=== PATIENT | female | born 1940 | race Two or more races ===

== ENCOUNTER 2020-02-25 21:09 | Inpatient (IN) | payer MEDICARE, OTHER ==
[~2020-02-25] VITALS: Ht 162.6 cm; Wt 87.3 kg
[2020-02-25] MEDS ORDERED: ACETAMINOPHEN 650 MG/SUPP.RECT RC ONE ×2 (21:25→21:30)
--- NOTE | 2020-02-25 21:31 | NUR ---
Rickie toledo in [facility] - 02/25/20 at 2137 by CHRISTAOR CALLED RT FOR COVID TEST
--- NOTE | 2020-02-25 21:34 | NUR ---
updated temp; rectal 100.7
--- NOTE | 2020-02-25 21:37 | NUR ---
CALLED LAB FOR COVID, CALLED RT FOR ABG.
--- NOTE | 2020-02-25 21:43 | NUR ---
RT AT BEDSIDE.
--- NOTE | 2020-02-25 21:44 | NUR ---
BIBRA FROM [facility] TO ER BED 5. AWAKE, ALERT AND ABLE TO FOLLOW COMMAND. IN MODERATE RESP DISTRESS, BREATHING RAPID AND SHALLOW W/ O2 SAT @ 95% ON 4LPM VIA NC. BROUGHT IN FOR SOB AND FEVER. RECTAL TEMP NOTED @ 100.7. NOTED WHEEZING. MD AT BEDSIDE FOR EVAL. IV LINE OBTAINED ON L HAND 20G. BLOOD DRAWN AND GIVEN TO SKI GUIDE AT BEDSIDE.. PT ON MONITOR WILL CONTINUE TO MONITOR PT.
[2020-02-25 21:45] LABS: BASOPHILS % (AUTO) 0.1 % (0.0-2.0); EOSINOPHILS % (AUTO) 0.1 % (0.0-6.0); HEMATOCRIT 41 % (33-45); HEMOGLOBIN 13.7 g/dL (11.5-14.8); LYMPHOCYTES # (AUTO) 0.8 /CMM (0.8-4.8); LYMPHOCYTES % (AUTO) 6.6 % (20.0-44.0); MEAN CORPUSCULAR HGB CONC 33 g/dl (31.0-36.0); MEAN CORPUSCULAR VOLUME 88 fL (82-100); MONOCYTES # (AUTO) 0.6 /CMM (0.1-1.30); MONOCYTES % (AUTO) 4.9 % (2.0-12.0); NEUTROPHILS # (AUTO) 10.5 /CMM (1.8-8.9); NEUTROPHILS % (AUTO) 88.3 % (43.0-81.0); PLATELET COUNT (AUTO) 285 /CMM (150-450); RED BLOOD CELL COUNT(AUTO) 4.68 MIL/uL (4.0-5.2); WHITE BLOOD COUNT (AUTO) 11.9 K/uL (4.3-11.0)
[2020-02-25 21:51] LABS: CARBON DIOXIDE 27 mmol/L (21-32); CHLORIDE 98 mmol/L (98-107); GLUCOSE 216 mg/dL (74-106); POTASSIUM 3.9 mmol/L (3.5-5.1); SODIUM SERUM 135 mmol/L (136-145); UREA NITROGEN, BLOOD 17 mg/dL (7-18)
[2020-02-25 21:54] LABS: ABG BASE EXCESS 0.2 mmol/L; ABG OXYGEN SATURATION 95.9 % (92.0-98.5); ABG PCO2 37.9 mmHg (35.0-45.0); ABG PH 7.426 (7.350-7.450); ABG PO2 81.1 mmHg (75.0-100.0); AaDO2 189.4 mmHg; COHb 0.7 % (0.5-1.5); MetHb 0.4 % (0.0-1.5); O2Hb 94.8 % (94.0-97.0); SITE, ABG Left Radial; VENT MODE, BG Nasal Cannula
--- NOTE | 2020-02-25 22:04 | NUR ---
CVID, FLU AND MRSA SWAB DONE. URINE COLLECTED BY IN & OUT CATH W/ STRICT STERILE TECHNIQUE OBSERVED
[2020-02-25 22:07] LABS: CREATINE KINASE, TOTAL 114 U/L (26-192); FERRITIN 117 ng/mL (8-388)
[2020-02-25 22:08] LABS: C-REACTIVE PROTEIN 16.1 mg/dL (0.0-0.9)
[2020-02-25 22:09] LABS: ALANINE AMINOTRANSFERASE 72 U/L (12-78); ALKALINE PHOSPHATASE 78 U/L (46-116); ASPARTATE AMINOTRANSFERASE 39 U/L (15-37); BILIRUBIN,TOTAL 0.8 mg/dL (0.2-1.0); CALCIUM, SERUM 8.8 mg/dL (8.5-10.1)
[2020-02-25 22:10] LABS: ALBUMIN 3.5 g/dL (3.4-5.0); TOTAL PROTEIN, SERUM 7.5 g/dL (6.4-8.2)
[2020-02-25 22:11] LABS: B-TYPE NATRIURETIC PEPTIDE 104 PG/ML (0-125)
[2020-02-25 22:15] LABS: APPEARANCE,URINE Clear (CLEAR); BILIRUBIN,URINE SMALL (NEGATIVE); BLOOD, URINE Negative Ery/uL (NEGATIVE); COLOR,URINE Dark (YELLOW); KETONES,URINE 40 (NEGATIVE); LEUKOCYTE ESTERASE ,URINE Negative (NEGATIVE); NITRITE, URINE Negative (NEGATIVE); PH,URINE 5.5 (5.0-8.0); PROTEIN,URINE 30 mg/dl (NEGATIVE); UGLUCOSE Negative (NEGATIVE); UROBILINOGEN,URINE 0.2 EU/dL (0.2)
[2020-02-25 22:49] LABS: BACTERIA,URINE Few /HPF (None Seen); MUCUS,URINE Few /LPF (None Seen); RBC,URINE 0-2 /HPF (0-2); SQUAMOUS EPITHELIAL CELL,UR Few /HPF (None Seen); WBC,URINE 0-2 /HPF (0-3)
[2020-02-25 23:13] LABS: D-DIMER 4.78 mg/L(FEU (0.17-0.50)
--- NOTE | 2020-02-25 23:35 | NUR ---
ER DOC ON PHONE WITH HOSPITALIST
[2020-02-26] VITALS (33 sets, daily range): BP systolic 64–148; BP diastolic 40–89
[2020-02-26] MEDS ORDERED: VANCOMYCIN 1 GM in IV D5W 250 ML IV ONE ×2
[2020-02-26] MEDS ORDERED: PIPERACILLIN /TAZOBACTAM 3.375 G in IV D5W 50 ML IV ONE ×2
--- NOTE | 2020-02-26 00:10 | NUR ---
ER DOC ON PHONE WITH JAME RADIOLOGIST
[2020-02-26] MEDS ORDERED: CHOL400T11 GT (00:13)
[2020-02-26] MEDS ORDERED: SITA100T PO (00:13)
[2020-02-26] MEDS ORDERED: PANT20TA2 PO (00:13)
[2020-02-26] MEDS ORDERED: MEMA10TA PO (00:13)
[2020-02-26] MEDS ORDERED: DONE10TA11 PO (00:13)
--- NOTE | 2020-02-26 00:18 | NUR ---
PAGED CLOTH NEUTRALIZER GEN SURGERY
[2020-02-26] MEDS ORDERED: PIPERACILLIN /TAZOBACTAM 3.375 G VIAL IV ONE ×2 (00:20→06:22)
[2020-02-26] MEDS ORDERED: VANCOMYCIN 1 GM VIAL ONE (00:20)
[2020-02-26 00:33] LABS: BILIRUBIN,DIRECT 0.3 mg/dL (0.0-0.2)
--- NOTE | 2020-02-26 00:45 | NUR ---
PAGED AIRCRAFT PAINTER GEN SURGERY. NO RESPONSE
--- NOTE | 2020-02-26 01:15 | NUR ---
PAGED RECREATION OFFICER GEN SURGERY. NO RESPONSE
--- NOTE | 2020-02-26 01:45 | NUR ---
PAGED OTR OWNER OPERATOR GEN SURGERY. NO RESPONSE
--- NOTE | 2020-02-26 02:00 | NUR ---
NGT INSERTED PER ORDERED. PLACEMENT VIRIFIED BY AUSCULTATION WITH POSTIVE GURGLING SOUND OVER EPIGASTRIC ABDOMEN. NOTED CLEAR LIQUID GASTRIC RESIDUAL.
--- NOTE | 2020-02-26 02:15 | NUR ---
PAGED DIRECTOR SCRIPT GEN SURGERY. NO RESPONSE
--- NOTE | 2020-02-26 02:45 | NUR ---
PAGED PAYMENT SPECIALIST GEN SURGERY. NO RESPONSE
--- NOTE | 2020-02-26 03:00 | NUR ---
PAGED MEDICATION MANAGER GEN SURGERY. NO RESPONSE
--- NOTE | 2020-02-26 03:13 | NUR ---
PT IN BED AWAKE AND RESPONSIVE. ON ONGOING INTERMITTENT SUCTIONING, VSS. WILL CONT TO MONITOR ,
--- NOTE | 2020-02-26 03:30 | NUR ---
PAGED STENCIL PRINTER GEN SURGERY. NO RESPONSE
--- NOTE | 2020-02-26 03:50 | NUR ---
PAGED ARMHOLE PRESSER GEN SURGERY. NO RESPONSE
--- NOTE | 2020-02-26 04:10 | NUR ---
PAGED EXPANSION ENVELOPE MAKER HAND GEN SURGERY. NO RESPONSE
[2020-02-26] MEDS ORDERED: ONDANSETRON HCL/PF 4 MG/2 ML VIAL ONE (04:35)
[2020-02-26] MEDS ORDERED: MORPHINE SULFATE INJ 4 MG/ML DISP.SYRIN ONE (04:35)
--- NOTE | 2020-02-26 04:35 | NUR ---
PAGED ARCHITECT INTERNSHIP GEN SURGERY. NO RESPONSE
--- NOTE | 2020-02-26 04:50 | NUR ---
PAGED ALLERGY AND IMMUNOLOGY SPECIALIST GEN SURGERY. NO RESPONSE
--- NOTE | 2020-02-26 04:51 | NUR ---
SECOND IV LINE STARTED ON R HAND W/ GOOD BLOOD DRAW
[2020-02-26] MEDS ORDERED: MORPHINE SULFATE INJ 4 MG/ML DISP.SYRIN IV ONE (05:00)
[2020-02-26] MEDS ORDERED: ONDANSETRON HCL/PF 4 MG/2 ML VIAL IV ONE (05:00)
--- NOTE | 2020-02-26 05:05 | NUR ---
PAGED CRAB STEAMER GEN SURGERY. NO RESPONSE
[2020-02-26] MEDS ORDERED: PIPERACILLIN /TAZOBACTAM 3.375 G in IV D5W 50 ML IV SCH ×2 (06:00→12:00)
--- NOTE | 2020-02-26 06:07 | NUR ---
PT WAS TRANSFERRED TO ICU UNDER ACLS
--- NOTE | 2020-02-26 06:15 | NUR ---
MARKETING SALES SUPERVISORBANKING CENTER MANAGER NOTES RECEIVED PATIENT FROM ER VIA RLIKELY, PATIENT ABLE TO AMBULATE 2 STEPS WITH STANDBY ASSISTANCE TO HOSPITAL BED. PATIENT IS AWAKE, ALERT AND ORIENTED X3, ABLE TO VERBALIZE NEEDS. PATIENT NOTED TO BE SHORT OF BREATH UPON MINIMAL EXERTION, WITH AUDIBLE WHEEZING. PATIENT ON O2 VIA NC @ 3LPM, SPO2 > 92% AT THIS TIME. SKIN INTACT, NOTED WITH SCATTERED SCARS. LEFT AND RIGHT HAND #20 GAUGE, PATENT AND INTACT, FLUSHED WITH NS, FREE FROM ANY S/S OF INFILTRATION OR PHLEBITIS. WILL START IV FLUIDS ORDERED
[2020-02-26] MEDS ORDERED: METRONIDAZOLE 500MG/ NS 100ML 100 ML IV ONE ×2 (06:23→11:55)
[2020-02-26] MEDS ORDERED: ACETAMINOPHEN 325 MG TABLET PO PRN (06:30)
[2020-02-26] MEDS ORDERED: ZOLPIDEM TARTRATE 5 MG TABLET PO PRN (06:30)
[2020-02-26] MEDS ORDERED: MAGNESIUM HYDROXIDE 30 ML UDC PO PRN (06:30)
[2020-02-26] MEDS ORDERED: HYDROCODONE/APAP 5/325MG 1 EACH TABLET PO PRN (06:30)
[2020-02-26] MEDS ORDERED: DEXTROSE 50%-WATER 50 ML DISP.SYRIN IV PRN (06:30)
[2020-02-26] MEDS ORDERED: IV NS 0.9% 1,000 ML IV PRN (06:30)
[2020-02-26] MEDS ORDERED: ONDANSETRON HCL/PF 4 MG/2 ML VIAL IVP PRN (06:30)
[2020-02-26] MEDS ORDERED: Z GUARD REMEDY 2 OZ OINT TP PRN (06:30)
[2020-02-26] MEDS: METRONIDAZOLE 500MG/ NS 100ML 500 MG in PREMIX 1 EA IV SCH ×3 (06:32→19:06)
--- NOTE | 2020-02-26 07:30 | NUR ---
HOME HEALTH MANAGER AM NOTES PATIENT IN BED, RESTING, AWAKE, ALERT AND ORIENTED X3, ABLE TO VERBALIZE NEEDS. PATIENT NOTED TO BE SHORT OF BREATH UPON MINIMAL EXERTION, WITH AUDIBLE WHEEZING. PATIENT ON O2 VIA NC @ 3LPM, SPO2 > 92% AT THIS TIME. SKIN INTACT, NOTED WITH SCATTERED SCARS. LEFT AND RIGHT HAND #20 GAUGE, PATENT AND INTACT, FLUSHED WITH NS, NS AT 75 ML/HR ONGOING, SITE CLEAR, REMAIN ON NPO FOR NOW, DR. MATT RITTER TO SEE PATIENT. INDEPENDENT OF BED MOBILITY, SAFETY MEASURES IN PLACE, SR UP X 2, CALL LIGHT WITHIN REACH, BED LOW LOCKED, WILL MONITOR CLOSELY.
[2020-02-26 07:47] LABS: BASOPHILS % (AUTO) 0.1 % (0.0-2.0); HEMATOCRIT 37 % (33-45); HEMOGLOBIN 12.4 g/dL (11.5-14.8); LYMPHOCYTES % (AUTO) 5.7 % (20.0-44.0); MEAN CORPUSCULAR HGB CONC 33 g/dl (31.0-36.0); MEAN CORPUSCULAR VOLUME 88 fL (82-100); MONOCYTES # (AUTO) 1.1 /CMM (0.1-1.30); MONOCYTES % (AUTO) 6.4 % (2.0-12.0); NEUTROPHILS # (AUTO) 15.4 /CMM (1.8-8.9); NEUTROPHILS % (AUTO) 87.8 % (43.0-81.0); PLATELET COUNT (AUTO) 249 /CMM (150-450); RED BLOOD CELL COUNT(AUTO) 4.24 MIL/uL (4.0-5.2); WHITE BLOOD COUNT (AUTO) 17.6 K/uL (4.3-11.0)
[2020-02-26 08:01] LABS: CALCIUM, SERUM 8.3 mg/dL (8.5-10.1); MAGNESIUM 1.7 mg/dL (1.8-2.4); PHOSPHORUS 4.1 mg/dL (2.5-4.9); POTASSIUM 4.1 mmol/L (3.5-5.1)
[2020-02-26] MEDS ORDERED: FEE PK DOSING 1 MIN EA MC ONE (08:01)
--- NOTE | 2020-02-26 09:15 | NUR ---
RN NOTES PATIENT NPO SEEN BY DR. EMERSON RITTER EARLIER. FOR EX-LAP VS OPEN. CONSENT OBTAINED FROM DAUGHTER BEN PALMER,
[2020-02-26] MEDS: Magnesium 1GM/D5W 100ML PREMIX 100 ML IV SCH ×2 (10:03→11:03)
--- NOTE | 2020-02-26 10:25 | NUR ---
RN NOTES PATIENT PICKED UP FOR SCHEDULED SURGERY
[2020-02-26] MEDS ORDERED: FENTANYL PF 100MCG/2ML AMPUL ONE ×2 (10:39→10:40)
[2020-02-26] MEDS ORDERED: LIDOCAINE HCL/MPF 1% 30 ML VIAL IJ ONE (10:47)
[2020-02-26] MEDS ORDERED: BUPIVACAINE MPF 0.5% W/EPI INJ 30 ML VIAL ONE (10:47)
[2020-02-26] MEDS ORDERED: PIPERACILLIN /TAZOBACTAM 3.375 G in IV D5W 100 ML IV SCH (12:00)
[2020-02-26] MEDS: BLOOD SUGAR DIAGNOSTIC 1 EACH STRIP IN SCH ×2 (12:00→18:18)
[2020-02-26] MEDS ORDERED: MIDAZOLAM HCL 2 MG/2ML VIAL ONE ×2 (12:23)
[2020-02-26] MEDS ORDERED: METHYLENE BLUE 10 ML VIAL ONE (13:22)
[2020-02-26] MEDS ORDERED: NOREPINEPHRINE 8 MG in IV D5W 500 ML IV PRN (13:30)
[2020-02-26] MEDS ORDERED: NOREPINEPHRINE 8 MG in IV NS 0.9% 242 ML IV PRN ×2 (13:30→23:30)
[2020-02-26] MEDS ORDERED: ALBUMIN 5% 250 ML IV ONE ×2 (13:36→13:56)
[2020-02-26] MEDS ORDERED: ALBUMIN 25% 0 ML IV ONE (13:36)
[2020-02-26 14:22] LABS: HEMOGLOBIN 10.6 g/dL (11.5-14.8)
[2020-02-26] MEDS ORDERED: EPINEPHRINE (1:1000) 5 MG in IV NS 0.9% 250 ML IV PRN (14:30)
[2020-02-26] MEDS ORDERED: MORPHINE SULFATE INJ 2 MG/ML DISP.SYRIN IV PRN (15:30)
--- NOTE | 2020-02-26 15:45 | NUR ---
RN NOTES PATIENT BACK FROM SURGERY, S/P LAPAROSCOPIC COLON RESECTION ; PERFORATED VISCUS, BY DR. EMERSON RITTER. PATIENT NONVERBAL, ASLEEP, LETHARGIC, ETT 7.5/ 22 CM LIP. SETTING ASSISTED TV 500, FIO2 100%, AC 18 PEEP 5.NOT IN ANY DISTRESS. WITH SURGICAL INCISION MID ABDOMEN, CDI DRESSING IN PLACE. BESS DRAIN IN PLACE; RIGHT SIDE ABDOMEN WITH 115 ML SANGUINOUS OUTPUT AND LEFT SIDE ABDOMEN WITH 45 ML SANGUINOUS OUTPUT. PHILLIP CATHETER IN PLACE WITH GREENISH URINE OUTPUT ADEQUATE AMOUNT. PATIENT ACCOMPANIED BY DR. GARCIA ANESTHESIOLOGIST, SPOKE WITH DR. GOMEZ. PER HIM PATIENT WAS GIVEN 3700 ML LR AND 500 ML ALBUMIN WITH BLOOD LOSS OF 500 ML. 2 UNITS PRBC ON STAND BY. PER DR. RITTER, ORDERED FOR STAT CXR, CBC, BMP, CMP, LIPID PANEL AND ABG.
[2020-02-26] MEDS ORDERED: FLUCONAZOLE IN NS,PREMIX 400 MG in PREMIX 1 EA IV ONE ×2 (16:00)
[2020-02-26 16:28] LABS: ABG BASE EXCESS -8.9 mmol/L; ABG OXYGEN SATURATION 97.8 % (92.0-98.5); ABG PCO2 43.3 mmHg (35.0-45.0); ABG PH 7.239 (7.350-7.450); ABG PO2 134.9 mmHg (75.0-100.0); AaDO2 534.8 mmHg; COHb 0.3 % (0.5-1.5); MetHb 0.3 % (0.0-1.5); O2Hb 97.2 % (94.0-97.0); PEEP,BG 5 cm H2O; SITE, ABG A-Line; VT, ABG 500 mL
--- NOTE | 2020-02-26 16:35 | NUR ---
RN NOTES RECEIVED A CALL FROM ONE OF THE DAUGHTER ASKING FOR UPDATE, PER DAUGHTER, PATIENT'S REAL NAME IS GALINDO TERRAZAS BORN ON 44 BUT WHAT PATIENT IS ADMITTED BLAISE TERRAZAS [birth year]. PER ADMITTING, ITS BECAUSE IT IS WHAT IS SHOWING IN HER INSURANCE. WILL TALK TO THE DENTAL EQUIPMENT REPAIRER ABOUT THE SITUATION. CHARGE NURSE YOGESH LEWIS.
[2020-02-26 16:50] LABS: BASOPHILS % (AUTO) 0.2 % (0.0-2.0); EOSINOPHILS % (AUTO) 0.2 % (0.0-6.0); HEMATOCRIT 32 % (33-45); HEMOGLOBIN 10.4 g/dL (11.5-14.8); LYMPHOCYTES # (AUTO) 1.1 /CMM (0.8-4.8); LYMPHOCYTES % (AUTO) 32.7 % (20.0-44.0); MEAN CORPUSCULAR HGB CONC 32 g/dl (31.0-36.0); MEAN CORPUSCULAR VOLUME 91 fL (82-100); MONOCYTES # (AUTO) 0.1 /CMM (0.1-1.30); MONOCYTES % (AUTO) 3.8 % (2.0-12.0); NEUTROPHILS # (AUTO) 2.1 /CMM (1.8-8.9); NEUTROPHILS % (AUTO) 63.1 % (43.0-81.0); PLATELET COUNT (AUTO) 210 /CMM (150-450); RED BLOOD CELL COUNT(AUTO) 3.58 MIL/uL (4.0-5.2); WHITE BLOOD COUNT (AUTO) 3.3 K/uL (4.3-11.0)
[2020-02-26 16:58] LABS: POTASSIUM 3.3 mmol/L (3.5-5.1)
[2020-02-26 17:03] LABS: BILIRUBIN,TOTAL 1.1 mg/dL (0.2-1.0); TOTAL PROTEIN, SERUM 3.8 g/dL (6.4-8.2)
[2020-02-26] MEDS: NOREPINEPHRINE 8 MG in IV NS 0.9% 242 ML IV PRN ×2 (17:34→22:15)
[2020-02-26 17:44] LABS: CHOLESTEROL 33 mg/dL (<200); HDL CHOLESTEROL 18 mg/dL (40-60); LDL 13 mg/dL (0-99); TRIGLYCERIDES 30 mg/dL (30-150)
[2020-02-26] MEDS: HYDROCORTISONE SOD SUCCINATE 100 MG/2 ML VIAL IV SCH (17:50)
[2020-02-26] MEDS: VANCOMYCIN 1 GM in IV D5W 250 ML IV SCH (17:54)
[2020-02-26] MEDS: PROPOFOL 100 ML IV PRN (18:28)
[2020-02-26] MEDS: INSULIN REGULAR, HUMAN 100 UNIT/ML 3 ML VIAL SQ PRN (18:29)
--- NOTE | 2020-02-26 20:00 | NUR ---
RN NOTES RECEIVED PATIENT ORALLY INTUBATED WITH ETT AND VENT SETTING TOLERATED WELL. FIO2 CHANGE BY RT TO 80% FROM 100% PATIENT SEDATED WITH DIPRIVAN. OPENS EYES BUT REMAINED CALM AND COOPERATIVE. RESPONSIVE TO TACTILE STIMULI. NGT INTACT AND PATENT CONNECTED TO LIS W/ LIGHT GREENISH OUT PUT. IV SITE ON RIGHT AND LEFT HAND REMAINED INTACT AND PATENT. PATIENT WITH A-LINE CALIBRATED AND LEVELED. IV SITE ON RIJ RUNNING WITH NS @ 75 ML/HR. , LEVOPHED AND PROPOFOL WILL TITRATED ORDERED. 2 BESS ON LEFT AND RIGHT SIDE DRAINED WITH SEROSANGUINEOUS OUTPUT AND COLOSTOMY BAG WITH LIGHT GREENISH AND BROWNISH LIQ. STOOL. MID ABDOMEN WITH INTACT DRESSING. KEPT PT CLEAN AND DRY. REPOSITIONED Q2H AND PRN. WILL CLOSELY MONITOR.
--- NOTE | 2020-02-26 20:03 | NUR ---
RN NOTES ALL NEEDS MET AT THIS TIME. COVID TESTING CANCELLED BY KM AGUIRRE PROFESSOR OF EDUCATION FOR DR. EMERSON RITTER EARLIER. CHARGE NURSE YOGESH LEWIS. ENDORSED TO NEXT SHIFT FOR VENUS.
[2020-02-26] MEDS: MEROPENEM 1 G in IV NS 0.9% 100 ML IV SCH (21:13)
[2020-02-27] VITALS (89 sets, daily range): BP systolic 52–177; BP diastolic 30–101
[2020-02-27] MEDS: METRONIDAZOLE 500MG/ NS 100ML 500 MG in PREMIX 1 EA IV SCH ×4 (00:03→18:01)
[2020-02-27] MEDS: NOREPINEPHRINE 8 MG in IV NS 0.9% 242 ML IV PRN ×6 (00:05→08:50)
[2020-02-27] MEDS ORDERED: ACETAMINOPHEN 650 MG/20.3 ML UDC NG PRN (00:30)
[2020-02-27] MEDS ORDERED: ACETAMINOPHEN 650 MG/20 ML UDC- SA PATIENTS-PAIN ONLY GT PRN (00:30)
[2020-02-27] MEDS: BLOOD SUGAR DIAGNOSTIC 1 EACH STRIP IN SCH ×5 (00:57→23:41)
[2020-02-27] MEDS: INSULIN REGULAR, HUMAN 100 UNIT/ML 3 ML VIAL SQ PRN ×5 (01:02→23:43)
[2020-02-27] MEDS: PROPOFOL 100 ML IV PRN ×2 (01:03→04:42)
[2020-02-27] MEDS ORDERED: NOREPINEPHRINE 4 MG/4 ML AMPUL IV ONE ×3 (01:50→06:43)
[2020-02-27 05:00] LABS: BASOPHILS % (AUTO) 0.1 % (0.0-2.0); EOSINOPHILS % (AUTO) 0.1 % (0.0-6.0); HEMATOCRIT 37 % (33-45); HEMOGLOBIN 12.1 g/dL (11.5-14.8); LYMPHOCYTES % (AUTO) 8.8 % (20.0-44.0); MEAN CORPUSCULAR HGB CONC 33 g/dl (31.0-36.0); MEAN CORPUSCULAR VOLUME 90 fL (82-100); MONOCYTES # (AUTO) 0.6 /CMM (0.1-1.30); MONOCYTES % (AUTO) 5.1 % (2.0-12.0); NEUTROPHILS # (AUTO) 9.4 /CMM (1.8-8.9); NEUTROPHILS % (AUTO) 85.9 % (43.0-81.0); PLATELET COUNT (AUTO) 277 /CMM (150-450); RED BLOOD CELL COUNT(AUTO) 4.06 MIL/uL (4.0-5.2); WHITE BLOOD COUNT (AUTO) 10.9 K/uL (4.3-11.0)
[2020-02-27 05:27] LABS: ALANINE AMINOTRANSFERASE 163 U/L (12-78); ALBUMIN 1.8 g/dL (3.4-5.0); ALKALINE PHOSPHATASE 32 U/L (46-116); ASPARTATE AMINOTRANSFERASE 141 U/L (15-37); BILIRUBIN,TOTAL 0.6 mg/dL (0.2-1.0); CARBON DIOXIDE 20 mmol/L (21-32); CHLORIDE 105 mmol/L (98-107); CREATININE 1.8 mg/dL (0.6-1.3); GLUCOSE 270 mg/dL (74-106); MAGNESIUM 1.4 mg/dL (1.8-2.4); PHOSPHORUS 2.6 mg/dL (2.5-4.9); POTASSIUM 3.8 mmol/L (3.5-5.1); SODIUM SERUM 137 mmol/L (136-145); TOTAL PROTEIN, SERUM 4.4 g/dL (6.4-8.2); UREA NITROGEN, BLOOD 23 mg/dL (7-18)
[2020-02-27] MEDS ORDERED: PHENYLEPHRINE 50 MG in IV NS 0.9% 245 ML IV PRN (07:00)
--- NOTE | 2020-02-27 07:00 | NUR ---
RN NOTES PATIENT LEVOPHED ON MAC DOSE 1 MCG/KG/MIN AND BP STILL LOW. INFORMED KEH, SURGICAL SERVICES ASST WITH NEW ORDER TO ADD DAFNE STANDARD AND TITRATED PROTOCOL ORDER, NOTED AND CARRIED OUT ORDER. NO SIGNIFICANT VENUS NOTED PATIENT REMAINED RESPONSIVE. LOW GRADE FEVER NOTED. PRN MEDICINE REMAINED EFFECTIVE. KEPT PT CLEAN AND DRY. ENDORSED CONTINUITY OF CARE TO AM NURSE.
[2020-02-27] MEDS ORDERED: IV LR 1000 ML 1,000 ML IV ONE (07:30)
--- NOTE | 2020-02-27 08:00 | NUR ---
ICU/RN: INITIAL NOTES,AM RECEIVED REPORT FROM NIGHT NURSE. PT ALERT, FOLLOWS COMMANDS. ON LOW DOSE LEVO, WILL TITRATE UP FOR COMFORT. PT SINUS TACH ON TELE. COLOSTOMY PRESENT, LIQUID OUTPUT NOTED. RIGHT AND LEFT BESS DRAIN NOTED WIT SEROSANGUINEOUS DRAINAGE. PT INTUBATED ETT 7.5/22 CM AT THE LIP, ON VENT SETTINGS ORDERED, NO DISTRESS NOTED. NG TO LIS, NPO AT THIS TIME. CENTRAL LINE AND PIVS PATENT AND INTACT, LEVO INFUSING FOR BP SUPPORT. ALL NEEDS WILL BE ATTENDED TO, SAFETY MEASURES TAKEN, BED IN LOW POSITION, SIDE RAILS UP, CALL LIGHT WITHIN REACH. BILATERAL SOFT RESTRAINTS IN PLACE, ASSESSED PER PROTOCOL. ABDOMINAL INCISION DRESSING CLEAN AND DRY.
[2020-02-27] MEDS: Magnesium 1GM/D5W 100ML PREMIX 100 ML IV SCH ×2 (08:59→10:39)
[2020-02-27] MEDS: HYDROCORTISONE SOD SUCCINATE 100 MG/2 ML VIAL IV SCH ×3 (09:01→16:20)
[2020-02-27 09:17] LABS: ABG BASE EXCESS -7.5 mmol/L; ABG OXYGEN SATURATION 96.9 % (92.0-98.5); ABG PCO2 25.2 mmHg (35.0-45.0); ABG PH 7.409 (7.350-7.450); ABG PO2 75.5 mmHg (75.0-100.0); AaDO2 468.4 mmHg; COHb 0.2 % (0.5-1.5); MetHb 0.3 % (0.0-1.5); O2Hb 96.4 % (94.0-97.0); PEEP,BG 5 cm H2O; SITE, ABG Right Radial; VT, ABG 550 mL
[2020-02-27] MEDS: MEROPENEM 1 G in IV NS 0.9% 100 ML IV SCH ×2 (09:50→20:37)
[2020-02-27] MEDS: NOREPINEPHRINE 32 MG in IV NS 0.9% 218 ML IV PRN ×2 (10:40→18:10)
[2020-02-27] MEDS: VANCOMYCIN 1 GM in IV D5W 250 ML IV SCH (14:12)
[2020-02-27] MEDS: IV LR 1000 ML 1,000 ML IV PRN (15:09)
[2020-02-27] MEDS: FLUCONAZOLE IN NS,PREMIX 200 MG in PREMIX 1 EA IV SCH ×2 (15:13)
[2020-02-27] MEDS: ACETAMINOPHEN 650 MG/SUPP.RECT RC PRN (16:20)
[2020-02-27] MEDS: PROPOFOL 10MG/ML 50ML 50 ML IV PRN ×2 (16:21→23:24)
--- NOTE | 2020-02-27 18:00 | NUR ---
ICU/RN: BESS DRAIN RIGHT-35ML SEROSANGUINEOUS DRAINAGE LEFT-25ML SEROSANGUINEOUS DRAINAGE COLOSTOMY-20ML LIQUID OUTPUT
--- NOTE | 2020-02-27 18:30 | NUR ---
ICU/RN: RIGHT IJ TLC PULLED OUT. NOTIFIED. NEW ORDERS FOR PICC LINE RECEIVED. WILL FOLLOW THROUGH.
--- NOTE | 2020-02-27 19:33 | NUR ---
ICU/RN: ENDING NOTES,AM REPORT ENDORSED TO NIGHT NURSE FOR VENUS. ALL NEEDS ATTENDED TO. PT INTUBATED ON VENT SETTINGS ORDERED BY MD, NO ACUTE DISTRESS NOTED. SINUS TACH ON TELE. TEMP OF 102.1 NOTED, RECTAL ACETAMINOPHEN ADMINISTERED. PICC RN AT BEDSIDE FOR PICC LINE INSERTION, CONSENT IN CHART. LEVO AND DIP INFUSING FOR BP SUPPORT. PT NPO. NG TO LIS. BED IN LOW POSITION, SIDE RAILS UP, CALL LIGHT WITHIN REACH, ON BILATERAL SOFT RESTRAINTS, ASSESSED PER PROTOCOL.
[2020-02-28] VITALS (91 sets, daily range): BP systolic 85–167; BP diastolic 31–96
[2020-02-28] MEDS: ACETAMINOPHEN 650 MG/SUPP.RECT RC PRN (00:23)
[2020-02-28] MEDS: IV LR 1000 ML 1,000 ML IV PRN ×3 (01:00→18:11)
[2020-02-28] MEDS: NOREPINEPHRINE 32 MG in IV NS 0.9% 218 ML IV PRN ×2 (02:01→16:41)
[2020-02-28] MEDS: PROPOFOL 10MG/ML 50ML 50 ML IV PRN ×3 (04:18→22:20)
[2020-02-28 06:00] LABS: ALANINE AMINOTRANSFERASE 505 U/L (12-78); ALKALINE PHOSPHATASE 55 U/L (46-116); ASPARTATE AMINOTRANSFERASE 495 U/L (15-37); BILIRUBIN,TOTAL 0.6 mg/dL (0.2-1.0); CALCIUM, SERUM 6.6 mg/dL (8.5-10.1); CARBON DIOXIDE 19 mmol/L (21-32); CHLORIDE 106 mmol/L (98-107); CREATININE 1.9 mg/dL (0.6-1.3); GLUCOSE 286 mg/dL (74-106); MAGNESIUM 1.9 mg/dL (1.8-2.4); PHOSPHORUS 3.1 mg/dL (2.5-4.9); POTASSIUM 3.8 mmol/L (3.5-5.1); SODIUM SERUM 137 mmol/L (136-145); TOTAL PROTEIN, SERUM 4.3 g/dL (6.4-8.2); UREA NITROGEN, BLOOD 28 mg/dL (7-18)
--- NOTE | 2020-02-28 06:00 | NUR ---
ELEVATOR INSTALLER APPRENTICE NOTES DRAIN OUTPUTS RIGHT BESS: 30 ML SEROUS LEFT BESS: 80 ML SEROSANGUINEOUS RIGHT ILEOSTOMY: 25ML PINK
[2020-02-28 06:16] LABS: ALBUMIN 1.3 g/dL (3.4-5.0)
[2020-02-28 06:43] LABS: BASOPHILS % (AUTO) 0.1 % (0.0-2.0); EOSINOPHILS % (AUTO) 0.1 % (0.0-6.0); HEMATOCRIT 31 % (33-45); HEMOGLOBIN 10.2 g/dL (11.5-14.8); LYMPHOCYTES # (AUTO) 1.3 /CMM (0.8-4.8); LYMPHOCYTES % (AUTO) 5.5 % (20.0-44.0); MEAN CORPUSCULAR HGB CONC 33 g/dl (31.0-36.0); MEAN CORPUSCULAR VOLUME 88 fL (82-100); MONOCYTES # (AUTO) 1.7 /CMM (0.1-1.30); MONOCYTES % (AUTO) 6.9 % (2.0-12.0); NEUTROPHILS # (AUTO) 21.1 /CMM (1.8-8.9); NEUTROPHILS % (AUTO) 87.4 % (43.0-81.0); PLATELET COUNT (AUTO) 215 /CMM (150-450); RED BLOOD CELL COUNT(AUTO) 3.53 MIL/uL (4.0-5.2); WHITE BLOOD COUNT (AUTO) 24.1 K/uL (4.3-11.0)
[2020-02-28] MEDS: BLOOD SUGAR DIAGNOSTIC 1 EACH STRIP IN SCH ×3 (06:55→18:09)
[2020-02-28] MEDS: INSULIN REGULAR, HUMAN 100 UNIT/ML 3 ML VIAL SQ PRN ×3 (06:55→18:12)
[2020-02-28] MEDS: VANCOMYCIN 1 GM in IV D5W 250 ML IV SCH (07:00)
--- NOTE | 2020-02-28 08:00 | NUR ---
ICU/RN: INITIAL NOTES,AM RECEIVED REPORT FROM NIGHT NURSE. PT ALERT, FOLLOWS COMMANDS. ON LOW DOSE LEVO, WILL TITRATE UP FOR COMFORT. PT SINUS TACH ON TELE. COLOSTOMY PRESENT, LIQUID OUTPUT NOTED. RIGHT AND LEFT BESS DRAIN NOTED WIT SEROSANGUINEOUS DRAINAGE. PT INTUBATED ETT 7.5/22 CM AT THE LIP, ON VENT SETTINGS ORDERED, NO DISTRESS NOTED. NG TO LIS, NPO AT THIS TIME. PICC AND PIVS PATENT AND INTACT, LEVO INFUSING FOR BP SUPPORT. ALL NEEDS WILL BE ATTENDED TO, SAFETY MEASURES TAKEN, BED IN LOW POSITION, SIDE RAILS UP, CALL LIGHT WITHIN REACH. BILATERAL SOFT RESTRAINTS IN PLACE, ASSESSED PER PROTOCOL. ABDOMINAL INCISION DRESSING CLEAN AND DRY.
[2020-02-28] MEDS: MEROPENEM 1 G in IV NS 0.9% 100 ML IV SCH ×2 (08:40→21:45)
[2020-02-28] MEDS: HYDROCORTISONE SOD SUCCINATE 100 MG/2 ML VIAL IV SCH ×3 (08:40→18:09)
[2020-02-28 08:46] LABS: ABG BASE EXCESS -4.8 mmol/L; ABG OXYGEN SATURATION 98.4 % (92.0-98.5); ABG PCO2 27.1 mmHg (35.0-45.0); ABG PH 7.447 (7.350-7.450); ABG PO2 128.4 mmHg (75.0-100.0); AaDO2 413.6 mmHg; COHb 0.3 % (0.5-1.5); MetHb 0.3 % (0.0-1.5); O2Hb 97.8 % (94.0-97.0); PEEP,BG 5 cm H2O; SITE, ABG Right Radial; VT, ABG 550 mL
--- NOTE | 2020-02-28 09:00 | NUR ---
ICU/RN: PT ON DIPRIVAN, STILL ABLE TO FOLLOW COMMANDS AND OPENS EYES. WILL TITRATE FOR COMFORT PER PROTOCOL
--- NOTE | 2020-02-28 10:00 | NUR ---
RT PER DR CARBALLO, DECREASED FIO2 TO 60%
--- NOTE | 2020-02-28 18:00 | NUR ---
ICU/RN: BESS DRAIN OUTPUT [id number]
[2020-02-28] MEDS: FLUCONAZOLE IN NS,PREMIX 200 MG in PREMIX 1 EA IV SCH ×2 (18:10)
--- NOTE | 2020-02-28 18:53 | NUR ---
ICU/RN: ENDING NOTES,AM REPORT WILL BE ENDORSED TO NIGHT NURSE FOR VENUS. ALL NEEDS ATTENDED TO. PT INTUBATED ON VENT SETTINGS ORDERED BY MD, NO ACUTE DISTRESS NOTED. SINUS TACH ON TELE. PICC AND PIV PATENT AND INTACT, LEVO AND DIP INFUSING FOR BP SUPPORT. PT NPO. NG TO LIS. BED IN LOW POSITION, SIDE RAILS UP, CALL LIGHT WITHIN REACH, ON BILATERAL SOFT RESTRAINTS, ASSESSED PER PROTOCOL. BESS DRAINS INTACT, OUTPUT NOTED.
--- NOTE | 2020-02-28 19:30 | NUR ---
SPEECH LANGUAGE PATHOLOGIST ASSISTANT RCD PT S/P SUBTOTAL COLECTOMY. PT IS SEDATED ON DIPRIVAN AT 15 MCG/KG/MIN; ATTEMPTING TO WEAN PT OFF SEDATION. PT W/BLSW RESTRAINTS IN PLACE. HOWEVER PT IS ABLE TO FOLLOW COMMANDS. NSR ON MONITOR. PT HAS THICK WHITE SECRETIONS. PROVIDED ORAL CARE. R NARE NG TUBE LIS. BL BESS DRAIN W/SEROSANGUINEOUS OUTPUT. MIDLINE INCISION W/BETADINE OVER IT. C/D/I. PHILLIP CATH DRAINING DARK YELLOW/GREEN URINE. SAPPHIRE PICC PATENT W/GOOD BLOOD RETURN.
--- NOTE | 2020-02-28 19:55 | NUR ---
PT RECEIVED INTUBATED ON [facility] VENT ON CHARTED SETTINGS. NO SIGNS OF RESP DISTRESS AT THIS MOMENT. AIRWAY PATENT AND SECURED. TIN ASSORTER DONE. PT SUCTIONED. ALARMS SET AND AUDIBLE. AMBUBAG AT BEDSIDE. VENT PLUGGED INTO TO RED OUTLET. WILL CONT TO MONITOR. Addendum: 02/28/20 at 2214 by NACHO KEY RT Amended: Links added.
[2020-02-29] VITALS (64 sets, daily range): BP systolic 81–144; BP diastolic 44–89
[2020-02-29] MEDS: BLOOD SUGAR DIAGNOSTIC 1 EACH STRIP IN SCH ×4 (00:02→18:31)
[2020-02-29] MEDS: IV NS 0.9% 250 ML IV PRN (00:02)
[2020-02-29] MEDS: VANCOMYCIN 1.25 GM in IV D5W 250 ML IV SCH ×2 (00:02→17:28)
[2020-02-29] MEDS: INSULIN REGULAR, HUMAN 100 UNIT/ML 3 ML VIAL SQ PRN ×4 (01:37→18:24)
[2020-02-29] MEDS: IV LR 1000 ML 1,000 ML IV PRN ×2 (01:55→12:36)
--- NOTE | 2020-02-29 04:00 | NUR ---
INSURANCE CLAIMS PROCESSOR PT REQUIRES FREQUENT SUCTIONING. PT ABLE TO FOLLOW COMMANDS DURING SUCTIONING.
[2020-02-29 05:19] LABS: ALANINE AMINOTRANSFERASE 470 U/L (12-78); ALKALINE PHOSPHATASE 100 U/L (46-116); ASPARTATE AMINOTRANSFERASE 424 U/L (15-37); BILIRUBIN,TOTAL 0.7 mg/dL (0.2-1.0); CALCIUM, SERUM 6.6 mg/dL (8.5-10.1); CARBON DIOXIDE 25 mmol/L (21-32); CHLORIDE 106 mmol/L (98-107); CREATININE 1.5 mg/dL (0.6-1.3); GLUCOSE 228 mg/dL (74-106); MAGNESIUM 2.1 mg/dL (1.8-2.4); PHOSPHORUS 2.9 mg/dL (2.5-4.9); POTASSIUM 3.7 mmol/L (3.5-5.1); SODIUM SERUM 137 mmol/L (136-145); TOTAL PROTEIN, SERUM 4.2 g/dL (6.4-8.2); UREA NITROGEN, BLOOD 30 mg/dL (7-18)
[2020-02-29] MEDS: PROPOFOL 10MG/ML 50ML 50 ML IV PRN ×2 (05:30→09:00)
[2020-02-29 05:50] LABS: ALBUMIN 1.2 g/dL (3.4-5.0)
--- NOTE | 2020-02-29 06:00 | NUR ---
ENCHILADA MAKER BESS OUTPUT LEFT BESS DRAIN 100 RIGHT BESS DRAIN 200 NG TUBE 550 ML OUTPUT
[2020-02-29] MEDS: NOREPINEPHRINE 32 MG in IV NS 0.9% 218 ML IV PRN (06:45)
[2020-02-29 07:49] LABS: ABG BASE EXCESS -0.1 mmol/L; ABG OXYGEN SATURATION 97.8 % (92.0-98.5); ABG PCO2 30.5 mmHg (35.0-45.0); ABG PH 7.491 (7.350-7.450); ABG PO2 106.6 mmHg (75.0-100.0); AaDO2 287.7 mmHg; COHb 0.3 % (0.5-1.5); MetHb 0.3 % (0.0-1.5); O2Hb 97.2 % (94.0-97.0); PEEP,BG 5 cm H2O; SITE, ABG Right Radial; VT, ABG 550 mL
[2020-02-29 08:35] LABS: BASOPHILS % (AUTO) 0.2 % (0.0-2.0); EOSINOPHILS % (AUTO) 0.1 % (0.0-6.0); HEMATOCRIT 24 % (33-45); HEMOGLOBIN 8.1 g/dL (11.5-14.8); LYMPHOCYTES % (AUTO) 5.6 % (20.0-44.0); MEAN CORPUSCULAR HGB CONC 34 g/dl (31.0-36.0); MEAN CORPUSCULAR VOLUME 88 fL (82-100); MONOCYTES # (AUTO) 0.9 /CMM (0.1-1.30); MONOCYTES % (AUTO) 4.9 % (2.0-12.0); NEUTROPHILS # (AUTO) 16.3 /CMM (1.8-8.9); NEUTROPHILS % (AUTO) 89.2 % (43.0-81.0); PLATELET COUNT (AUTO) 154 /CMM (150-450); RED BLOOD CELL COUNT(AUTO) 2.73 MIL/uL (4.0-5.2); WHITE BLOOD COUNT (AUTO) 18.3 K/uL (4.3-11.0)
[2020-02-29] MEDS: MEROPENEM 1 G in IV NS 0.9% 100 ML IV SCH ×2 (09:22→21:17)
[2020-02-29] MEDS: HYDROCORTISONE SOD SUCCINATE 100 MG/2 ML VIAL IV SCH ×2 (09:23→17:28)
[2020-02-29] MEDS ORDERED: DC PROPOFOL WHEN EXTUBATED XX PRN (12:00)
--- NOTE | 2020-02-29 12:45 | NUR ---
RT PLACED PT ON SIMV 4 PS 15 40% +5 PER MD ORDER. PT OFF SEDATION, AWAKE AND ALERT, WILL MONITOR.
[2020-02-29 14:08] LABS: ABG OXYGEN SATURATION 91.1 % (92.0-98.5); ABG PH 7.488 (7.350-7.450); ABG PO2 61.2 mmHg (75.0-100.0); AaDO2 188.4 mmHg; COHb 0.3 % (0.5-1.5); O2Hb 90.8 % (94.0-97.0); PEEP,BG 5 cm H2O; SITE, ABG Right Radial; VENT MODE, BG SIMV PS=15; VT, ABG 550 mL
--- NOTE | 2020-02-29 15:00 | NUR ---
RT POST ABG ON WEANING MODE, PER MD ORDER EXTUBATE PT. PT SUCCESSFULLY EXTUBATED, PLACED ON 6L NC. STRONG COUGH NO STRIDOR AUSCULTATED. SP02 94-95%. WILL CONTINUE TO MONITOR.
[2020-02-29] MEDS: PANTOPRAZOLE 80 MG in IV NS 0.9% 500 ML IV PRN (16:16)
[2020-02-29] MEDS: FLUCONAZOLE IN NS,PREMIX 200 MG in PREMIX 1 EA IV SCH ×2 (16:17)
--- NOTE | 2020-02-29 19:15 | NUR ---
RN OPENING NOTES RECEIVED PATIENT FROM MEGAN AMOR. PATIENT ICU OVERFLOW. PATIENT IN BED AWAKE, A/OX2, ABLE TO MAKE NEEDS KNOWN VERBALLY. ON OXYGEN 6L VIA NASAL CANNULA, SATURATING 92-93% AT THE MOMENT. ON TELE MONITOR SR WITH HR 80'S. IV SITE SAPPHIRE PICC FLUSHING AND INTACT, PROTONIX DRIP RUNNING AT 50ML/HR AND LR RUNNING AT 70ML/HR, TOLERATING WELL. PHILLIP CATH DRAINING BRIE URINE NOTED. RIGHT AND LEFT BESS DRAINS INTACT, BOTH WITH SEROSANGUINEOUS DRAIN NOTED. ABDOMINAL SURGICAL DRESSING INTACT. SAFETY MEASURES IN PLACE, SIDE RAILS UP X2, HOB ELEVATED, CALL LIGHT WITHIN REACH, BED LOCKED AND IN LOW POSITION, BED ALARM ON. CONTACT ISOLATION PRECAUTION MAINTAINED. WILL CONT TO MONITOR PATIENT CLOSELY.
--- NOTE | 2020-02-29 19:21 | NUR ---
END OF SHIFT NOTE: PT TRANSFERRED TO ICU OVERFLOW TO ROOM 102. PT GOT EXTUBATED AT 1509 WITHOUT DIFFICULTY. NASAL CANNULA 6L NOTED. PT ALERT OX3 AT THIS TIME. 1 UNIT OF PRBCS INFUSED PER MD ORDERS. PROTONIX GTT STARTED PER MD ORDERS. LEVOPHED GTT STOPPED AT 1240 PER PARAMETER ORDERS, NOT RESTARTED THIS SHIFT. ART LINE REMOVED PER MD ORDERS. RESTRAINTS OFF POST EXTUBATION, PT COOPERATIVE. PT CHECKED ON HOURLY AND PRN BY NURSING STAFF. OSTOMY OUTPUT = 750ML NG OUTPUT = 300ML PHILLIP TOTAL OUTPUT = 530 R BESS TOTAL OUTPUT = 170 L BESS TOTAL OUTPUT = 210
[2020-03-01] VITALS (13 sets, daily range): BP systolic 103–144; BP diastolic 50–74
--- NOTE | 2020-03-01 | NUR ---
RN NOTES FREQUENT ROUNDING DONE. PATIENT RESTING IN BED COMFORTABLY. NO ACUTE DISTRESS NOTED. WILL CONT TO MONITOR CLOSELY.
[2020-03-01] MEDS: BLOOD SUGAR DIAGNOSTIC 1 EACH STRIP IN SCH ×4 (00:02→18:26)
[2020-03-01] MEDS: INSULIN REGULAR, HUMAN 100 UNIT/ML 3 ML VIAL SQ PRN ×3 (00:05→12:26)
[2020-03-01] MEDS: HYDROCORTISONE SOD SUCCINATE 100 MG/2 ML VIAL IV SCH ×3 (00:49→21:13)
[2020-03-01] MEDS: PANTOPRAZOLE 80 MG in IV NS 0.9% 500 ML IV PRN (04:07)
[2020-03-01] MEDS: IV LR 1000 ML 1,000 ML IV PRN ×2 (04:11→22:39)
--- NOTE | 2020-03-01 06:45 | NUR ---
RN CLOSING NOTES PATIENT ICU OVERFLOW. PT STABLE THROUGHOUT SHIFT. PT IN BED AWAKE, A/OX2, ABLE TO MAKE NEEDS KNOWN VERBALLY. ON OXYGEN 6L VIA NASAL CANNULA, SATURATING 94% AT THE MOMENT. ON TELE MONITOR SR WITH HR 70'S. IV SITE SAPPHIRE PICC FLUSHING AND INTACT, PROTONIX DRIP RUNNING AT 50ML/HR AND LR RUNNING AT 70ML/HR, TOLERATING WELL. PHILLIP CATH DRAINING BRIE URINE NOTED. RIGHT AND LEFT BESS DRAINS INTACT, BOTH WITH SEROSANGUINEOUS DRAIN. ABDOMINAL SURGICAL DRESSING CHANGED AND INTACT. KEPT PT CLEAN, DRY, AND COMFORTABLE. SAFETY MEASURES AND CONTACT ISOLATION PRECAUTION MAINTAINED. WILL CONT TO MONITOR PATIENT CLOSELY. WILL ENDORSE TO AM RN FOR VENUS.
[2020-03-01 07:03] LABS: HEMATOCRIT 27 % (33-45); HEMOGLOBIN 8.8 g/dL (11.5-14.8); LYMPHOCYTES # (AUTO) 0.9 /CMM (0.8-4.8); MEAN CORPUSCULAR HGB CONC 33 g/dl (31.0-36.0); MEAN CORPUSCULAR VOLUME 89 fL (82-100); MONOCYTES # (AUTO) 0.8 /CMM (0.1-1.30); MONOCYTES % (AUTO) 5.8 % (2.0-12.0); NEUTROPHILS # (AUTO) 11.6 /CMM (1.8-8.9); NEUTROPHILS % (AUTO) 87.2 % (43.0-81.0); PLATELET COUNT (AUTO) 133 /CMM (150-450); RED BLOOD CELL COUNT(AUTO) 3.02 MIL/uL (4.0-5.2); WHITE BLOOD COUNT (AUTO) 13.3 K/uL (4.3-11.0)
[2020-03-01 07:18] LABS: CALCIUM, SERUM 7.3 mg/dL (8.5-10.1); CREATININE 1.2 mg/dL (0.6-1.3); MAGNESIUM 2.5 mg/dL (1.8-2.4); PHOSPHORUS 2.8 mg/dL (2.5-4.9); TOTAL PROTEIN, SERUM 4.8 g/dL (6.4-8.2)
[2020-03-01 07:19] LABS: ALBUMIN 1.3 g/dL (3.4-5.0)
--- NOTE | 2020-03-01 07:41 | NUR ---
RN opening notes: received pt resting in bed comfortably, no s/s of distress at this time. pt is A O x3, verbal and on bed rest, pt is on 6 L O2 via NC, Tele monitor showing SR 67 HR,iliostomy intact, bilateral BESS drains intact, surgical dressing on ABD intact,NG tube on Right Nare intact, SAPPHIRE PICC patent and intact infusing protonix drips at 50 ml/h. Safety measures have been implemented, call light Within rich, bed at the lowest position, side ralesx2 up, will continue to monitor for any changes.
[2020-03-01] MEDS ORDERED: HYDROCORTISONE SOD SUCCINATE 100 MG/2 ML VIAL IV SCH (08:00)
[2020-03-01] MEDS: MEROPENEM 1 G in IV NS 0.9% 100 ML IV SCH ×2 (08:58→21:10)
[2020-03-01] MEDS: VANCOMYCIN 1.25 GM in IV D5W 250 ML IV SCH (12:27)
--- NOTE | 2020-03-01 14:17 | NUR ---
RECEIVED ORDER FROM DR. RODRIGUEZ TO KEEP PATIENT NPO AND OBTAINED CONSENT FOR PEG TONIGHT.SHANNAN CHARGE NURSE NOTIFIED.
--- NOTE | 2020-03-01 14:24 | NUR ---
RN NOTES PATIENT TRANSFERRED TO ROOM 311-2, TRANSFER REPORT GIVEN TO CK GUZMAN FOR VENUS
--- NOTE | 2020-03-01 14:30 | NUR ---
model and pattern supervisor notes received patient from nelida. no s/s of distress at this time. patient oriented to room. pt is A O x2, pt is on 5 L O2 via NC, Tele monitor showing SR 67 HR, with ileostomy intact, bilateral BESS drains intact, surgical dressing on ABD intact,NG tube on Right Nare intact, SAPPHIRE PICC patent and intact infusing protonix drips at 50 ml/h. Safety measures have been implemented, call light Within rich, bed at the lowest position, side ralesx2 up, will continue to monitor for any changes.
--- NOTE | 2020-03-01 15:00 | NUR ---
telecom assistant notes orders noted to obtain consent for EGD also call received from previous charge nurse stephanie krause who spoke to Dr. Baumann who ordered to obtain consent for egd which will be done today at 6:00. called hot strip mill supervisor to confirm procedure which is EGD at 6:00 today. Obtained consent from patients daughter Julia. Will continue to monitor.
[2020-03-01] MEDS: FLUCONAZOLE IN NS,PREMIX 200 MG in PREMIX 1 EA IV SCH ×2 (17:19)
[2020-03-01] MEDS ORDERED: ANESTHESIA TRAY IN PYXIS 1 EA TRAY MC ONE (17:23)
--- NOTE | 2020-03-01 17:53 | NUR ---
television news producer notes Patient transferred to OR for EGD.
--- NOTE | 2020-03-01 18:45 | NUR ---
CRM SYSTEM ADMINISTRATOR NOTES PATIENT RETURNED FROM OR. PATIENTS NG TUBE WAS REMOVED BY MD. ORDERS TO KEEP NPO EXCEPT MEDICATIONS. PATIENT IN STABLE CONDITION. WILL CONTINUE TO MONITOR.
--- NOTE | 2020-03-01 18:59 | NUR ---
INDIVIDUAL SMALL GROUP INSTRUCTOR NOTES PATIENT IN BED RESTING NO SOB OR ACUTE DISTRESS NOTED. ALL DUE MEDICATIONS ADMINISTERED. ALL NEEDS MET. WILL ENDORSE CARE TO PM SHIFT.
--- NOTE | 2020-03-01 19:45 | NUR ---
COFOUNDER NOTES RECEIVED ON BED A/O X 3,BREATHING REGULAR,NOT IN ANY FORM OF DISTRESS,ABLE TO VERBALIZED NEEDS,NPO EXCEPT MEDS,S/P COLECTOMY ON 02/17,WITH BESS DRAINS RIGHT LEFT ABDOMEN DRAINING SANGUINOUS OUTPUT,RIGHT ILEOSTOMY DRAINS DARK GREEN OUTPUT.DVT PUMP IN USED FOR DVT PROPHYLAXIS.WITH RIGHT UPPER ARM PICC LINE FOR IV AND IV MEDS.CALL LIGHT IN REACH,NEEDS ANTICIPATED.
--- NOTE | 2020-03-02 | NUR ---
WINCH TRUCK OPERATOR NOTES ACCU-CHECK BLOOD SUGAR CHECK 195,COVERED WITH HUMULIN R 3 UNITS PER SLIDING SCALE.
[2020-03-02] MEDS: INSULIN REGULAR, HUMAN 100 UNIT/ML 3 ML VIAL SQ PRN ×4 (00:01→17:32)
[2020-03-02 00:25] VITALS: BP 130/70
[2020-03-02] MEDS: PANTOPRAZOLE 80 MG in IV NS 0.9% 500 ML IV PRN (01:36)
[2020-03-02 01:54] VITALS: BP 130/70
--- NOTE | 2020-03-02 03:00 | NUR ---
DYE HOUSE SUPERVISOR NOTES SLEEPING,KEPT WARM AND COMFORTABLE.
[2020-03-02 04:00] VITALS: BP_SYST 120; BP_SYST 135; BP_DIAS 71; BP_DIAS 73
--- NOTE | 2020-03-02 05:30 | NUR ---
MS RN NOTES ACCU-CHECK BLOOD SUGAR CHECK 204,COVERED WITH HUMULIN R 4 UNITS PER SLIDING SCALE.WITH IVF FLUIDS,NPO EXCEPT MEDS.
[2020-03-02] MEDS: BLOOD SUGAR DIAGNOSTIC 1 EACH STRIP IN SCH ×4 (06:15→17:31)
--- NOTE | 2020-03-02 06:26 | NUR ---
LEAD BURNER NOTES ON BED, A/O X2-3,SLEPT WITH INTERVAL.KEPT NPO EXCEPT MEDS.IVF INFUSING.PROTONIX DRIP IN PROGRESS AT 50ML/HR RATE VIA IV PUMP.BESS X 2 DRAING WELL WITH SANGUINOUS OUTPUT.IN NO ACUTE DISTRESS.WILL ENDORSE TO BINA GUZMAN FOR VENUS.
[2020-03-02 06:54] LABS: CALCIUM, SERUM 7.3 mg/dL (8.5-10.1); CREATININE 0.9 mg/dL (0.6-1.3); POTASSIUM 3.8 mmol/L (3.5-5.1)
--- NOTE | 2020-03-02 07:35 | NUR ---
PUNCHER OPENING NOTES RECEIVED PT IN BED, AWAKE, A/O X2-3. PT ON SUPPLEMENTARY OXYGEN AT 5LPM VIA NC, WITH NO ACUTE RESPIRATORY DISTRESS NOTED. ON TELEMONITORING SR HR 77. PT DENIES ANY PAIN OR DISCOMFORT AT THIS TIME. IVF 1/2 NS AT 70ML/HR TO SAPPHIRE PICC LINE, INTACT AND OPERATIONAL. ON GOING PROTONIX DRIP WELL TO SAPPHIRE PICC LINE. ILEOSTOMY PRESENT WITH DARK-COLORED OUTPUT NOTED. BILATERAL BESS DRAIN WITH SEROSANGUINEOUS OUTPUT PRESENT. PT KEPT COMFORTABLE AT THIS TIME. CALL LIGHT KEPT WITHIN REACH. PT'S BED IN LOWEST, LOCKED POSITION WITH SRX3. WILL CONTINUE PLAN OF CARE.
[2020-03-02 08:00] VITALS: BP 130/67
[2020-03-02] MEDS: MEROPENEM 1 G in IV NS 0.9% 100 ML IV SCH ×2 (08:35→20:02)
[2020-03-02] MEDS: HYDROCORTISONE SOD SUCCINATE 100 MG/2 ML VIAL IV SCH ×2 (08:35→22:46)
--- NOTE | 2020-03-02 09:30 | NUR ---
CUP SETTER LOCKSTITCH NOTES SEEN AND EVALUATED BY HOSPITALIST/ED, RN DID BEDSIDE SWALLOW EAVL. PT ABLE TO TOLERATE REGULAR WATER. MD ORDERED PT TO BE PLACED ON CLEAR LIQUIDS. PLACED AND CARRIED OUT. WILL CONTINUE TO MONITOR.
[2020-03-02] MEDS: ENOXAPARIN SODIUM 40 MG/0.4 ML DISP.SYRIN SQ SCH (09:51)
--- NOTE | 2020-03-02 09:58 | NUR ---
MS RN NOTES EMPTIED ILEOSTOMY WITH 210ML OUTPUT, WILL CONTINUE TO MONITOR.
[2020-03-02 10:13] LABS: BASOPHILS % (AUTO) 0.3 % (0.0-2.0); EOSINOPHILS % (AUTO) 0.1 % (0.0-6.0); HEMATOCRIT 28 % (33-45); LYMPHOCYTES # (AUTO) 0.8 /CMM (0.8-4.8); LYMPHOCYTES % (AUTO) 7.2 % (20.0-44.0); MEAN CORPUSCULAR HGB CONC 32 g/dl (31.0-36.0); MEAN CORPUSCULAR VOLUME 89 fL (82-100); MONOCYTES # (AUTO) 0.9 /CMM (0.1-1.30); NEUTROPHILS # (AUTO) 9.8 /CMM (1.8-8.9); NEUTROPHILS % (AUTO) 84.4 % (43.0-81.0); PLATELET COUNT (AUTO) 180 /CMM (150-450); RED BLOOD CELL COUNT(AUTO) 3.11 MIL/uL (4.0-5.2); WHITE BLOOD COUNT (AUTO) 11.6 K/uL (4.3-11.0)
[2020-03-02] MEDS: FLUCONAZOLE IN NS,PREMIX 200 MG in PREMIX 1 EA IV SCH ×2 (15:08)
[2020-03-02 16:00] VITALS: BP 137/72
--- NOTE | 2020-03-02 18:20 | NUR ---
MS RN NOTES EMPTIED ILEOSTOMY, OUTPUT OF 600ML- TOTAL OF 810ML. RIGHT BESS DRAIN, 100ML AND LEFT BESS DRAIN 120ML. BOTH BESS NEWSOME S SEROSANGUINEOUS OUTPUT. WILL ENDORSE TO INCOMING VEHICLE RETURN ASSOCIATE NURSE FOR VENUS.
--- NOTE | 2020-03-02 18:32 | NUR ---
MS RN NOTES LEFT BESS DRAIN, EPTIED ANOTHER 100ML, NOT TOTAL OF 220ML. WILL ENDORSED.
--- NOTE | 2020-03-02 18:36 | NUR ---
MS RN CLOSING NOTES PT REMAINS IN BED, AWAKE, A/O X2-3. PT ON SUPPLEMENTARY OXYGEN AT 4LPM VIA NC, WITH NO ACUTE RESPIRATORY DISTRESS NOTED. ON TELEMONITORING SR HR 7. PT DENIES ANY PAIN OR DISCOMFORT AT THIS TIME. SAPPHIRE TRIPLE LUMEN PICC, FLUSHED WITH NS, INTACT AND OPERATIONAL. ILEOSTOMY PRESENT WITH DARK-COLORED OUTPUT, TOTAL OF 810ML NOTED. BILATERAL BESS DRAIN WITH SEROSANGUINEOUS OUTPUT, 100ML ON THE RIGHT AND 220ML TOTAL ON TO THE LEFT. FC IN PLACE WITH YELLOW/BRIE COLORED URINE WITH 950ML OUTPUT. PT KEPT COMFORTABLE. ALL NEEDS AND CARE ATTENDED AND PROVIDED. CALL LIGHT KEPT WITHIN REACH. PT'S BED IN LOWEST, LOCKED POSITION WITH SRX3. WILL ENDORSE TO INCOMING NIGHT NURSE FOR VENUS.
--- NOTE | 2020-03-02 19:39 | NUR ---
MS RN OPENING NOTES PATIENT AWAKE AND WATCHING TV IN BED. A/OX3. ON 4L NC. PATIENT DENIES SOB OR PAIN AT THIS TIME. PICC LINE PRESENT ON RIGHT UPPER ARM, INTACT & PATENT, HEP LOCKED. BESS DRAINS PRESENT, BOTH INTACT & PATENT WITH SEROSANGUINEOUS FLUID PRESENT. ILEOSTOMY PRESENT WITH 600 ML OF DARK LIQUID STOOL PRESENT. PHILLIP CATH PRESENT AND DRAINING WILL WITH 170 ML OF CLEAR YELLOW URINE PRESENT. SAFETY MEASURES IN PLACE AND PATIENT'S NEEDS MET. BED LOCKED, ALARM ON, SIDE RAILS X2, CALL LIGHT WITHIN REACH. WILL CONTINUE TO MONITOR.
[2020-03-02 20:00] VITALS: BP 154/76
[2020-03-03] MEDS: BLOOD SUGAR DIAGNOSTIC 1 EACH STRIP IN SCH ×5 (00:28→23:34)
[2020-03-03] MEDS: INSULIN REGULAR, HUMAN 100 UNIT/ML 3 ML VIAL SQ PRN ×5 (00:33→23:34)
[2020-03-03 07:03] LABS: BASOPHILS % (AUTO) 0.1 % (0.0-2.0); HEMATOCRIT 29 % (33-45); HEMOGLOBIN 9.6 g/dL (11.5-14.8); LYMPHOCYTES # (AUTO) 0.8 /CMM (0.8-4.8); LYMPHOCYTES % (AUTO) 5.9 % (20.0-44.0); MEAN CORPUSCULAR HGB CONC 33 g/dl (31.0-36.0); MEAN CORPUSCULAR VOLUME 89 fL (82-100); MONOCYTES # (AUTO) 0.8 /CMM (0.1-1.30); NEUTROPHILS # (AUTO) 11.6 /CMM (1.8-8.9); PLATELET COUNT (AUTO) 279 /CMM (150-450); RED BLOOD CELL COUNT(AUTO) 3.31 MIL/uL (4.0-5.2); WHITE BLOOD COUNT (AUTO) 13.2 K/uL (4.3-11.0)
[2020-03-03 07:11] LABS: BILIRUBIN,TOTAL 0.6 mg/dL (0.2-1.0); CALCIUM, SERUM 7.6 mg/dL (8.5-10.1); MAGNESIUM 2.1 mg/dL (1.8-2.4); PHOSPHORUS 2.2 mg/dL (2.5-4.9); POTASSIUM 3.8 mmol/L (3.5-5.1); TOTAL PROTEIN, SERUM 5.2 g/dL (6.4-8.2)
[2020-03-03 07:15] LABS: ALBUMIN 1.4 g/dL (3.4-5.0)
[2020-03-03] MEDS ORDERED: PANTOPRAZOLE 40 MG TABLET.DR PO SCH (07:30)
--- NOTE | 2020-03-03 07:30 | NUR ---
MS/RN Opening note Patient received from production supervisor off shift. A/O X2-3, vital sins stable, no fevers noted, denies pain. Dressing to abdomen clean and dry, no drainage noted. Ileostomy to right side of lower abdomen with minimal output, two BESS drains noted left side with 10ml output, right with 80ml output. Triple lumen catheter to right upper arm, all ports flushed. Safety measurs in place, bed in lowsetting, side rails X3 in upright position. Call light within reach, will continue to monitor and ensure safety.
--- NOTE | 2020-03-03 07:51 | NUR ---
PRINTED CIRCUIT BOARD ASSEMBLY REPAIRER CLOSING NOTES PATIENT AWAKE IN BED. A/OX3. ON 4L NC. PATIENT DENIES SOB OR PAIN AT THIS TIME. PICC LINE PRESENT ON RIGHT UPPER ARM, INTACT & PATENT, HEP LOCKED. BESS DRAINS PRESENT, BOTH INTACT & PATENT WITH SEROSANGUINEOUS FLUID PRESENT; LEFT BSES DRAIN: 120 CC AND RIGHT BESS DRAIN: 80 CC. PHILLIP CATH PRESENT AND DRAINING WILL WITH 800 CC OF CLEAR YELLOW URINE DRAINED. SAFETY MEASURES IN PLACE AND PATIENT'S NEEDS MET. BED LOCKED, ALARM ON, SIDE RAILS X2, CALL LIGHT WITHIN REACH. WILL ENDORSE TO DAY SHIFT NURSE PLAN OF CARE.
[2020-03-03 08:00] VITALS: BP 157/78
[2020-03-03 08:27] LABS: BAND % (MANUAL) 1 % (0.0-5.0); LYMPHOCYTES % (MANUAL) 5 % (16-48); METAMYELOCYTES % 2 % (0-0); NEUTROPHILS % (MANUAL) 86 (42-76); REACTIVE LYMPHOCYTES 6 % (0-0)
[2020-03-03] MEDS: MEROPENEM 1 G in IV NS 0.9% 100 ML IV SCH ×2 (08:39→20:46)
[2020-03-03] MEDS: HYDROCORTISONE SOD SUCCINATE 100 MG/2 ML VIAL IV SCH ×2 (08:40→20:46)
--- NOTE | 2020-03-03 08:45 | NUR ---
MS/RN Drainage 80ml drainage from right drain.
[2020-03-03] MEDS: ENOXAPARIN SODIUM 40 MG/0.4 ML DISP.SYRIN SQ SCH (08:52)
--- NOTE | 2020-03-03 08:59 | NUR ---
MS/RN Medications Morning medications administered as ordered.
--- NOTE | 2020-03-03 10:35 | NUR ---
MS/RN S/B Dr Wasserman Seen by MD - consider transfer to acute rehab once medically stable. Continue with IVAB.
[2020-03-03] MEDS ORDERED: NEUTRA PHOS 1 POWD.PACKET PO ONE (11:30)
[2020-03-03] MEDS: PANTOPRAZOLE 40 MG TABLET.DR PO SCH ×2 (12:30→17:26)
[2020-03-03] MEDS: CLARITHROMYCIN 500 MG TABLET PO SCH ×2 (12:37→20:46)
[2020-03-03] MEDS: AMOXICILLIN TRIHYDRATE 250 MG CAPSULE PO SCH ×2 (12:38→17:26)
--- NOTE | 2020-03-03 12:38 | NUR ---
MS/RN Protonix Protonix medication changed from granules to pill form. Lunchtime dose held as morning dose already administered.
--- NOTE | 2020-03-03 14:50 | NUR ---
MS/[employer] global product leadership reconciliation Dr Wasserman notified regarding medication reconciliation needed to be completed.
[2020-03-03 16:00] VITALS: BP 152/75
--- NOTE | 2020-03-03 16:45 | NUR ---
MS/RN S/B Dr Morfin Seen by MD - dressing changed.
--- NOTE | 2020-03-03 18:00 | NUR ---
MS/RN Drainage Ileostomy - 630ml Left BESS - 320ml Right BESS - 160ml
--- NOTE | 2020-03-03 18:35 | NUR ---
MS/RN End note Paatient remains in stable condition. Dressings clean adn dry, drain output documented in nursing notes. Ileostomy working well, stool remains liquid. Denies any pain or discomfort. No needs at this time, will endorse to weight shifter.
--- NOTE | 2020-03-03 19:55 | NUR ---
MS RN OPENING NOTES RECEIVED PATIENT FROM MORNING SHIFT, ALERT AND ORIENTED X 3. VERBALLY RESPONSIVE AND ABLE TO FOLLOW DIRECTIONS. BREATHING REGULAR AND UNLABORED ON OXYGEN AT 2L/MIN VIA NASAL CANNULA. RIGHT UPPER ARM PICC LINE INTACT AND PATENT, FLUSHING WELL WITH NO BLEEDING OR S/S OF INFILTRATION NOTED. ILEOSTOMY INTACT WITH MODERATE GREEN TO BLACKISH WATERY OUTPUT. BILATERAL LIZZ GONCALVES PATENT DRAINING MODERATE SEROSANGUINEOUS OUTPUT. PHILLIP CATH DRAINING WELL WITH CLEAR YELLOW URINE. DENIES SUICIDAL/HOMICIDAL IDEATION. NO COMPLAINTS OF PAIN/DISCOMFORT REPORTED AT THIS TIME. BED LOW AND LOCKED ON SEMI FOWLERS POSITION. CALL LIGHT IN REACH. WILL CONTINUE TO MONITOR.
[2020-03-03 20:00] VITALS: BP 145/78
[2020-03-03 20:19] VITALS: BP 145/78
--- NOTE | 2020-03-04 | NUR ---
MS RN NOTES BS 232mg/dl, 4UNITS REGULAR INSULIN GIVEN SQ. CLEAR LIQUIDS PROVIDED ON BEDSIDE. WILL CONTINUE TO MONITOR.
[2020-03-04] MEDS: BLOOD SUGAR DIAGNOSTIC 1 EACH STRIP IN SCH ×4 (05:50→23:44)
[2020-03-04] MEDS: INSULIN REGULAR, HUMAN 100 UNIT/ML 3 ML VIAL SQ PRN ×2 (05:51→23:45)
--- NOTE | 2020-03-04 06:40 | NUR ---
MS RN CLOSING NOTES PATIENT IN BED ALERT AND ORIENTED X 3. AFEBRILE WITH NO S/S OF DISTRESS OBSERVED. RIGHT UPPER ARM PICC LINE PATENT AND FLUSHING WELL. ILEOSTOMY BAG CHANGED. BILATERAL LIZZ GONCALVES PATENT DRAINING SEROSANGUINEOUS 125cc OUTPUT. PHILLIP CATH DRAINING WELL WITH CLEAR YELLOW URINE 750cc OUTPUT. NO COMPLAINTS OF PAIN/DISCOMFORT REPORTED THE WHOLE SHIFT. BED LOW AND LOCKED ON SEMI FOWLERS POSITION. CALL LIGHT IN REACH. WILL ENDORSE TO MORNING SHIFT FOR VENUS.
[2020-03-04 08:00] VITALS: BP 150/74
[2020-03-04 08:07] LABS: EOSINOPHILS % (AUTO) 0.9 % (0.0-6.0); HEMATOCRIT 31 % (33-45); HEMOGLOBIN 10.1 g/dL (11.5-14.8); LYMPHOCYTES # (AUTO) 0.9 /CMM (0.8-4.8); LYMPHOCYTES % (AUTO) 7.4 % (20.0-44.0); MEAN CORPUSCULAR HGB CONC 33 g/dl (31.0-36.0); MEAN CORPUSCULAR VOLUME 89 fL (82-100); MONOCYTES # (AUTO) 0.7 /CMM (0.1-1.30); MONOCYTES % (AUTO) 5.6 % (2.0-12.0); NEUTROPHILS % (AUTO) 86.1 % (43.0-81.0); PLATELET COUNT (AUTO) 308 /CMM (150-450); RED BLOOD CELL COUNT(AUTO) 3.44 MIL/uL (4.0-5.2); WHITE BLOOD COUNT (AUTO) 12.8 K/uL (4.3-11.0)
[2020-03-04 08:28] LABS: CALCIUM, SERUM 7.4 mg/dL (8.5-10.1); CREATININE 0.9 mg/dL (0.6-1.3)
[2020-03-04] MEDS: CLARITHROMYCIN 500 MG TABLET PO SCH ×2 (09:00→20:40)
[2020-03-04] MEDS: PANTOPRAZOLE 40 MG TABLET.DR PO SCH ×2 (09:00→17:00)
[2020-03-04] MEDS: ENOXAPARIN SODIUM 40 MG/0.4 ML DISP.SYRIN SQ SCH (09:00)
[2020-03-04] MEDS: HYDROCORTISONE SOD SUCCINATE 100 MG/2 ML VIAL IV SCH ×2 (09:00→20:40)
[2020-03-04] MEDS: AMOXICILLIN TRIHYDRATE 250 MG CAPSULE PO SCH ×2 (09:00→17:00)
[2020-03-04] MEDS: MEROPENEM 1 G in IV NS 0.9% 100 ML IV SCH ×2 (09:00→20:40)
--- NOTE | 2020-03-04 10:51 | NUR ---
PATIENT IN BED RESTING. AM MEDICATION AND AM CARE GIVE. RIGHT DRAIN 100ML. LEFT DRAIN 50ML. PT CAME BY AND PATIENT WAS MAX ASSIST FOR GETTING OUT OF BED AND AMBULATION. HE NEL RETURN TOMORROW. BED IN LOWEST POSITION. CALL LIGHT IN REACH. ALL NEEDS MET. WILL CONTINUE TO MONITOR PATIENT THROUGHOUT SHIFT.
[2020-03-04] MEDS ORDERED: NEUTRA PHOS 1 POWD.PACKET NG ONE (11:30)
--- NOTE | 2020-03-04 11:51 | NUR ---
PHILLIP OUT. URINE SPECIMEN OBTAIN. LAB NOTIFIED FOR CAFETERIA ATTENDANT.
[2020-03-04 16:00] VITALS: BP 143/71
--- NOTE | 2020-03-04 18:18 | NUR ---
NO INSULIN. PHARMACY IS SUPPOSE TO BRING MORE.
--- NOTE | 2020-03-04 18:52 | NUR ---
PATIENT IN BED RESTING. NO SIGNS AND SYMPTOMS OF PAIN OR DISTRESS. BED IN LOW POSITION. CALL LIGHT IN REACH. ALL NEEDS MET. WILL GIVE REPORT TO NIGHT NURSE.
--- NOTE | 2020-03-04 19:30 | NUR ---
MS RN OPENING NOTES RECEIVED PATIENT FROM MORNING SHIFT, ALERT AND ORIENTED X 3. VERBALLY RESPONSIVE AND ABLE TO FOLLOW DIRECTIONS. BREATHING REGULAR AND UNLABORED ON OXYGEN AT 2L/MIN VIA NASAL CANNULA. RIGHT UPPER ARM PICC LINE INTACT AND PATENT, FLUSHING WELL WITH NO BLEEDING OR S/S OF INFILTRATION NOTED. ILEOSTOMY INTACT WITH MODERATE GREEN TO BLACKISH WATERY OUTPUT. BILATERAL LIZZ GONCALVES PATENT DRAINING MODERATE SEROSANGUINEOUS OUTPUT. DENIES SUICIDAL/HOMICIDAL IDEATION. NO COMPLAINTS OF PAIN/DISCOMFORT REPORTED AT THIS TIME. BED LOW AND LOCKED ON SEMI FOWLERS POSITION. CALL LIGHT IN REACH. WILL CONTINUE TO MONITOR.
[2020-03-04 20:00] VITALS: BP 150/70
--- NOTE | 2020-03-05 | NUR ---
MS RN NOTES BS 298mg/dl, 6UNITS REGULAR INSULIN GIVEN SQ. CLEAR LIQUIDS PROVIDED ON BEDSIDE. WILL CONTINUE TO MONITOR.
--- NOTE | 2020-03-05 05:30 | NUR ---
MS RN NOTES INCISION CARE PROVIDED, DRAINS EMPTIED. NO COMPLAINTS OF PAIN/DISCOMFORT REPORTED. WILL CONTINUE TO MONITOR.
[2020-03-05] MEDS: BLOOD SUGAR DIAGNOSTIC 1 EACH STRIP IN SCH (05:47)
[2020-03-05] MEDS: INSULIN REGULAR, HUMAN 100 UNIT/ML 3 ML VIAL SQ PRN ×3 (05:48→18:45)
--- NOTE | 2020-03-05 06:20 | NUR ---
MS RN CLOSING NOTES PATIENT IN BED ALERT AND ORIENTED X 3. AFEBRILE WITH NO S/S OF DISTRESS OBSERVED. RIGHT UPPER ARM PICC LINE PATENT AND FLUSHING WELL. ILEOSTOMY BAG CHANGED. BILATERAL LIZZ GONCALVES PATENT DRAINING SEROSANGUINEOUS 250cc OUTPUT. NO COMPLAINTS OF PAIN/DISCOMFORT REPORTED THE WHOLE SHIFT. BED LOW AND LOCKED ON SEMI FOWLERS POSITION. CALL LIGHT IN REACH. WILL ENDORSE TO MORNING SHIFT FOR VENUS.
[2020-03-05 07:14] LABS: BASOPHILS % (AUTO) 0.2 % (0.0-2.0); EOSINOPHILS % (AUTO) 0.1 % (0.0-6.0); HEMATOCRIT 31 % (33-45); HEMOGLOBIN 10.1 g/dL (11.5-14.8); LYMPHOCYTES # (AUTO) 0.8 /CMM (0.8-4.8); LYMPHOCYTES % (AUTO) 7.2 % (20.0-44.0); MEAN CORPUSCULAR HGB CONC 33 g/dl (31.0-36.0); MEAN CORPUSCULAR VOLUME 89 fL (82-100); MONOCYTES # (AUTO) 0.6 /CMM (0.1-1.30); MONOCYTES % (AUTO) 5.1 % (2.0-12.0); NEUTROPHILS # (AUTO) 10.2 /CMM (1.8-8.9); NEUTROPHILS % (AUTO) 87.4 % (43.0-81.0); PLATELET COUNT (AUTO) 379 /CMM (150-450); RED BLOOD CELL COUNT(AUTO) 3.47 MIL/uL (4.0-5.2); WHITE BLOOD COUNT (AUTO) 11.7 K/uL (4.3-11.0)
[2020-03-05 07:25] LABS: CALCIUM, SERUM 7.6 mg/dL (8.5-10.1); CREATININE 0.9 mg/dL (0.6-1.3); MAGNESIUM 1.9 mg/dL (1.8-2.4); PHOSPHORUS 2.2 mg/dL (2.5-4.9); POTASSIUM 3.7 mmol/L (3.5-5.1)
--- NOTE | 2020-03-05 07:30 | NUR ---
ms rn received on bed, awake,alert,oriented x3,not in any form of distress, respirations even and unlabored,no sob noted, s/p abd surgery, bilateral ugo drain noted, right drain, bloody and left yellowish drainage.
[2020-03-05 08:00] VITALS: BP 164/93
--- NOTE | 2020-03-05 09:00 | NUR ---
ms isaac breakfast served,due meds given,tolerated well.
[2020-03-05] MEDS ORDERED: DEXTROSE 50%-WATER 50 ML DISP.SYRIN IV PRN (09:30)
[2020-03-05] MEDS: AMOXICILLIN TRIHYDRATE 250 MG CAPSULE PO SCH ×2 (10:04→18:31)
[2020-03-05] MEDS: HYDROCORTISONE SOD SUCCINATE 100 MG/2 ML VIAL IV SCH ×2 (10:04→20:10)
[2020-03-05] MEDS: PANTOPRAZOLE 40 MG TABLET.DR PO SCH ×2 (10:04→18:31)
[2020-03-05] MEDS: CLARITHROMYCIN 500 MG TABLET PO SCH ×2 (10:05→20:10)
[2020-03-05] MEDS: VALSARTAN 80 MG TABLET PO SCH (10:05)
[2020-03-05] MEDS: ENOXAPARIN SODIUM 40 MG/0.4 ML DISP.SYRIN SQ SCH (10:08)
[2020-03-05] MEDS: MEROPENEM 1 G in IV NS 0.9% 100 ML IV SCH ×2 (10:42→20:09)
--- NOTE | 2020-03-05 11:00 | NUR ---
ms rn colostomy changed w/ waterry stool.
[2020-03-05] MEDS ORDERED: K PHOS NEUTRAL 250 MG TABLET PO ONE (12:00)
[2020-03-05] MEDS: BLOOD SUGAR DIAGNOSTIC 1 EACH STRIP VI SCH ×3 (12:08→21:14)
--- NOTE | 2020-03-05 12:30 | NUR ---
ms rn was seen by lucina williamson w/ orders made and carried out.
[2020-03-05 16:00] VITALS: BP 132/73
--- NOTE | 2020-03-05 18:00 | NUR ---
ms rn on bed, dressing to abdomen changed w/ manpreet on.denies pain,all needs attended.
--- NOTE | 2020-03-05 19:46 | NUR ---
RN OPEN NOTES RECEIVED REPORT ON PATIENT. PATIENT IS LAYING IN BED WATCHING TV. CALL LIGHT IS WITHIN REACH. NO COMPLAINTS OF PAIN AT THIS TIME. BED IS IN LOWEST LOCKED POSITION WITH SIDE RAILS UP, SEMI FOWLERS. NO SOB/ ACUTE RESPIRATORY DISTRESS NOTED. WILL CONTINUE TO MONITOR.
[2020-03-05 20:00] VITALS: BP 149/77
[2020-03-05] MEDS: *INSULIN REGULAR(HUMULIN R)HUM 100 UNIT/ML VIAL SQ PRN (21:23)
[2020-03-06] MEDS: IV NS 0.9% 250 ML IV PRN (03:58)
[2020-03-06] MEDS: BLOOD SUGAR DIAGNOSTIC 1 EACH STRIP VI SCH (06:19)
[2020-03-06] MEDS: *INSULIN REGULAR(HUMULIN R)HUM 100 UNIT/ML VIAL SQ PRN ×2 (06:21→22:10)
--- NOTE | 2020-03-06 06:57 | NUR ---
RN CLOSE NOTES PATIENT IS LAYING IN BED. BED IS IN LOWEST LOCKED POSITION WITH SIDE RAILS UP X2, SEMI FOWLERS. ILEOSTOMY BAG/ RIGHT AND LEFT BESS DRAINS EMPTIED. SAPPHIRE PICC LINE IS FLUSHABLE. CALL LIGHT IS WITHIN REACH. ON 2L NASAL CANULA, NO SOB/ ACUTE RESPIRATORY DISTRESS NOTED. WILL ENDORSE TO AM NURSE.
[2020-03-06 08:00] VITALS: BP 150/75
--- NOTE | 2020-03-06 08:00 | NUR ---
MS RN OPENING NOTES RECEIVED PATIENT IN BED AWAKE ALERT AND ORIENTED X 2. ENGLISH/ALBANIAN SPEAKING BUT MOSTLY ENGLISH. NO CARDIAC OR RESP DISTRESS NOTED. ON O2 AT 2L/MIN VIA NASAL CANULA SATURATING AT 96%. NO COMPLAINTS OF PAIN OR DISCOMFORT. PT IS AFEBRILE. IV ACCESS NOTED ON R UPPER ARM. INTACT AND PATENT AND FLUSHING WELL. NO S/S OF INFECTION OR INFILTRATION NOTED. PT ALSO NOTED WITH AN ILEOSTOMY BAG, DRAINING WITH STOOL. LIZZ GONCALVES DRAIN NOTED ON R AND L FLANK. L BESS DRAIN NOTED WITH YELLOW SEROSANGUINEOUS FLUID. R BESS DRAIN DRAINING WITH RED TINGED FLUID. SAFETY PRECAUTIONS IN PLACE, BED LOW AND LOCKED ON SEMI FOWLERS POSITION. CALL LIGHT IN REACH. SIDE RAILS UP. BED ALARM ON.
[2020-03-06 08:09] LABS: BASOPHILS % (AUTO) 0.1 % (0.0-2.0); EOSINOPHILS % (AUTO) 0.1 % (0.0-6.0); HEMATOCRIT 30 % (33-45); HEMOGLOBIN 9.8 g/dL (11.5-14.8); LYMPHOCYTES % (AUTO) 6.7 % (20.0-44.0); MEAN CORPUSCULAR HGB CONC 33 g/dl (31.0-36.0); MEAN CORPUSCULAR VOLUME 89 fL (82-100); MONOCYTES # (AUTO) 0.7 /CMM (0.1-1.30); MONOCYTES % (AUTO) 4.4 % (2.0-12.0); NEUTROPHILS # (AUTO) 13.5 /CMM (1.8-8.9); NEUTROPHILS % (AUTO) 88.7 % (43.0-81.0); PLATELET COUNT (AUTO) 373 /CMM (150-450); RED BLOOD CELL COUNT(AUTO) 3.39 MIL/uL (4.0-5.2); WHITE BLOOD COUNT (AUTO) 15.2 K/uL (4.3-11.0)
[2020-03-06 08:31] LABS: CALCIUM, SERUM 7.4 mg/dL (8.5-10.1); CREATININE 0.9 mg/dL (0.6-1.3); MAGNESIUM 1.7 mg/dL (1.8-2.4); PHOSPHORUS 2.3 mg/dL (2.5-4.9); POTASSIUM 3.7 mmol/L (3.5-5.1)
[2020-03-06] MEDS: CLARITHROMYCIN 500 MG TABLET PO SCH ×2 (08:39→21:24)
[2020-03-06] MEDS: VALSARTAN 80 MG TABLET PO SCH (08:39)
[2020-03-06] MEDS: HYDROCORTISONE SOD SUCCINATE 100 MG/2 ML VIAL IV SCH (08:39)
[2020-03-06] MEDS: PANTOPRAZOLE 40 MG TABLET.DR PO SCH ×2 (08:40→16:13)
[2020-03-06] MEDS: ENOXAPARIN SODIUM 40 MG/0.4 ML DISP.SYRIN SQ SCH (08:40)
[2020-03-06] MEDS: MEROPENEM 1 G in IV NS 0.9% 100 ML IV SCH ×2 (08:42→21:24)
[2020-03-06] MEDS: AMOXICILLIN TRIHYDRATE 250 MG CAPSULE PO SCH ×2 (08:43→16:13)
[2020-03-06] MEDS ORDERED: DEXTROSE 50%-WATER 50 ML DISP.SYRIN IV PRN (09:30)
[2020-03-06] MEDS ORDERED: POTASSIUM PHOSPHATE MM 15 MMOL in IV NS 0.9% 250 ML IV SCH (10:30)
[2020-03-06] MEDS ORDERED: MAGN400O6 PO (10:50)
[2020-03-06] MEDS ORDERED: INSU100V28 SQ (10:50)
[2020-03-06] MEDS ORDERED: Hydrocortisone Sod Succinate IV (10:50)
[2020-03-06] MEDS ORDERED: PANT40TA2 PO (10:50)
[2020-03-06] MEDS ORDERED: ALLA266C2 TP (10:50)
[2020-03-06] MEDS ORDERED: AMLO10TA7 PO (10:50)
[2020-03-06] MEDS ORDERED: ENOX40DI SQ (10:50)
[2020-03-06] MEDS ORDERED: VALS80TA2 PO (10:50)
[2020-03-06] MEDS ORDERED: *INS REG3 SQ (10:50)
[2020-03-06] MEDS ORDERED: ACET650S11 RC (10:50)
[2020-03-06] MEDS: Magnesium 1GM/D5W 100ML PREMIX 100 ML IV SCH ×2 (10:56→11:39)
[2020-03-06] MEDS: AMLODIPINE BESYLATE 10 MG TABLET PO SCH (10:57)
[2020-03-06] MEDS ORDERED: AMOX250C PO (11:11)
[2020-03-06] MEDS ORDERED: CLAR-45 PO (11:11)
[2020-03-06] MEDS: BLOOD SUGAR DIAGNOSTIC 1 EACH STRIP IN SCH ×3 (11:30→21:25)
[2020-03-06] MEDS: INSULIN REGULAR, HUMAN 100 UNIT/ML 3 ML VIAL SQ PRN (11:32)
[2020-03-06] MEDS ORDERED: DIATR MEGLU/DIATRIZOATE SODIUM 30 ML BOTTLE (GASTROGRAPHIN) ONE (13:44)
[2020-03-06] MEDS ORDERED: IOHEXOL-300 100 ML VIAL IV ONE (15:48)
[2020-03-06] MEDS ORDERED: IV NS 0.9% 250 ML IV ONE (15:48)
[2020-03-06] MEDS ORDERED: CT SWABBABLE VALVE TRANS SET 1 EA INFUS.SET MC ONE (15:48)
[2020-03-06 16:00] VITALS: BP 141/66
--- NOTE | 2020-03-06 19:33 | NUR ---
MS RN CLOSING NOTES PATIENT IN BED AWAKE ALERT AND ORIENTED X 2. SAMI/MAORI SPEAKING BUT MOSTLY SAMI. NO CARDIAC OR RESP DISTRESS NOTED. ON O2 AT 2L/MIN VIA NASAL CANULA SATURATING AT 96%. NO COMPLAINTS OF PAIN OR DISCOMFORT. PT IS AFEBRILE. IV ACCESS NOTED ON R UPPER ARM. INTACT AND PATENT AND FLUSHING WELL. NO S/S OF INFECTION OR INFILTRATION NOTED. PT POTASSIUM AND K-PHOS REPLACED TODAY. PT ALSO NOTED WITH AN ILEOSTOMY BAG, DRAINING WITH STOOL. LIZZ GONCALVES DRAIN NOTED ON R AND L FLANK. L BESS DRAIN NOTED WITH YELLOW SEROSANGUINEOUS FLUID. R BESS DRAIN DRAINING WITH RED TINGED FLUID. DRESSING CHANGED ON ABD INCISION AND R AND L FLANK BESS DRAIN. SAFETY PRECAUTIONS IN PLACE, BED LOW AND LOCKED ON SEMI FOWLERS POSITION. CALL LIGHT IN REACH. SIDE RAILS UP. BED ALARM ON.
[2020-03-06 20:00] VITALS: BP 131/62
[2020-03-06 20:15] LABS: APPEARANCE,URINE CLEAR (CLEAR); BILIRUBIN,URINE NEGATIVE (NEGATIVE); BLOOD, URINE TRACE-INTA Ery/uL (NEGATIVE); COLOR,URINE YELLOW (YELLOW); KETONES,URINE NEGATIVE (NEGATIVE); LEUKOCYTE ESTERASE ,URINE NEGATIVE (NEGATIVE); NITRITE, URINE NEGATIVE (NEGATIVE); PH,URINE 6.5 (5.0-8.0); PROTEIN,URINE TRACE mg/dl (NEGATIVE); UGLUCOSE >=1000 mg/dL (NEGATIVE); UROBILINOGEN,URINE 0.2 EU/dL (0.2)
[2020-03-06 20:30] LABS: BACTERIA,URINE Rare /HPF (None Seen)
[2020-03-06 20:31] LABS: SQUAMOUS EPITHELIAL CELL,UR Few /HPF (None Seen)
--- NOTE | 2020-03-06 20:40 | NUR ---
MS RN NOTE TRANSFER CARE TO MARGI GUZMAN.
[2020-03-06] MEDS ORDERED: HYDROCORTISONE SOD SUCCINATE 100 MG/2 ML VIAL IV SCH (21:00)
--- NOTE | 2020-03-06 21:30 | NUR ---
MS RN OPENING NOTE RECEIVED PATIENT IN BED. A/OX 2-3. ON OXYGEN 2L/MIN VIA NASAL CANNULA. RESPIRATIONS ARE EVEN AND UNLABORED. NO S/S SOB NOTED. NO C/O PAIN AT THIS TIME. IN NO APPARENT DISTRESS. IV ACCESS IN PICC LINE TRIPLE LUMEN PATENT AND RUNNING TKO. PATIENT HAS AN ILEOSTOMY, WELL BILATERAL FLANK BESS DRAINS. PHILLIP CATHETER IS PRESENT, DRAINING TO GRAVITY. BED IS LOW AND LOCKED, HOB ELEVATED IN HIGH FOWLERS, SIDE RIALS UP X2, CALL LIGHT WITHIN REACH. WILL CONTINUE TO MONITOR.
[2020-03-07] MEDS: BLOOD SUGAR DIAGNOSTIC 1 EACH STRIP IN SCH ×4 (05:58→22:00)
[2020-03-07] MEDS: INSULIN REGULAR, HUMAN 100 UNIT/ML 3 ML VIAL SQ PRN ×3 (05:59→18:06)
--- NOTE | 2020-03-07 06:00 | NUR ---
MS GUZMAN NOTES R BESS = 10 ML L BESS = 60 ML
[2020-03-07 06:53] LABS: BASOPHILS % (AUTO) 0.1 % (0.0-2.0); EOSINOPHILS % (AUTO) 0.2 % (0.0-6.0); HEMATOCRIT 30 % (33-45); HEMOGLOBIN 9.6 g/dL (11.5-14.8); LYMPHOCYTES # (AUTO) 1.1 /CMM (0.8-4.8); LYMPHOCYTES % (AUTO) 5.7 % (20.0-44.0); MEAN CORPUSCULAR HGB CONC 33 g/dl (31.0-36.0); MEAN CORPUSCULAR VOLUME 89 fL (82-100); MONOCYTES # (AUTO) 0.8 /CMM (0.1-1.30); MONOCYTES % (AUTO) 3.9 % (2.0-12.0); NEUTROPHILS # (AUTO) 17.6 /CMM (1.8-8.9); NEUTROPHILS % (AUTO) 90.1 % (43.0-81.0); PLATELET COUNT (AUTO) 382 /CMM (150-450); RED BLOOD CELL COUNT(AUTO) 3.35 MIL/uL (4.0-5.2); WHITE BLOOD COUNT (AUTO) 19.6 K/uL (4.3-11.0)
--- NOTE | 2020-03-07 06:56 | NUR ---
MS RN NOTES AWAKE & RESPONSIVE. NOT IN ANY DISTRESS. NO SOB NOTED. DENIES ANY PAIN OR DISCOMFORT AT THIS TIME. WITH TLC PICC LINE PATENT & INTACT. AM CARE DONE. MONITORED ACCORDINGLY. CALL LIGHT WITHIN REACH. BED IN LOWEST POSITION. SR UP X 3 WITH BED ALARM ON FOR SAFETY. WILL ENDORSE TO NEXT SHIFT.
[2020-03-07 07:19] LABS: BILIRUBIN,DIRECT 0.2 mg/dL (0.0-0.2); BILIRUBIN,TOTAL 0.5 mg/dL (0.2-1.0)
--- NOTE | 2020-03-07 07:20 | NUR ---
MS RN NOTES PATIENT IN BED ALERT ORIENTED X 2-3. NO ACUTE DISTRESS NOTED. BREATHING UNLABORED. IV ACCESS PATENT AND INTACT, NO REDNESS OR SWELLING NOTED.BILATERAL BESS DRAIN INTACT WITH SEROSANGUINEOUS OUTPUT. ABDOMINAL DRESSING CLEAN DRY AND INTACT. SAFETY MEASURES IN PLACE. CALL LIGHT WITHIN REACH. WILL CONTINUE TO MONITOR ACCORDINGLY.
[2020-03-07 07:28] LABS: ALBUMIN 1.4 g/dL (3.4-5.0)
[2020-03-07 07:40] LABS: CALCIUM, SERUM 7.5 mg/dL (8.5-10.1); CREATININE 0.8 mg/dL (0.6-1.3); MAGNESIUM 1.9 mg/dL (1.8-2.4); POTASSIUM 3.9 mmol/L (3.5-5.1)
[2020-03-07 08:00] VITALS: BP 157/77
[2020-03-07] MEDS: AMLODIPINE BESYLATE 10 MG TABLET PO SCH (08:53)
[2020-03-07] MEDS: CLARITHROMYCIN 500 MG TABLET PO SCH ×2 (08:53→21:00)
[2020-03-07] MEDS: AMOXICILLIN TRIHYDRATE 250 MG CAPSULE PO SCH ×2 (08:53→17:00)
[2020-03-07] MEDS: HYDROCORTISONE SOD SUCCINATE 100 MG/2 ML VIAL IV SCH (08:53)
[2020-03-07] MEDS: PANTOPRAZOLE 40 MG TABLET.DR PO SCH ×2 (08:53→17:00)
[2020-03-07] MEDS: VALSARTAN 80 MG TABLET PO SCH (08:54)
[2020-03-07] MEDS: ENOXAPARIN SODIUM 40 MG/0.4 ML DISP.SYRIN SQ SCH (08:55)
[2020-03-07] MEDS: MEROPENEM 1 G in IV NS 0.9% 100 ML IV SCH (08:55)
--- NOTE | 2020-03-07 09:45 | NUR ---
MS RN NOTES CLARIFIED WITH PREMIUM CANCELLATION CLERK EVER PRICE REGARDING BILIRUBIN BLOOD DRAW ORDER , TOMMIE PRICE SAID TO CHANGE IT FOR TOMORROW WITH AM LABS, ORDERS CLARIFIED AND READ BACK WITH PREMIUM CANCELLATION CLERK,NOTED AND CARRIED OUT.
--- NOTE | 2020-03-07 11:24 | NUR ---
MS RN NOTES RECEIVED NEW ORDERS FROM TOMMIE PRICE TO CHANGE DIET TO NPO, ORDER CLARIFIED AND READ BACK, NOTED AND CARRIED OUT
[2020-03-07 13:35] LABS: BILIRUBIN,DIRECT 0.2 mg/dL (0.0-0.2); BILIRUBIN,TOTAL 0.4 mg/dL (0.2-1.0)
--- NOTE | 2020-03-07 14:30 | NUR ---
MS RN NOTES MRCP NOT DONE DUE TO PATIENT PER TECH WILL NOT FIT IN THE MACHINE, CLINICAL NURSE MANAGER EVER PRICE MADE AWARE AND DR AVALOS NOTIFIED.
--- NOTE | 2020-03-07 15:08 | NUR ---
MS RN NOTES RECEIVED NEW ORDERS FROM DR AVALOS DISCONTINUE NPO AND RESUME PREVIOUS DIET. NOTED AND CARRIED OUT.
--- NOTE | 2020-03-07 15:18 | NUR ---
MS RN NOTES RECEIVED NEW ORDERS FROM [employer]PER[employer] CONSULTANT EVER PRICE FOR STAT HIDA, STAT ABDOMINAL ULTRASOUND AND NPO, ORDERS CLARIFIED AND READ BACK TO [employer]PER[employer] CONSULTANT. NOTED AND CARRIED OUT.
[2020-03-07 16:38] VITALS: BP 137/60
--- NOTE | 2020-03-07 17:55 | NUR ---
MS RN NOTES PATIENT TRANSPORTED FOR HIDA BY MICHELA PATIENT ALERT ORIENTED X 2-3. NO ACUTE DISTRESS NOTED. BREATHING UNLABORED. IV ACCESS PATENT AND INTACT, NO REDNESS OR SWELLING NOTED.RIGHT BESS DRAIN INTACT WITH 25ML SEROSANGUINEOUS OUTPUT AND LEFT BESS DRAIN INTACT WITH 75 ML SEROSANGUINEOUS OUTPUT. ABDOMINAL DRESSING CLEAN DRY AND INTACT.NEEDS ATTENDED AND ANTICIPATED. KEPT CLEAN DRY AND COMFORTABLE. SAFETY MEASURES IN PLACE.
--- NOTE | 2020-03-07 19:00 | NUR ---
MS RN NOTES PATIENT STILL OUT OF THE FLOOR AT THIS. WILL ENDORSE TO NIGHT NURSE FOR CONTINUITY OF CARE.
--- NOTE | 2020-03-07 19:30 | NUR ---
PATIENT CAME FROM [facility] SCAN, AWAKE, A/O X4. CALL LIGHT WITHIN REACH. BED IN LOWEST AND LOCKED POSITION.
[2020-03-07 20:00] VITALS: BP 136/59
--- NOTE | 2020-03-07 20:03 | NUR ---
MS RN OPENING NOTES: PATIENT IN BED AWAKE JUST HAD A HIDA SCAN, A/O X3. CALL LIGHT WITHIN REACH. BED ALARM ON. BED IN LOWEST AND LOCKED POSITION. PER MICHELA FROM HIDA SCAN PATIENT WILL GO DOWN AGAIN FOR THE SECOND HIDA SCAN AT 2114 PATIENT MADE AWARE. NO SOB NOTED. NO COMPLAIN OF PAIN. WITH RIGHT LOWER QUADRANT ABD. ILEOSTOMY WITH MODERATE AMOUNT OF STOOL, WATERY, BROWNISH COLOR, NO LEAKING NOTED, BAG IS INTACT. WITH 2 BESS's ON THE RIGHT AND LEFT SIDES OF THE ABDOMEN WITH SEROSANGUINOUS SMALL AMOUNT OUTPUT, BOTH ARE INTACT,AND DRESSINGS ARE CLEAN AND DRY. ABDOMINAL SURGICAL DRESSING IS CLEAN,DRY AND INTACT.
--- NOTE | 2020-03-07 21:26 | NUR ---
PATIENT WENT DOWN FOR HIDA SCAN AGAIN.
--- NOTE | 2020-03-07 22:00 | NUR ---
[facility]
[2020-03-07] MEDS: METRONIDAZOLE 500MG/ NS 100ML 500 MG in PREMIX 1 EA IV SCH (22:28)
--- NOTE | 2020-03-08 05:15 | NUR ---
RN CLOSING NOTES: PATIENT IN BED AWAKE A/O X4, ON NPO, PATIENT AWARE. NO SOB NOTED. NO COMPLAIN OF PAIN. CALL LIGHT WITHIN REACH. RESTED THROUGHOUT THE NIGHT. BED ALARM ON. BED IN LOWEST AND LOCKED POSITION. POST OP INCISION AND JAI PAINTED WITH BETADINE,DRESSING CHANGED, WITH SCANTY AMOUNT OF DRAINAGE, NO ODOR, NO REDNESS, WITH POST OP 14 JAI INTACT WITH ONE STAPLE ON THE LEFT SIDE OF THE INCISION INTACT, 5 OF THE SURGICAL INCISION DEHISCED( 3 ON THE MIDDLE OF THE INCISION AND 2 ON THE LOWER PART OF THE INCISION, JAI ARE INTACT. COVERED WITH DRESSING. 2 BESS's MILKED AND DRAIN AND RECORDED. BOTH BESS's ARE INTACT WITH MEPILEX DRESSINGS ON BOTH SIDES. RIGHT BESS HAS 2ML SEROSANGUINOUS OUTPUT AND THE LEFT BESS HAS 80ML SEROSANGUINOUS OUTPUT. ILEOSTOMY BAG IS INTACT, NO LEAKING NOTED. DRAINED 250ML BROWNISH,WATERY STOOL. STOOL SAMPLE COLLECTED FOR C-DIFF AND SENT TO THE LAB.
[2020-03-08] MEDS: METRONIDAZOLE 500MG/ NS 100ML 500 MG in PREMIX 1 EA IV SCH ×3 (05:48→20:21)
[2020-03-08] MEDS: BLOOD SUGAR DIAGNOSTIC 1 EACH STRIP IN SCH ×4 (06:39→22:09)
[2020-03-08 06:41] LABS: BASOPHILS % (AUTO) 0.1 % (0.0-2.0); EOSINOPHILS % (AUTO) 0.9 % (0.0-6.0); HEMATOCRIT 29 % (33-45); HEMOGLOBIN 9.3 g/dL (11.5-14.8); LYMPHOCYTES # (AUTO) 0.8 /CMM (0.8-4.8); LYMPHOCYTES % (AUTO) 5.7 % (20.0-44.0); MEAN CORPUSCULAR HGB CONC 32 g/dl (31.0-36.0); MEAN CORPUSCULAR VOLUME 88 fL (82-100); MONOCYTES # (AUTO) 0.7 /CMM (0.1-1.30); NEUTROPHILS # (AUTO) 12.6 /CMM (1.8-8.9); NEUTROPHILS % (AUTO) 88.3 % (43.0-81.0); PLATELET COUNT (AUTO) 378 /CMM (150-450); RED BLOOD CELL COUNT(AUTO) 3.28 MIL/uL (4.0-5.2); WHITE BLOOD COUNT (AUTO) 14.3 K/uL (4.3-11.0)
[2020-03-08 07:09] LABS: BILIRUBIN,TOTAL 0.5 mg/dL (0.2-1.0); CALCIUM, SERUM 7.4 mg/dL (8.5-10.1); CREATININE 0.7 mg/dL (0.6-1.3); MAGNESIUM 1.7 mg/dL (1.8-2.4); PHOSPHORUS 2.5 mg/dL (2.5-4.9); POTASSIUM 3.6 mmol/L (3.5-5.1); TOTAL PROTEIN, SERUM 4.9 g/dL (6.4-8.2)
[2020-03-08 07:16] LABS: ALBUMIN 1.3 g/dL (3.4-5.0)
[2020-03-08 08:00] VITALS: BP 141/61
--- NOTE | 2020-03-08 08:00 | NUR ---
MS RN OPENING NOTES RECEIVED PATIENT IN BED AWAKE ALERT AND ORIENTED X 2. LIBERIAN/SWEDISH SPEAKING BUT MOSTLY LIBERIAN. NO CARDIAC OR RESP DISTRESS NOTED. SATURATING WELL ON ROOM AIR AT 96%. NO COMPLAINTS OF PAIN OR DISCOMFORT. PT IS AFEBRILE. IV ACCESS NOTED ON R UPPER ARM. INTACT AND PATENT AND FLUSHING WELL. NO S/S OF INFECTION OR INFILTRATION NOTED. PT ALSO NOTED WITH AN ILEOSTOMY BAG, DRAINING WITH STOOL. LIZZ GONCALVES DRAIN NOTED ON R AND L FLANK. BOTH BESS DRAINS DRAINING WITH BRIE COLORED FLUID. SAFETY PRECAUTIONS IN PLACE, BED LOW AND LOCKED ON SEMI FOWLERS POSITION. CALL LIGHT IN REACH. SIDE RAILS UP. BED ALARM ON. WILL CONTINUE TO MONITOR.
--- NOTE | 2020-03-08 08:05 | NUR ---
RESUME DIET ASKED EVER IF OKAY TO RESUME DIET THIS AM SINCE PT IS STILL NPO. NOTIFIED EVER OF HIDA SCAN RESULTS AND ABD ULTRASOUND. PER EVER OKAY TO RESUME DIET. PT MAY EAT. ORDER NOTED AND CARRIED OUT. PT PROVIDED WITH BREAKFAST.
--- NOTE | 2020-03-08 08:15 | NUR ---
ABD ULTRASOUND/ HIDA SCAN EVER BROADCAST OPERATIONS MANAGER NOTIFIED OF ABD ULTRASOUND RESULTS AND HIDA SCAN RESULTS. PER EVER. SHE IS ON HER WAY AND SHE WILL COME AND SEE PT IN A BIT.
[2020-03-08] MEDS: VALSARTAN 80 MG TABLET PO SCH (08:33)
[2020-03-08] MEDS: HYDROCORTISONE SOD SUCCINATE 100 MG/2 ML VIAL IV SCH (08:33)
[2020-03-08] MEDS: AMLODIPINE BESYLATE 10 MG TABLET PO SCH (08:34)
[2020-03-08] MEDS: AMOXICILLIN TRIHYDRATE 250 MG CAPSULE PO SCH ×2 (08:34→16:52)
[2020-03-08] MEDS: PANTOPRAZOLE 40 MG TABLET.DR PO SCH ×2 (08:34→16:52)
[2020-03-08] MEDS: CLARITHROMYCIN 500 MG TABLET PO SCH ×2 (08:34→21:05)
[2020-03-08] MEDS: ENOXAPARIN SODIUM 40 MG/0.4 ML DISP.SYRIN SQ SCH (08:35)
[2020-03-08] MEDS: INSULIN REGULAR, HUMAN 100 UNIT/ML 3 ML VIAL SQ PRN ×3 (08:41→17:07)
--- NOTE | 2020-03-08 09:30 | NUR ---
L FLANK BESS DRAIN L FLANK BESS DRAIN EMPTIED IT WAS GETTING FULL. TOOK OUT 90ML OF BRIE COLORED FLUID.
--- NOTE | 2020-03-08 09:45 | NUR ---
SEEN BY EVER REILLY PT SEEN BY EVER REILLY THIS AM. PROVIDED WITH UPDATE AND REPORT.
[2020-03-08] MEDS: Magnesium 1GM/D5W 100ML PREMIX 100 ML IV SCH ×2 (09:56→10:57)
[2020-03-08 16:00] VITALS: BP 114/60
--- NOTE | 2020-03-08 19:10 | NUR ---
MS RN NOTES RECEIVED PT IN BED AND AWAKE. PT A/O X 2-3. NO ACUTE DISTRESS NOTED. RESPIRATIONS EVEN AND UNLABORED WITH NO S/S OF ACUTE DISTRESS OR SOB NOTED. NO COMPLAINTS OF PAIN. SAFETY MEASURES IN PLACE WITH BED IN LOWEST LOCKED POSITION WITH SIDE RAILS UP X2. CALL LIGHT WITHIN REACH. WILL CONTINUE TO MONITOR.
--- NOTE | 2020-03-08 19:38 | NUR ---
MS RN CLOSING NOTES PATIENT IN BED AWAKE ALERT AND ORIENTED X 2. MALTESE/ALBANIAN SPEAKING . NO CARDIAC OR RESP DISTRESS NOTED. SATURATING WELL ON ROOM AIR AT 96%. NO COMPLAINTS OF PAIN OR DISCOMFORT. PT IS AFEBRILE. IV ACCESS NOTED ON R UPPER ARM. INTACT AND PATENT AND FLUSHING WELL. NO S/S OF INFECTION OR INFILTRATION NOTED. PT ALSO NOTED WITH AN ILEOSTOMY BAG, DRAINING WITH STOOL. ILEOSTOMY BAG CHANGED D/T LEAKAGE. LIZZ GONCALVES DRAIN NOTED ON R AND L FLANK. BOTH BESS DRAINS DRAINING WITH BRIE COLORED FLUID, L BESS DRAINED WITH 80ML, R BESS RAIN DRAINED WITH 80 ML WELL. MAGNESIUM REPLACED TODAY. SAFETY PRECAUTIONS IN PLACE, BED LOW AND LOCKED ON SEMI FOWLERS POSITION. CALL LIGHT IN REACH. SIDE RAILS UP. BED ALARM ON. WILL ENDORSE TO NEXT SHIFT
[2020-03-08 20:00] VITALS: BP 138/65
[2020-03-08] MEDS: *INSULIN REGULAR(HUMULIN R)HUM 100 UNIT/ML VIAL SQ PRN (22:09)
--- NOTE | 2020-03-08 22:09 | NUR ---
MS RN NOTES PT REFUSED SLIDING SCALE INSULIN COVERAGE. WILL CONTINUE TO MONITOR.
[2020-03-09] MEDS: METRONIDAZOLE 500MG/ NS 100ML 500 MG in PREMIX 1 EA IV SCH ×3 (04:43→20:14)
[2020-03-09 07:08] LABS: BASOPHILS % (AUTO) 0.1 % (0.0-2.0); HEMATOCRIT 31 % (33-45); HEMOGLOBIN 10.1 g/dL (11.5-14.8); LYMPHOCYTES # (AUTO) 1.1 /CMM (0.8-4.8); LYMPHOCYTES % (AUTO) 7.3 % (20.0-44.0); MEAN CORPUSCULAR HGB CONC 33 g/dl (31.0-36.0); MEAN CORPUSCULAR VOLUME 88 fL (82-100); MONOCYTES % (AUTO) 6.9 % (2.0-12.0); NEUTROPHILS # (AUTO) 12.8 /CMM (1.8-8.9); NEUTROPHILS % (AUTO) 84.7 % (43.0-81.0); PLATELET COUNT (AUTO) 411 /CMM (150-450); WHITE BLOOD COUNT (AUTO) 15.1 K/uL (4.3-11.0)
[2020-03-09 07:28] LABS: BILIRUBIN,DIRECT 0.1 mg/dL (0.0-0.2); BILIRUBIN,TOTAL 0.4 mg/dL (0.2-1.0); TOTAL PROTEIN, SERUM 5.2 g/dL (6.4-8.2)
[2020-03-09 07:35] LABS: ALBUMIN 1.4 g/dL (3.4-5.0)
[2020-03-09 07:36] LABS: CALCIUM, SERUM 7.5 mg/dL (8.5-10.1); CREATININE 0.7 mg/dL (0.6-1.3); PHOSPHORUS 2.6 mg/dL (2.5-4.9); POTASSIUM 3.5 mmol/L (3.5-5.1)
--- NOTE | 2020-03-09 07:38 | NUR ---
MS RN NOTES PT IN BED AND AWAKE. PT A/O X 2-3. NO ACUTE DISTRESS NOTED. RESPIRATIONS EVEN AND UNLABORED WITH NO S/S OF ACUTE DISTRESS OR SOB NOTED. NO COMPLAINTS OF PAIN. SAFETY MEASURES IN PLACE WITH BED IN LOWEST LOCKED POSITION WITH SIDE RAILS UP X2. CALL LIGHT WITHIN REACH. WILL CONTINUE TO MONITOR.
[2020-03-09] MEDS: BLOOD SUGAR DIAGNOSTIC 1 EACH STRIP IN SCH ×4 (07:51→21:13)
[2020-03-09 08:00] VITALS: BP 150/70
--- NOTE | 2020-03-09 08:00 | NUR ---
MS RN OPENING NOTES RECEIVED PATIENT IN BED, AWAKE, A/O X3. PATIENT IS ON ROOM AIR; BREATHING IS EVEN AND UNLABORED. NO SOB PRESENT AT THIS TIME. NO PAIN COMPLAINS AT THE MOMENT. SAPPHIRE PICC PRESENT AND INTACT. BESS DRAINS ON BILATERALLY. ILEOSTOMY IN PLACE. SAFETY PRECAUTIONS IN PLACE; BED IN LOW POSITION AND LOCKED, RAILS UP X2, CALL LIGHT WITHIN REACH. WILL CONTINUE TO MONITOR PATIENT.
--- NOTE | 2020-03-09 08:19 | NUR ---
MS RN NOTES LAB CALLED AT 0740 AND REPORTED A CRITICAL ALBUMIN VALUE OF 1.4. CONTACTED AND VALUE DOCUTEMNTED. WILL CONTINUE TO MONITOR.
[2020-03-09] MEDS: INSULIN REGULAR, HUMAN 100 UNIT/ML 3 ML VIAL SQ PRN ×3 (08:41→17:44)
[2020-03-09] MEDS: AMOXICILLIN TRIHYDRATE 250 MG CAPSULE PO SCH ×2 (08:43→17:14)
[2020-03-09] MEDS: VALSARTAN 80 MG TABLET PO SCH (08:44)
[2020-03-09] MEDS: PANTOPRAZOLE 40 MG TABLET.DR PO SCH ×2 (08:44→17:14)
[2020-03-09] MEDS: AMLODIPINE BESYLATE 10 MG TABLET PO SCH (08:44)
[2020-03-09] MEDS: CLARITHROMYCIN 500 MG TABLET PO SCH ×2 (08:44→21:13)
[2020-03-09] MEDS: ENOXAPARIN SODIUM 40 MG/0.4 ML DISP.SYRIN SQ SCH (08:45)
[2020-03-09] MEDS ORDERED: HYDROCORTISONE SOD SUCCINATE 100 MG/2 ML VIAL IV SCH (09:00)
[2020-03-09] MEDS ORDERED: methylPREDNISolone DOSPAK(4MG) 1 PACK TAB.DS.PK PO ONE (12:30)
[2020-03-09] MEDS ORDERED: methylPREDNISolone (4MG) 4 MG TABLET (DAY #1) PO ONE (12:30)
[2020-03-09 16:00] VITALS: BP 129/63
[2020-03-09] MEDS ORDERED: methylPREDNISolone (4MG) 4 MG TABLET (DAY #1, BEFORE DINNER) PO ONE (17:30)
--- NOTE | 2020-03-09 18:47 | NUR ---
MS RN CLOSING NOTES PATIENT IN BED, AWAKE, A/O X3 AND WATCHING TV. PATIENT IS ON ROOM AIR; BREATHING IS EVEN AND UNLABORED. NO SOB PRESENT AT THIS TIME. PATIENT DENIES PAIN. SAPPHIRE PICC PRESENT AND INTACT. BESS DRAINS ON BILATERALLY WITH A DRAINAGE OF 155 CC ON THE LEFT AND 30 CC ON THE RIGHT. ILEOSTOMY IN PLACE WITH AN OUTPUT OF 800 CC DURING THE SHIFT. ALL NEEDS ATTENED TO. SAFETY PRECAUTIONS REMAIN IN PLACE; BED IN LOW POSITION AND LOCKED, RAILS UP X2, CALL LIGHT WITHIN REACH. WILL ENDORSE TO COMMUNITY DEVELOPMENT PLANNER NURSE.
--- NOTE | 2020-03-09 19:30 | NUR ---
MS RN OPENING NOTE RECEIVED PATIENT IN BED. A/OX3. KHMER SPEAKING ABLE TO MAKE BASIC NEEDS KNOWN. TOLERATING ROOM AIR AT THIS ITME. RESPIRATIONS ARE EVEN AND UNLABORED. NO S/S SOB NOTED. NO C/O PAIN AT THIS TIME. IN NO APPARENT DISTRESS. IV ACCESS IN SAPPHIRE PICC LINE PATENT AND SALINE LOCKED. ILEOSTOMY IS PRESENT, NO REDNESS OR INFECTION NOTED. BILATERAL BESS DRAINS PRESENT, DRAINING TO BULB SUCTION. BED IS LOW AND LOCKED HOB ELEVATED IN SEMI FOWLERS, SIDE RIALS UP X2, CALL LIGHT WITHIN REACH. WILL CONTINUE TO MONITOR.
[2020-03-09 20:00] VITALS: BP 136/65
[2020-03-09] MEDS: *INSULIN REGULAR(HUMULIN R)HUM 100 UNIT/ML VIAL SQ PRN (21:25)
[2020-03-09] MEDS ORDERED: methylPREDNISolone (4MG) 4 MG TABLET (DAY #1, HS) PO ONE (22:00)
[2020-03-10] MEDS: METRONIDAZOLE 500MG/ NS 100ML 500 MG in PREMIX 1 EA IV SCH ×3 (04:01→20:35)
[2020-03-10] MEDS: BLOOD SUGAR DIAGNOSTIC 1 EACH STRIP IN SCH ×4 (06:14→23:05)
[2020-03-10] MEDS: INSULIN REGULAR, HUMAN 100 UNIT/ML 3 ML VIAL SQ PRN ×4 (06:18→23:07)
[2020-03-10 06:51] LABS: BASOPHILS % (AUTO) 0.1 % (0.0-2.0); HEMATOCRIT 33 % (33-45); LYMPHOCYTES # (AUTO) 0.4 /CMM (0.8-4.8); LYMPHOCYTES % (AUTO) 4.3 % (20.0-44.0); MEAN CORPUSCULAR HGB CONC 33 g/dl (31.0-36.0); MEAN CORPUSCULAR VOLUME 88 fL (82-100); MONOCYTES # (AUTO) 0.2 /CMM (0.1-1.30); MONOCYTES % (AUTO) 2.2 % (2.0-12.0); NEUTROPHILS # (AUTO) 9.8 /CMM (1.8-8.9); NEUTROPHILS % (AUTO) 93.4 % (43.0-81.0); PLATELET COUNT (AUTO) 402 /CMM (150-450); RED BLOOD CELL COUNT(AUTO) 3.82 MIL/uL (4.0-5.2); WHITE BLOOD COUNT (AUTO) 10.5 K/uL (4.3-11.0)
--- NOTE | 2020-03-10 07:22 | NUR ---
MS RN OPENING NOTES RECEIVED PATIENT IN BED, AWAKE, A/O X3. PATIENT IS ON ROOM AIR; BREATHING IS EVEN AND UNLABORED. NO SOB PRESENT AT THIS TIME. PATIENT DENIES ANY PAIN AT THIS MOMENT. SAPPHIRE PICC PRESENT AND INTACT. BESS DRAINS PRESENT ON BILATERALLY AND DRAINING TO THE BULB SUCTION. ILEOSTOMY IN PLACE. SAFETY PRECAUTIONS UP; BED IN LOW POSITION AND LOCKED, RAILS UP X2, CALL LIGHT WITHIN REACH. WILL CONTINUE TO MONITOR PATIENT.
--- NOTE | 2020-03-10 07:25 | NUR ---
MS RN NOTES PATIENT IN BED ALERT ORIENTED X 3. NO ACUTE DISTRESS NOTED. BREATHING UNLABORED. IV ACCESS PATENT AND INTACT, NO REDNESS OR SWELLING NOTED.BILATERAL BESS DRAIN INTACT WITH SEROUS OUTPUT. SURGERY DRESSING CLEAN DRY AND INTACT. SAFETY MEASURES IN PLACE. CALL LIGHT WITHIN REACH. WILL CONTINUE TO MONITOR ACCORDINGLY.
--- NOTE | 2020-03-10 07:26 | NUR ---
MS RN CLOSING NOTE PATIENT IN BED. A/OX3. REMAINS TOLERATING ROOM AIR. RESPIRATIONS ARE EVEN AND UNLABORED. NO SOB NOTED. NO C/O PAIN. NO DISTRESS NOTED. IV ACCESS MAINTAINED IN SAPPHIRE PICC LINE RUNNING TKO. ILEOSTOMY IS MAINTAINED, OUTPUT 250ML. LEFT BESS DRAIN 20 ML SEROUS FLUID, RIGHT BESS DRAIN 35 ML SEROUS FLUID. BED IS LOW AND LOCKED HOB ELEVATED IN SEMI FOWLERS, SIDE RIALS UP X2, CALL LIGHT WITHIN REACH. WILL ENDORSE TO NEXT SHIFT.
[2020-03-10 07:28] LABS: CALCIUM, SERUM 7.5 mg/dL (8.5-10.1); CREATININE 0.9 mg/dL (0.6-1.3); MAGNESIUM 1.9 mg/dL (1.8-2.4); PHOSPHORUS 3.6 mg/dL (2.5-4.9); POTASSIUM 4.3 mmol/L (3.5-5.1)
[2020-03-10] MEDS ORDERED: methylPREDNISolone (4MG) 4 MG TABLET (DAY#2 ACB) PO ONE (07:30)
[2020-03-10 08:00] VITALS: BP 138/60
[2020-03-10] MEDS: PANTOPRAZOLE 40 MG TABLET.DR PO SCH ×2 (08:19→17:47)
[2020-03-10] MEDS: ENOXAPARIN SODIUM 40 MG/0.4 ML DISP.SYRIN SQ SCH (08:19)
[2020-03-10] MEDS: VALSARTAN 80 MG TABLET PO SCH (08:20)
[2020-03-10] MEDS: CLARITHROMYCIN 500 MG TABLET PO SCH ×2 (08:20→21:04)
[2020-03-10] MEDS: AMLODIPINE BESYLATE 10 MG TABLET PO SCH (08:20)
[2020-03-10] MEDS: AMOXICILLIN TRIHYDRATE 250 MG CAPSULE PO SCH ×2 (08:21→17:46)
[2020-03-10] MEDS ORDERED: methylPREDNISolone (4MG) 4 MG TABLET (DAY#2,PC LUNCH) PO ONE (12:30)
[2020-03-10 16:00] VITALS: BP 124/60
[2020-03-10] MEDS ORDERED: methylPREDNISolone (4MG) 4 MG TABLET (DAY#2, PC DINNER) PO ONE (17:30)
--- NOTE | 2020-03-10 19:00 | NUR ---
MS RN NOTES PATIENT IN BED ALERT ORIENTED X 3. NO ACUTE DISTRESS NOTED. BREATHING UNLABORED. IV ACCESS PATENT AND INTACT, NO REDNESS OR SWELLING NOTED.RIGHT BESS DRAIN INTACT WITH SEROUS OUTPUT 25 ML AND LEFT BESS DRAIN INTACT WITH SEROUS OUTPUT 50 ML. SURGERY DRESSING CLEAN DRY AND INTACT. NEEDS ATTENDED AND ANTICIPATED. SAFETY MEASURES IN PLACE. CALL LIGHT WITHIN REACH. WILL ENDORSE TO NIGHT NURSE FOR CONTINUITY OF CARE.
--- NOTE | 2020-03-10 19:45 | NUR ---
MS RN NOTES RECEIVED PATIENT IN BED ALERT ORIENTED X 3. NO ACUTE DISTRESS NOTED. BREATHING UNLABORED. IV ACCESS PATENT AND INTACT, NO REDNESS OR SWELLING NOTED.RIGHT BESS DRAIN INTACT WITH SEROUS OUTPUT 10 ML AND LEFT BESS DRAIN INTACT WITH SEROUS OUTPUT 10 ML. SURGERY DRESSING CLEAN DRY AND INTACT.SAFETY MEASURES IN PLACE,ASPIRATION PRECAUTION EMPHASIZED. NEEDS ATTENDED AND ANTICIPATED. SAFETY MEASURES IN PLACE. CALL LIGHT WITHIN EASY REACH. WILL CONTINUE TO MONITOR ACCORDINGLY.
[2020-03-10 20:00] VITALS: BP 133/63
[2020-03-10 20:49] VITALS: BP 133/63
[2020-03-10] MEDS ORDERED: methylPREDNISolone (4MG) 4 MG TABLET (DAY#2, HS) PO ONE (21:00)
[2020-03-11] MEDS: METRONIDAZOLE 500MG/ NS 100ML 500 MG in PREMIX 1 EA IV SCH ×2 (04:14→12:37)
--- NOTE | 2020-03-11 06:01 | NUR ---
RN NOTES ALL NEEDS ATTENDED AND MET. ABLE TO REST AND SLEPT AT INTERVALS, KEPT CLEAN WARM DRY AND COMFORTABLE. SAFETY MEASURES IN PLACE, ASPIRATION PRECAUTION EMPHASIZED, WILL ENDORSE TO AM NURSE FOR CONTINUITY OF CARE.
[2020-03-11 06:50] LABS: BASOPHILS % (AUTO) 0.3 % (0.0-2.0); HEMATOCRIT 33 % (33-45); HEMOGLOBIN 10.8 g/dL (11.5-14.8); LYMPHOCYTES # (AUTO) 0.6 /CMM (0.8-4.8); LYMPHOCYTES % (AUTO) 4.9 % (20.0-44.0); MEAN CORPUSCULAR HGB CONC 32 g/dl (31.0-36.0); MEAN CORPUSCULAR VOLUME 88 fL (82-100); MONOCYTES # (AUTO) 0.4 /CMM (0.1-1.30); MONOCYTES % (AUTO) 2.7 % (2.0-12.0); NEUTROPHILS # (AUTO) 12.2 /CMM (1.8-8.9); NEUTROPHILS % (AUTO) 92.1 % (43.0-81.0); PLATELET COUNT (AUTO) 501 /CMM (150-450); RED BLOOD CELL COUNT(AUTO) 3.79 MIL/uL (4.0-5.2); WHITE BLOOD COUNT (AUTO) 13.3 K/uL (4.3-11.0)
[2020-03-11] MEDS: BLOOD SUGAR DIAGNOSTIC 1 EACH STRIP IN SCH ×3 (06:53→17:18)
[2020-03-11] MEDS: INSULIN REGULAR, HUMAN 100 UNIT/ML 3 ML VIAL SQ PRN ×3 (06:54→17:15)
[2020-03-11 07:10] LABS: CREATININE 0.9 mg/dL (0.6-1.3); MAGNESIUM 1.8 mg/dL (1.8-2.4); PHOSPHORUS 3.4 mg/dL (2.5-4.9); POTASSIUM 4.8 mmol/L (3.5-5.1)
[2020-03-11] MEDS ORDERED: methylPREDNISolone (4MG) 4 MG TABLET (DAY#3,ACB) PO ONE (07:30)
--- NOTE | 2020-03-11 07:40 | NUR ---
MS/RN NOTE THE IS RECEIVED IN BED. A/O X3. DENIES SOB. DENIES PAIN. IN ROOM AIR. RESPIRATION REGULAR AND UNLABORED. SAPPHIRE PICC LINE PATENT AND SALINE LOCKED. BED LOW AND LOCKED. SIDE RAILS UP X3. CALL LIGHT WITHIN REACH. WILL CONTINUE TO MONITOR.
[2020-03-11 08:00] VITALS: BP 142/66
[2020-03-11] MEDS: AMOXICILLIN TRIHYDRATE 250 MG CAPSULE PO SCH ×2 (08:42→17:17)
[2020-03-11] MEDS: PANTOPRAZOLE 40 MG TABLET.DR PO SCH ×2 (08:43→17:17)
[2020-03-11] MEDS: AMLODIPINE BESYLATE 10 MG TABLET PO SCH (08:43)
[2020-03-11] MEDS: VALSARTAN 80 MG TABLET PO SCH ×3 (08:43→17:18)
[2020-03-11] MEDS: CLARITHROMYCIN 500 MG TABLET PO SCH (08:43)
[2020-03-11] MEDS: ENOXAPARIN SODIUM 40 MG/0.4 ML DISP.SYRIN SQ SCH (08:50)
--- NOTE | 2020-03-11 10:05 | NUR ---
MS/RN NOTE DIOVAN 160 MG DUE AT 1000 NOT GIVEN BECAUSE ALREADY ADMINISTERED DIOVAN 160 MG.
[2020-03-11] MEDS ORDERED: methylPREDNISolone (4MG) 4 MG TABLET (DAY#3,PC LUNCH) PO ONE (12:30)
[2020-03-11] MEDS ORDERED: AMOX500T2 PO (14:50)
[2020-03-11] MEDS ORDERED: CLAR-45 PO (14:50)
[2020-03-11] MEDS ORDERED: VALS160T2 PO (14:50)
[2020-03-11] MEDS ORDERED: METH4TAB3 PO (14:50)
[2020-03-11 16:00] VITALS: BP 133/60
[2020-03-11 17:18] VITALS: BP 133/60
[2020-03-11] MEDS ORDERED: methylPREDNISolone (4MG) 4 MG TABLET (DAY#3,PC DINNER) PO ONE (17:30)
--- NOTE | 2020-03-11 18:45 | NUR ---
MS/RN NOTE THE PATIENT ALERT AND ORIENTED X3. DENIES PAIN. IN ROOM AIR AND DENIES SOB. RESPIRATION REGULAR AND UNLABORED. PATIENT IN NO APPARENT DISTRESS. DRESSING CHANGES DONE. DISCHARGE PICTURES TAKEN. ILEOSTOMY OUTPUT 400. DISCHARGE EDUCATION PROVIDED TO THE PATIENT AND SHE VERBALIZED UNDERSTANDING. REPORT GIVEN TO THE RECEIVING NURSE. PATIENT GOT PICKED UP BY EMT. LEFT THE HOSPITAL IN STABLE CONDITION.
[2020-03-11] MEDS ORDERED: methylPREDNISolone (4MG) 4 MG TABLET (DAY#3, HS) PO ONE (22:00)
[2020-03-12] MEDS ORDERED: methylPREDNISolone (4MG) 4 MG TABLET (DAY #4, ACB) PO ONE (07:30)
[2020-03-12] MEDS ORDERED: methylPREDNISolone (4MG) 4 MG TABLET (DAY #4, PC LUNCH) PO ONE (12:30)
[2020-03-12] MEDS ORDERED: methylPREDNISolone (4MG) 4 MG TABLET (DAY#4 HS) PO ONE (22:00)
[2020-03-13] MEDS ORDERED: methylPREDNISolone (4MG) 4 MG TABLET (DAY#5, ACB) PO ONE (07:30)
[2020-03-13] MEDS ORDERED: methylPREDNISolone (4MG) 4 MG TABLET (DAY#5,HS) PO ONE (22:00)
[2020-03-14] MEDS ORDERED: methylPREDNISolone (4MG) 4 MG TABLET (DAY#6,ACB) PO ONE (07:30)
== END 2020-03-11 18:50 | DRG 710 ==
LOC: ER 21:10 → TELE-TD 02-26 00:42 → EDBD 02-26 00:42 → ICU 02-26 02:39 → ICUOV 02-29 18:26 → TELE1 03-01 07:41 → TELE 03-01 14:17 → MED 03-02 21:12
PROVIDERS: ADMIT Nurse Practitioner Acute Care; ATTEND Nurse Practitioner Acute Care
PROC: 0DTE0ZZ Resection of Large Intestine, Open Approach (ICD-10-PCS; principal; 2020-02-26)
PROC: 0DJD4ZZ Inspection of Lower Intestinal Tract, Percutaneous Endoscopic Approach (ICD-10-PCS; 2020-02-26)
PROC: 5A1945Z Respiratory Ventilation, 24-96 Consecutive Hours (ICD-10-PCS; 2020-02-26)
PROC: 0D1B0Z4 Bypass Ileum to Cutaneous, Open Approach (ICD-10-PCS; 2020-02-26)
PROC: 0BH17EZ Insertion of Endotracheal Airway into Trachea, Via Natural or Artificial Opening (ICD-10-PCS; 2020-02-26)
PROC: 30233N1 Transfusion of Nonautologous Red Blood Cells into Peripheral Vein, Percutaneous Approach (ICD-10-PCS; 2020-02-26)
PROC: B548ZZA Ultrasonography of Superior Vena Cava, Guidance (ICD-10-PCS; 2020-02-27)
PROC: B543ZZA Ultrasonography of Right Jugular Veins, Guidance (ICD-10-PCS; 2020-02-27)
PROC: 05HM33Z Insertion of Infusion Device into Right Internal Jugular Vein, Percutaneous Approach (ICD-10-PCS; 2020-02-27)
PROC: 02HV33Z Insertion of Infusion Device into Superior Vena Cava, Percutaneous Approach (ICD-10-PCS; 2020-02-27)
PROC: 0DB68ZX Excision of Stomach, Via Natural or Artificial Opening Endoscopic, Diagnostic (ICD-10-PCS; 2020-03-01)
DX: A41.9 Sepsis, unspecified organism (principal); K72.00 Acute and subacute hepatic failure without coma; K63.1 Perforation of intestine (nontraumatic); J96.90 Respiratory failure, unspecified, unspecified whether with hypoxia or hypercapnia; N17.0 Acute kidney failure with tubular necrosis; K65.9 Peritonitis, unspecified; R65.21 Severe sepsis with septic shock; G93.41 Metabolic encephalopathy; K83.09 Other cholangitis; D68.59 Other primary thrombophilia; E11.65 Type 2 diabetes mellitus with hyperglycemia; F03.90 Unspecified dementia, unspecified severity, without behavioral disturbance, psychotic disturbance, mood disturbance, and anxiety; E87.1 Hypo-osmolality and hyponatremia; D62 Acute posthemorrhagic anemia; I10 Essential (primary) hypertension; Z79.899 Other long term (current) drug therapy; Z79.84 Long term (current) use of oral hypoglycemic drugs; K63.89 Other specified diseases of intestine; E66.01 Morbid (severe) obesity due to excess calories; E78.5 Hyperlipidemia, unspecified; E83.39 Other disorders of phosphorus metabolism; E83.42 Hypomagnesemia; E87.2 Acidosis; J98.11 Atelectasis; Z87.11 Personal history of peptic ulcer disease; Z93.3 Colostomy status; K29.00 Acute gastritis without bleeding; K76.0 Fatty (change of) liver, not elsewhere classified; F09 Unspecified mental disorder due to known physiological condition; K43.5 Parastomal hernia without obstruction or gangrene; B96.81 Helicobacter pylori [H. pylori] as the cause of diseases classified elsewhere; D49.0 Neoplasm of unspecified behavior of digestive system; I45.81 Long QT syndrome; R18.8 Other ascites; Z16.12 Extended spectrum beta lactamase (ESBL) resistance; B96.20 Unspecified Escherichia coli [E. coli] as the cause of diseases classified elsewhere; Z53.31 Laparoscopic surgical procedure converted to open procedure; K81.0 Acute cholecystitis; D25.9 Leiomyoma of uterus, unspecified
CPT/HCPCS: 31720; 36415; 36569; 36600; 71045-TC; 74018; 76700-TC; 78226; 80048-TC; 80053-TC; 80061-TC; 80076-TC; 80202-TC; 81000-TC; 82247-TC; 82248-TC; 82533; 82550-TC; 82728-TC; 82803-TC; 82962-TC; 83605-TC; 83615-TC; 83735-TC; 83880; 84100-TC; 84484-TC; 85025-TC; 85027-TC; 85378-TC; 85610-TC; 85730-TC; 86140-TC; 86850-TC; 86921-TC; 87040-TC; 87070-TC; 87086-TC; 87186-TC; 88305-TC; 88307-TC; 94002-TC; 94003-TC; 94760-TC; 94799-TC; 97110-TC; 97116-TC; 97530-TC; A4216; A6209; A6253; A6403; A9537; C1751; C9113; G0378; J0171; J0330; J1450; J1650; J1720; J1815; J2185; J2250; J2270; J2370; J2405; J2543; J2704; J3010; J3370; J3475; J3490; J7030; J7040; J7050; J7060; J7120; J7509; P9016-BL; P9045; P9047; Q9963; Q9967; Q9968

== ENCOUNTER 2020-04-16 11:20 | Inpatient (IN) | payer OTHER ==
[~2020-04-16] VITALS: Ht 165.1 cm; Wt 73.0 kg
[~2020-04-16 11:20] MED LIST: AMLO10TA7 PO; AMOX500T2 PO; CHOL400T11 PO; CLAR-45 PO; DONE10TA11 PO; MAGN400O6 PO; MEMA10TA PO; METH4TAB3 PO; PANT40TA2 PO; SITA100T PO; VALS160T2 PO
--- NOTE | 2020-04-16 11:38 | NUR ---
[id number] C/O ABD PAIN ON COLOSTOMY SITE, PLACED YESTERDAY PER EMS. PT AAOX1, RR EVEN & UNLABORED. DENIES CP, SOB, DIZZINESS, N/V AT THIS TIME. AWAITING EVAL BY KIMBERLY. WILL CONT TO MONITOR.
[2020-04-16] MEDS ORDERED: MORPHINE SULFATE INJ 4 MG/ML DISP.SYRIN ONE (11:55)
[2020-04-16] MEDS ORDERED: ONDANSETRON HCL/PF 4 MG/2 ML VIAL ONE (11:55)
[2020-04-16] MEDS ORDERED: ONDANSETRON HCL/PF 4 MG/2 ML VIAL IVP ONE (12:00)
[2020-04-16] MEDS ORDERED: MORPHINE SULFATE INJ 2 MG/ML DISP.SYRIN IV ONE (12:00)
--- NOTE | 2020-04-16 12:14 | NUR ---
PT SEEN & EVAL'D BY DR. BURNS. MEDICATED ORDERED, PT MEGHAN WELL.
[2020-04-16 12:16] LABS: BASOPHILS # (AUTO) 0.1 /CMM (0.0-0.2); BASOPHILS % (AUTO) 0.6 % (0.0-2.0); EOSINOPHILS % (AUTO) 1.2 % (0.0-6.0); HEMATOCRIT 39 % (33-45); HEMOGLOBIN 12.7 g/dL (11.5-14.8); LYMPHOCYTES # (AUTO) 1.3 /CMM (0.8-4.8); LYMPHOCYTES % (AUTO) 16.3 % (20.0-44.0); MEAN CORPUSCULAR HGB CONC 33 g/dl (31.0-36.0); MEAN CORPUSCULAR VOLUME 88 fL (82-100); MONOCYTES # (AUTO) 0.6 /CMM (0.1-1.30); MONOCYTES % (AUTO) 7.2 % (2.0-12.0); NEUTROPHILS % (AUTO) 74.7 % (43.0-81.0); PLATELET COUNT (AUTO) 361 /CMM (150-450); RED BLOOD CELL COUNT(AUTO) 4.41 MIL/uL (4.0-5.2); WHITE BLOOD COUNT (AUTO) 8.1 K/uL (4.3-11.0)
[2020-04-16 12:25] LABS: CALCIUM, SERUM 9.6 mg/dL (8.5-10.1); CARBON DIOXIDE 19 mmol/L (21-32); CHLORIDE 98 mmol/L (98-107); CREATININE 2.1 mg/dL (0.6-1.3); GLUCOSE 215 mg/dL (74-106); POTASSIUM 4.6 mmol/L (3.5-5.1); SODIUM SERUM 130 mmol/L (136-145); UREA NITROGEN, BLOOD 58 mg/dL (7-18)
[2020-04-16 12:31] LABS: ALANINE AMINOTRANSFERASE 42 U/L (12-78); ALBUMIN 3.3 g/dL (3.4-5.0); ALKALINE PHOSPHATASE 103 U/L (46-116); ASPARTATE AMINOTRANSFERASE 29 U/L (15-37); BILIRUBIN,DIRECT 0.1 mg/dL (0.0-0.2); BILIRUBIN,TOTAL 0.3 mg/dL (0.2-1.0); LIPASE 842 U/L (73-393); TOTAL PROTEIN, SERUM 7.7 g/dL (6.4-8.2)
[2020-04-16] MEDS ORDERED: MULT-24 PO (13:00)
[2020-04-16] MEDS ORDERED: PANT40TA2 PO (13:00)
[2020-04-16] MEDS ORDERED: MEGE400O4 PO (13:00)
[2020-04-16] MEDS ORDERED: MAGN400T26 PO (13:00)
[2020-04-16] MEDS ORDERED: VALS40TA4 PO (13:00)
[2020-04-16] MEDS ORDERED: FOLI1TAB25 PO (13:00)
[2020-04-16] MEDS ORDERED: METF-440 PO (13:00)
--- NOTE | 2020-04-16 13:00 | NUR ---
PT TO CT VIA [facility].
--- NOTE | 2020-04-16 13:07 | NUR ---
PT BACK FROM CT, RM# 6
--- NOTE | 2020-04-16 13:15 | NUR ---
MOVE SHEET SUBMITTED TO ADMITTING AND CALLED FOR TELE BED.
[2020-04-16] MEDS ORDERED: IV NS 0.9% 1,000 ML IV ONE (14:00)
--- NOTE | 2020-04-16 14:17 | NUR ---
AUTHORIZATION TO ADMIT GRANTED PER ADMITTING DEPT, JAYME LAZARO.
--- NOTE | 2020-04-16 14:19 | NUR ---
MD TO MD IN PROGRESS.
--- NOTE | 2020-04-16 15:39 | NUR ---
room [id number]
[2020-04-16] MEDS ORDERED: ONDANSETRON HCL/PF 4 MG/2 ML VIAL IVP PRN (16:00)
[2020-04-16] MEDS ORDERED: ACETAMINOPHEN 325 MG TABLET PO PRN (16:00)
[2020-04-16] MEDS ORDERED: Z GUARD REMEDY 2 OZ OINT TP PRN (16:00)
[2020-04-16] MEDS ORDERED: MAGNESIUM HYDROXIDE 30 ML UDC PO PRN (16:00)
[2020-04-16] MEDS ORDERED: HYDROCODONE/APAP 5/325MG 1 EACH TABLET PO PRN (16:00)
[2020-04-16] MEDS ORDERED: MAG HYDROX/AL HYDROX/SIMETH 30 ML UDC PO PRN (16:00)
[2020-04-16] MEDS ORDERED: ZOLPIDEM TARTRATE 5 MG TABLET PO PRN (16:00)
--- NOTE | 2020-04-16 16:25 | NUR ---
report given to Katrina GUZMAN for gordon
[2020-04-16 17:00] VITALS: BP 102/60
--- NOTE | 2020-04-16 17:00 | NUR ---
RN ADMITTING NOTE Patient received from ER. Patient is A/O x1-2, surinamese/montenegrin speaking, showing no signs of acute distress or SOB, stable on RA. Patient has no complaints of pain at this time. Vital signs BP 102/60, HR 93, SpO2 94% on RA, RR 18 T 98.4. IV line in the LFA#20g is clean and intact, flushing well. SKin assessed, photos taken and placed in chart. Bed is in lowest position, side rails x3 in upright position, call light is within reach. Fall safety and aspiration precautions enforced. Will continue with admitting orders.
[2020-04-16] MEDS: IV NS 0.9% 1,000 ML IV PRN (18:19)
[2020-04-16 18:58] VITALS: BP 102/60
--- NOTE | 2020-04-16 19:16 | NUR ---
MS RN: RECEIVED PATIENT Patient in bed, awake, A/O x2, forgetful. IVF infusing, NPO denies abdominal pain. Right Ileostomy intact, pouch in place with soft stool. Fall; skin precaution maintained.
--- NOTE | 2020-04-16 19:23 | NUR ---
RN CLOSING NOTE Patient received from ER. Patient is A/O x1-2, dominican/swedish speaking, showing no signs of acute distress or SOB, stable on RA. Patient has no complaints of pain at this time. Ileostomy emptied out with 300ml yellow liquid BM and air. IV line in the LFA#20g is clean and intact, running NS @ 100mls/.hr. All patient needs met. Bed is in lowest position, side rails x3 in upright position, call light is within reach. Fall safety and aspiration precautions enforced. Will endorse to third shift lieutenant.
[2020-04-16 20:00] VITALS: BP 122/66
[2020-04-16 20:15] VITALS: BP 122/66
[2020-04-17] MEDS: IV NS 0.9% 1,000 ML IV PRN ×2 (04:32→18:09)
[2020-04-17] MEDS: MORPHINE SULFATE INJ 2 MG/ML DISP.SYRIN IV PRN (05:33)
--- NOTE | 2020-04-17 07:00 | NUR ---
MS RN: END OF SHIFT REPORT Patient in bed, awake. NPO IVF infusing. Abdominal pain managed with PRN Morphine with relief. Right ileostomy, pouch changed, small amt of stool soft and liquid. Plan for surgery consult. Will endorse to oncoming RN.
--- NOTE | 2020-04-17 07:45 | NUR ---
MS RN OPENING NOTE PATIENT IN BED RESTING COMFORTABLY. PATIENT IN NO ACUTE DISTRESS. NO SOB NOTED. PATIENT BREATHING IS EVEN AND UNLABORED. PATIENT SAFETY PRECAUTIONS IN PLACE. PATIENT BED ALARM IS ON. PATIENT BED IS LOCKED AND IN LOWEST POSITION. CALL LIGHT WITHIN REACH. WILL CONTINUE TO MONITOR.
[2020-04-17 08:00] VITALS: BP 111/62
[2020-04-17 08:58] LABS: BASOPHILS % (AUTO) 0.3 % (0.0-2.0); EOSINOPHILS % (AUTO) 1.1 % (0.0-6.0); HEMATOCRIT 36 % (33-45); HEMOGLOBIN 11.5 g/dL (11.5-14.8); LYMPHOCYTES # (AUTO) 1.3 /CMM (0.8-4.8); LYMPHOCYTES % (AUTO) 16.2 % (20.0-44.0); MEAN CORPUSCULAR HGB CONC 32 g/dl (31.0-36.0); MEAN CORPUSCULAR VOLUME 89 fL (82-100); MONOCYTES # (AUTO) 0.6 /CMM (0.1-1.30); MONOCYTES % (AUTO) 8.2 % (2.0-12.0); NEUTROPHILS # (AUTO) 5.9 /CMM (1.8-8.9); NEUTROPHILS % (AUTO) 74.2 % (43.0-81.0); PLATELET COUNT (AUTO) 305 /CMM (150-450); RED BLOOD CELL COUNT(AUTO) 4.04 MIL/uL (4.0-5.2); WHITE BLOOD COUNT (AUTO) 7.9 K/uL (4.3-11.0)
[2020-04-17 09:02] LABS: CALCIUM, SERUM 8.9 mg/dL (8.5-10.1); CARBON DIOXIDE 23 mmol/L (21-32); CHLORIDE 105 mmol/L (98-107); CREATININE 1.4 mg/dL (0.6-1.3); GLUCOSE 99 mg/dL (74-106); LIPASE 445 U/L (73-393); MAGNESIUM 1.7 mg/dL (1.8-2.4); PHOSPHORUS 3.3 mg/dL (2.5-4.9); POTASSIUM 4.7 mmol/L (3.5-5.1); SODIUM SERUM 136 mmol/L (136-145); UREA NITROGEN, BLOOD 37 mg/dL (7-18)
[2020-04-17 11:59] LABS: CHOLESTEROL 167 mg/dL (<200); HDL CHOLESTEROL 20 mg/dL (40-60); LDL 108 mg/dL (0-99); TRIGLYCERIDES 264 mg/dL (30-150)
[2020-04-17] MEDS: Magnesium 1GM/D5W 100ML PREMIX 100 ML IV SCH ×2 (12:19→13:20)
--- NOTE | 2020-04-17 14:45 | NUR ---
MS RN NOTE SPOKE WITH DR. JARRELL ABOUT CONTINUING HOME MEDICATIONS. PER MD WILL TAKE CARE OF MED RECON.
--- NOTE | 2020-04-17 14:54 | NUR ---
MS RN NOTE VTE SCORE [address] JARRELL IF MD WANTS TO PLACE PATIENT ON ANTICOAGULANT THERAPY. PER DR. JARRELL ORDER FOR HEPARIN SQ 5000 UNITS Q12H.
--- NOTE | 2020-04-17 15:15 | NUR ---
MS RN NOTE INFORMED JIMI WILDERNESS GUIDE THAT PATIENT TOLERATED CLEAR LIQUID DIET WELL FOR LUNCH. PER JIMI PINEDA TO ADVANCE DIET TO LOW FAT DIET.
[2020-04-17 16:00] VITALS: BP 117/69
[2020-04-17] MEDS ORDERED: FOLIC ACID PO SCH (17:00)
[2020-04-17] MEDS ORDERED: LUT PO SCH (17:00)
[2020-04-17] MEDS ORDERED: MV FE OTHER MIN PO SCH (17:00)
[2020-04-17] MEDS ORDERED: [UNRECOGNIZED DRUG - OTHER] PO SCH (17:00)
[2020-04-17] MEDS: MEMANTINE HCL 5 MG TABLET PO SCH (17:53)
--- NOTE | 2020-04-17 18:00 | NUR ---
MS RN NOTE PATIENT TOLERATING DINNER LOW FAT DIET WELL. PATIENT COMPLAINS OF NO STOMACH PAIN AT THIS TIME.
--- NOTE | 2020-04-17 18:29 | NUR ---
MS RN CLOSING NOTE PATIENT IN BED RESTING COMFORTABLY. PATIENT IN NO ACUTE DISTRESS. NO SOB NOTED. PATIENT BREATHING IS EVEN AND UNLABORED. PATIENT SAFETY PRECAUTIONS IN PLACE. PATIENT BED ALARM IS ON. PATIENT KEPT CLEAN, DRY AND COMFORTABLE THROUGHOUT SHIFT. PATIENT BED IS LOCKED AND IN LOWEST POSITION. CALL LIGHT WITHIN REACH. WILL ENDORSE CARE TO PM SHIFT FOR VENUS.
--- NOTE | 2020-04-17 19:28 | NUR ---
MS RN: RECEIVED PATIENT Patient in bed, awake, adequate Oxygenation on room air, denies SOB. Right ileostomy in place with brown liquid stool. IVF infusing, tolerating Clear liquids diet per report by MEGAN Patton/dana Primary nurse. Fall precaution maintained.
[2020-04-17 20:00] VITALS: BP 107/60
[2020-04-17 20:22] VITALS: BP 107/60
[2020-04-17] MEDS: HEPARIN SODIUM, PORCINE 5000 UNITS/1 ML VIAL SQ SCH (21:17)
[2020-04-17] MEDS: MAGNESIUM OXIDE 400 MG TABLET PO SCH (21:20)
[2020-04-18] MEDS: IV NS 0.9% 1,000 ML IV PRN ×2 (03:48→17:58)
--- NOTE | 2020-04-18 06:37 | NUR ---
MS RN: END OF SHIFT REPORT Patient in bed, awake. IVF infusing Low fat diet, no c/o nausea, no vomiting. Right ileostomy, pouch changed, denies abdominal pain. Patient wants to go home, slept well. No acute events overnight. Will endorse to oncoming RN.
--- NOTE | 2020-04-18 07:30 | NUR ---
MS/RN OPENING NOTES RECEIVED PATIENT AWAKE ON BED. NO RESPIRATORY DISTRESS NOTED. DENIES PAIN AT THIS TIME. IV ACCESS AT LEFT FOREARM # 20 G WITH IV FLUID OF NS 1L AT 100 ML/HR ON AND INFUSING WELL. BED IN LOW POSITION AND LOCKED, SIDE RAILS UP X2. CALL LIGHT IN REACH, WILL CONTINUE TO MONITOR.
[2020-04-18 07:40] LABS: BASOPHILS % (AUTO) 0.6 % (0.0-2.0); EOSINOPHILS % (AUTO) 1.9 % (0.0-6.0); HEMATOCRIT 36 % (33-45); HEMOGLOBIN 11.5 g/dL (11.5-14.8); LYMPHOCYTES # (AUTO) 1.2 /CMM (0.8-4.8); MEAN CORPUSCULAR HGB CONC 32 g/dl (31.0-36.0); MEAN CORPUSCULAR VOLUME 88 fL (82-100); MONOCYTES # (AUTO) 0.6 /CMM (0.1-1.30); MONOCYTES % (AUTO) 9.5 % (2.0-12.0); NEUTROPHILS # (AUTO) 4.4 /CMM (1.8-8.9); PLATELET COUNT (AUTO) 290 /CMM (150-450); RED BLOOD CELL COUNT(AUTO) 4.04 MIL/uL (4.0-5.2); WHITE BLOOD COUNT (AUTO) 6.3 K/uL (4.3-11.0)
[2020-04-18 07:48] LABS: CALCIUM, SERUM 9.1 mg/dL (8.5-10.1); PHOSPHORUS 2.4 mg/dL (2.5-4.9)
[2020-04-18 08:00] VITALS: BP 153/87
[2020-04-18] MEDS: DONEPEZIL 5 MG TABLET PO SCH (08:31)
[2020-04-18] MEDS: MULTIVITAMINS,THERAGRAN 1 UDTAB TABLET PO SCH (08:32)
[2020-04-18] MEDS: CHOLECALCIFEROL 1,000 UNIT TABLET (VIT D3) PO SCH (08:32)
[2020-04-18] MEDS: MEMANTINE HCL 5 MG TABLET PO SCH ×2 (08:32→17:03)
[2020-04-18] MEDS: HEPARIN SODIUM, PORCINE 5000 UNITS/1 ML VIAL SQ SCH ×2 (08:33→21:13)
[2020-04-18] MEDS ORDERED: K PHOS NEUTRAL 250 MG TABLET PO ONE (11:00)
[2020-04-18 16:00] VITALS: BP_SYST 153; BP_SYST 163; BP_DIAS 82; BP_DIAS 87
--- NOTE | 2020-04-18 19:30 | NUR ---
MS RN OPENING NOTES: RECEIVED PATIENT IN BED, AWAKE, A/O X3. NO SOB NOTED. NO COMPLAIN OF PAIN. HOB ELEVATED AT 30DEGREES. WITH ILEOSTOMY AT RLQ INTACT NO LEAKING, WITH THE OUTPUT OF WATERY, LIGHT BROWNISH COLOR. WITH MID-ABDOMEN HEALED SURGICAL SCAR. CALL LIGHT WITHIN REACH. BED ALARM ON. BED IN LOWEST AND LOCKED POSITION.
--- NOTE | 2020-04-18 19:47 | NUR ---
MS/RN CLOSING NOTES PATIENT IS ON BED. DENIES PAIN AT THIS TIME. PATIENT IS ON ROOM AIR BREATHING REGULAR AND UNLABORED. NO RESPIRATORY DISTRESS NOTED. IV ACCESS AT LEFT FOREARM # 20 G WITH IV FLUID OF NS 1L AT 100 ML/HR ON AND INFUSING WELL. SEEN AND EXAMINED BY MD WITH ORDERS MADE AND CARRIED OUT. ALL DUE MEDICATION WAS GIVEN. CHECKED PATIENT EVERY 2 HOURS. BED IN LOW POSITION AND LOCKED, SIDE RAILS UP X2. CALL LIGHT WITHIN REACH, WILL ENDORSED TO OFFICE WORKFORCE PLANNER FOR VENUS.
[2020-04-18 20:00] VITALS: BP 137/84
[2020-04-18] MEDS: MAGNESIUM OXIDE 400 MG TABLET PO SCH (21:13)
[2020-04-19] MEDS: IV NS 0.9% 1,000 ML IV PRN ×2 (04:24→13:13)
--- NOTE | 2020-04-19 06:31 | NUR ---
MS RN CLOSING NOTES: PATIENT IN BED, AWAKE, A/O X3. NO SOB NOTED. NO COMPLAIN OF PAIN DURING THE SHIFT. CALL LIGHT WITHIN REACH, BED IN LOWEST AND LOCKED POSITION. WITH RIGHT LOWER ILEOSTOMY INTACT, NO LEAKAGE NOTED, DRAINED 50 ML OUTPUT. RESTED THROUGHOUT THE NIGHT.
[2020-04-19 08:00] VITALS: BP 152/72
--- NOTE | 2020-04-19 08:00 | NUR ---
MS RN OPENING NOTE RECEIVED PATIENT IN BED, AWAKE, A/O X3. NO CARDIAC OR RESPIRATORY DISTRESS NOTED. NO SOB NOTED. SATURATING WELL ON ROOM AIR, NO COMPLAIN OF PAIN OR DISCOMFORT. PT NOTED WITH ILEOSTOMY AT RLQ INTACT NO LEAKING, WITH THE OUTPUT OF WATERY, LIGHT BROWNISH COLOR. DRESSING AND BAG INTACT. WITH MID-ABDOMEN HEALED SURGICAL SCAR. IV ACCESS NOTED ON L FOREARM G20. INTACT AND PATENT AND FLUSHING WELL. NO S/S OF INFECTION OR INFILTRATION NOTED. SAFETY PRECAUTIONS IN PLACE. BED LOCKED AND IN LOW POSITION. SIDE RAILS UP. BED ALARM ON. CALL LIGHT WITHIN REACH. WILL CONT TO MONITOR.
[2020-04-19 08:31] LABS: CALCIUM, SERUM 8.5 mg/dL (8.5-10.1); CREATININE 0.8 mg/dL (0.6-1.3); MAGNESIUM 1.5 mg/dL (1.8-2.4); PHOSPHORUS 2.7 mg/dL (2.5-4.9); POTASSIUM 3.8 mmol/L (3.5-5.1)
[2020-04-19] MEDS: MULTIVITAMINS,THERAGRAN 1 UDTAB TABLET PO SCH (08:32)
[2020-04-19] MEDS: CHOLECALCIFEROL 1,000 UNIT TABLET (VIT D3) PO SCH (08:32)
[2020-04-19] MEDS: MEMANTINE HCL 5 MG TABLET PO SCH ×2 (08:32→16:19)
[2020-04-19] MEDS: DONEPEZIL 5 MG TABLET PO SCH (08:32)
[2020-04-19 08:33] LABS: BASOPHILS % (AUTO) 0.5 % (0.0-2.0); EOSINOPHILS % (AUTO) 1.4 % (0.0-6.0); HEMATOCRIT 32 % (33-45); HEMOGLOBIN 10.5 g/dL (11.5-14.8); LYMPHOCYTES # (AUTO) 1.2 /CMM (0.8-4.8); LYMPHOCYTES % (AUTO) 18.8 % (20.0-44.0); MEAN CORPUSCULAR HGB CONC 33 g/dl (31.0-36.0); MEAN CORPUSCULAR VOLUME 88 fL (82-100); MONOCYTES # (AUTO) 0.6 /CMM (0.1-1.30); MONOCYTES % (AUTO) 8.5 % (2.0-12.0); NEUTROPHILS # (AUTO) 4.7 /CMM (1.8-8.9); NEUTROPHILS % (AUTO) 70.8 % (43.0-81.0); PLATELET COUNT (AUTO) 270 /CMM (150-450); RED BLOOD CELL COUNT(AUTO) 3.64 MIL/uL (4.0-5.2); WHITE BLOOD COUNT (AUTO) 6.6 K/uL (4.3-11.0)
[2020-04-19] MEDS: HEPARIN SODIUM, PORCINE 5000 UNITS/1 ML VIAL SQ SCH (08:33)
[2020-04-19] MEDS: Magnesium 1GM/D5W 100ML PREMIX 100 ML IV SCH ×2 (10:24→11:35)
[2020-04-19] MEDS: MORPHINE SULFATE INJ 2 MG/ML DISP.SYRIN IV PRN (15:25)
[2020-04-19 16:00] VITALS: BP 156/91
--- NOTE | 2020-04-19 19:28 | NUR ---
D/C TO [facility] PT PICKED UP BY 2 EMT'S GOING TO [facility]. INSTABLE CONDITION. NO CARDIAC OR RESPIRATORY DISTRESS NOTED. NO SOB NOTED. SATURATING WELL ON ROOM AIR, NO COMPLAIN OF PAIN OR DISCOMFORT. NOTED WITH ILEOSTOMY AT RLQ INTACT NO LEAKING, WITH THE OUTPUT OF WATERY, LIGHT BROWNISH COLOR. DRESSING AND BAG INTACT. WITH MID-ABDOMEN HEALED SURGICAL SCAR. IV ACCESS NOTED ON L FOREARM REMOVED. NO BLEEDING NOTED.
== END 2020-04-19 19:30 | DRG 282 ==
LOC: ER 11:23 → TELE 16:17 → MED 20:41
PROVIDERS: ADMIT Student in an Organized Health Care Education/Training Program; ATTEND Student in an Organized Health Care Education/Training Program
DX: K85.90 Acute pancreatitis without necrosis or infection, unspecified (principal); K55.069 Acute infarction of intestine, part and extent unspecified; N17.0 Acute kidney failure with tubular necrosis; E44.1 Mild protein-calorie malnutrition; E83.42 Hypomagnesemia; E11.9 Type 2 diabetes mellitus without complications; D64.9 Anemia, unspecified; E87.1 Hypo-osmolality and hyponatremia; K62.9 Disease of anus and rectum, unspecified; F03.90 Unspecified dementia, unspecified severity, without behavioral disturbance, psychotic disturbance, mood disturbance, and anxiety; I10 Essential (primary) hypertension; E87.2 Acidosis; E86.1 Hypovolemia; Z90.49 Acquired absence of other specified parts of digestive tract; Z93.3 Colostomy status; Z87.11 Personal history of peptic ulcer disease; E78.5 Hyperlipidemia, unspecified
CPT/HCPCS: 36415; 80048-TC; 80061-TC; 80076-TC; 83605-TC; 83690-TC; 83735-TC; 84100-TC; 85025-TC; 87081-TC; A6403; G0378; J1644; J2270; J2405; J3475; J7030; U0003-CS

== ENCOUNTER 2020-05-02 13:57 | Inpatient (IN) | payer OTHER ==
--- NOTE | 2020-05-01 21:00 | NUR ---
MS GUZMAN HEAD TO TOE ASSESSMENT IS DONE. PT NO C/O OF DISTRESS AT THIS TIME. Addendum: 05/03/20 at 0354 by MARILU VALE RN MISTAKEN ENTRY THIS ENTRY IS FOR 05/02/2020 2100
--- NOTE | 2020-05-01 22:29 | NUR ---
SOPHIA GUZMAN PT SEEN BY DR. JONES WITH NEW ORDERS OF IVF D5NS @ 75 MLS/HR CHARGE NURSE PAGED HOSPITALIST CLARIFIED STANDING ORDER OF NS IVF 0.9% NS @ 200 MLS/HR IF HE WANTED TO DC PER HOSPITALIST DC IVF NS @ 200ML/HR. NOTED AND CARRIED OUT Addendum: 05/03/20 at 0426 by MARILU VALE RN MISTAKEN ENTRY THIS ENTRY IS FOR 05/02/2020 6086
[~2020-05-02] VITALS: Ht 162.6 cm; Wt 62.2 kg
[~2020-05-02 13:57] MED LIST changes: -AMLO10TA7 PO; -AMOX500T2 PO; -CLAR-45 PO; +FOLI1TAB25 PO; -MAGN400O6 PO; +MAGN400T26 PO; +MEGE400O4 PO; +METF-440 PO; -METH4TAB3 PO; +MULT-24 PO; -SITA100T PO; -VALS160T2 PO; +VALS40TA4 PO
--- NOTE | 2020-05-02 14:00 | NUR ---
PT BIBA RA 102 From [facility] "Abdo ricky Pain, Hypotension SBP70" PT IS AAOX1, NOT IN RESPIRATORY DISTRESS, HOOKED TO CARDIAN MONITOR, KEPT RESTED AND COMFORTABLE, WILL CONTINUE TO MONITOR.
--- NOTE | 2020-05-02 14:10 | NUR ---
IV LINE ESTABLISHED BLOOD DRAWN AND SENT TO LAB.
--- NOTE | 2020-05-02 14:15 | NUR ---
PT SEEN AND EXAMINED BY .
[2020-05-02] MEDS ORDERED: IV NS 0.9% 1,000 ML BAG IV ONE (14:30)
--- NOTE | 2020-05-02 14:38 | NUR ---
RECONCILIATION MACHINE OPERATOR AT BEDSIDE FOR XRAY.
--- NOTE | 2020-05-02 14:42 | NUR ---
URINE SPECIMEN COLLECTED AND SENT TO LAB.
[2020-05-02 15:11] LABS: BASOPHILS % (AUTO) 0.3 % (0.0-2.0); EOSINOPHILS % (AUTO) 0.1 % (0.0-6.0); HEMATOCRIT 44 % (33-45); HEMOGLOBIN 14.1 g/dL (11.5-14.8); LYMPHOCYTES # (AUTO) 1.5 /CMM (0.8-4.8); LYMPHOCYTES % (AUTO) 12.8 % (20.0-44.0); MEAN CORPUSCULAR HGB CONC 32 g/dl (31.0-36.0); MEAN CORPUSCULAR VOLUME 90 fL (82-100); MONOCYTES # (AUTO) 0.5 /CMM (0.1-1.30); MONOCYTES % (AUTO) 3.8 % (2.0-12.0); NEUTROPHILS # (AUTO) 9.9 /CMM (1.8-8.9); PLATELET COUNT (AUTO) 310 /CMM (150-450); RED BLOOD CELL COUNT(AUTO) 4.88 MIL/uL (4.0-5.2)
[2020-05-02 15:19] LABS: BILIRUBIN,URINE SMALL (NEGATIVE); BLOOD, URINE Negative Ery/uL (NEGATIVE); KETONES,URINE Negative (NEGATIVE); LEUKOCYTE ESTERASE ,URINE Negative (NEGATIVE); NITRITE, URINE Negative (NEGATIVE); PROTEIN,URINE Trace mg/dl (NEGATIVE); UGLUCOSE Negative (NEGATIVE); UROBILINOGEN,URINE 0.2 EU/dL (0.2)
[2020-05-02 15:21] LABS: APPEARANCE,URINE Slightly Cloudy (CLEAR); COLOR,URINE DARK YELLOW (YELLOW)
[2020-05-02 15:36] LABS: ALANINE AMINOTRANSFERASE 58 U/L (12-78); ALKALINE PHOSPHATASE 110 U/L (46-116); ASPARTATE AMINOTRANSFERASE 43 U/L (15-37); BILIRUBIN,DIRECT 0.2 mg/dL (0.0-0.2); BILIRUBIN,TOTAL 0.6 mg/dL (0.2-1.0); CARBON DIOXIDE 11 mmol/L (21-32); CHLORIDE 94 mmol/L (98-107); GLUCOSE 158 mg/dL (74-106); LIPASE 1199 U/L (73-393); SODIUM SERUM 131 mmol/L (136-145); TOTAL PROTEIN, SERUM 8.6 g/dL (6.4-8.2)
--- NOTE | 2020-05-02 15:39 | NUR ---
CALLED [facility], PER NURSING STAFF PT WAS LAST TESTED FOR COVID-19 2 WEEKS AGO WITH NEG RESULTS, AND THAT CURRENTLY THEY HAVE ZERO POSITIVE COVID-19 PT IN THEIR FACILITY.
[2020-05-02 15:48] LABS: POTASSIUM 7.2 mmol/L (3.5-5.1)
[2020-05-02 15:49] LABS: CREATININE 12.3 mg/dL (0.6-1.3); UREA NITROGEN, BLOOD 103 mg/dL (7-18)
[2020-05-02] MEDS ORDERED: SODIUM BICARBONATE SYR 50 MEQ/50 ML DISP.SYRIN ONE (15:55)
[2020-05-02] MEDS ORDERED: DEXTROSE 50%-WATER 50 ML DISP.SYRIN ONE (15:56)
[2020-05-02] MEDS ORDERED: INSULIN REGULAR, HUMAN 100 UNIT/ML 10 ML VIAL ONE (15:56)
[2020-05-02] MEDS ORDERED: VANCOMYCIN 1 GM in IV D5W 250 ML IV ONE (16:00)
[2020-05-02] MEDS ORDERED: PIPERACILLIN /TAZOBACTAM 3.375 G in IV D5W 50 ML IV ONE (16:00)
[2020-05-02] MEDS ORDERED: INSULIN REGULAR, HUMAN 100 UNIT/ML 10 ML VIAL IV ONE (16:00)
[2020-05-02] MEDS ORDERED: SODIUM BICARBONATE SYR 50 MEQ/50 ML DISP.SYRIN IV ONE (16:00)
[2020-05-02] MEDS ORDERED: DEXTROSE 50%-WATER 50 ML DISP.SYRIN IVP ONE (16:00)
[2020-05-02] MEDS ORDERED: IV NS 0.9% 500 ML BAG IV ONE (16:00)
[2020-05-02 16:05] LABS: BACTERIA,URINE None seen /HPF (None Seen); RBC,URINE 0-2 /HPF (0-2); SQUAMOUS EPITHELIAL CELL,UR Few /HPF (None Seen); WBC,URINE 0-2 /HPF (0-3)
--- NOTE | 2020-05-02 16:08 | NUR ---
PT IS WHEELED TO CT SCAN VIA [facility].
--- NOTE | 2020-05-02 16:52 | NUR ---
PAGED STAR HERNANDEZ
--- NOTE | 2020-05-02 17:45 | NUR ---
REPORT GIVEN TO MEGAN CACERES FOR VENUS.
--- NOTE | 2020-05-02 18:15 | NUR ---
TELE/RN NOTE THE PATIENT IS RECEIVED ON A GURNEY FROM ER. TRANSFERRED THE PATIENT TO BED. THE PATIENT ABLE TO MAKE NEEDS KNOWN VERBALLY. SPEAKS BELARUSIAN. THE PATIENT ALERT AND ORIENTED X2. IN ROOM AIR AND DENIES SOB. RESPIRATION REGULAR AND UNLABORED. DENIES PAIN. THE PATIENT IN NO APPARENT DISTRESS. RFA G 20 AND LAC G 20 BOTH PATENT AND SALINE LOCKED. EXTERNAL TELE BOX APPLIED. BED LOW AND LOCKED. SIDE RAILS UP X3. CALL LIGHT WITHIN REACH. WILL CONTINUE TO MONITOR.
--- NOTE | 2020-05-02 18:45 | NUR ---
TELE/RN NOTE TOMMIE HERNANDEZ IS MADE AWARE OF ABNORMAL POTASSIUM RESULT. NO NEW ORDERS AT THIS TIME. THE PATIENT IN NO APPARENT DISTRESS. EXTERNAL TELE BOX READING IS SINUS RHYTHM 92.
[2020-05-02] MEDS ORDERED: ZOLPIDEM TARTRATE 5 MG TABLET PO PRN (19:00)
[2020-05-02] MEDS ORDERED: Z GUARD REMEDY 2 OZ OINT TP PRN (19:00)
[2020-05-02] MEDS ORDERED: ONDANSETRON HCL/PF 4 MG/2 ML VIAL IVP PRN (19:00)
[2020-05-02] MEDS ORDERED: DEXTROSE 50%-WATER 50 ML DISP.SYRIN IV PRN (19:00)
[2020-05-02] MEDS ORDERED: ACETAMINOPHEN 325 MG TABLET PO PRN (19:00)
[2020-05-02] MEDS ORDERED: HYDROCODONE/APAP 5/325MG 1 EACH TABLET PO PRN (19:00)
[2020-05-02] MEDS ORDERED: IV NS 0.9% 1,000 ML IV PRN (19:00)
--- NOTE | 2020-05-02 19:15 | NUR ---
TELE/RN NOTE ENDORSEMENT TO THE DYNAMIC ETCHING PROCESSOR GIVEN.
--- NOTE | 2020-05-02 19:30 | NUR ---
MS RN ADMINISTERED NS ORDERED RUNNING @ 200 MLS HR. WILL CONT TO MONITOR
--- NOTE | 2020-05-02 19:33 | NUR ---
WEIGHT LOSS COUNSELOR RECEIVE PT IN BED, A/O X 1, STABLE AND NOT IN DISTRESS, WILL CONT TO MONITOR
[2020-05-02 20:00] VITALS: BP 113/56
--- NOTE | 2020-05-02 20:00 | NUR ---
INDEPENDENT TRADERASSOCIATE DIRECTOR CAREER SERVICES NURSE AWARE ICU STATUS IN FLOOR. ASSISTANT STATISTICIAN MADE AWARE Addendum: 05/03/20 at 0417 by MARILU VALE RN AWAITING BED IN ICU UNIT
[2020-05-02 20:16] LABS: CALCIUM, SERUM 8.5 mg/dL (8.5-10.1); CARBON DIOXIDE 15 mmol/L (21-32); CHLORIDE 100 mmol/L (98-107); GLUCOSE 159 mg/dL (74-106); POTASSIUM 4.9 mmol/L (3.5-5.1); SODIUM SERUM 135 mmol/L (136-145)
[2020-05-02 20:25] LABS: UREA NITROGEN, BLOOD 92 mg/dL (7-18)
[2020-05-02 20:26] LABS: CREATININE 9.1 mg/dL (0.6-1.3)
[2020-05-02 21:00] VITALS: BP 108/55
--- NOTE | 2020-05-02 21:00 | NUR ---
ADMINISTRATIVE ACCOUNTANT HEAD TO TOE ASSESSMENT IS DONE. PT NO C/O OF DISTRESS AT THIS TIME.
[2020-05-02 22:00] VITALS: BP 99/61
--- NOTE | 2020-05-02 22:29 | NUR ---
STOCK CHECKERER PT SEEN BY DR. JONES WITH NEW ORDERS OF IVF D5NS @ 75 MLS/HR CHARGE NURSE PAGED HOSPITALIST CLARIFIED STANDING ORDER OF NS IVF 0.9% NS @ 200 MLS/HR IF HE WANTED TO DC PER HOSPITALIST DC IVF NS @ 200ML/HR. NOTED AND CARRIED OUT
[2020-05-02] MEDS: IV D5/ 0.9% NACL 1,000 ML IV PRN (22:41)
[2020-05-02 23:00] VITALS: BP 101/52
[2020-05-02] MEDS: BLOOD SUGAR DIAGNOSTIC 1 EACH STRIP IN SCH (23:38)
[2020-05-02] MEDS: INSULIN REGULAR, HUMAN 100 UNIT/ML 3 ML VIAL SQ PRN (23:39)
[2020-05-03] VITALS (17 sets, daily range): BP systolic 85–111; BP diastolic 51–68
[2020-05-03] MEDS ORDERED: ZOSYN IVPB 3.375 G in IV D5W 50ml IV SCH ×2
[2020-05-03] MEDS ORDERED: PIPERACILLIN /TAZOBACTAM 3.375 G in IV D5W 50 ML IV SCH ×2
--- NOTE | 2020-05-03 02:40 | NUR ---
PER HOSPITALIST OK TO ICE CHIPS
--- NOTE | 2020-05-03 02:40 | NUR ---
PER HOSPITALIST PUT BACK TO ICU STATUS FROM TELE TD CHARGE NURSE AWARE
--- NOTE | 2020-05-03 03:30 | NUR ---
RN NOTE: RECEIVED REPORT FROM MARILU GUZMAN. PATIENT TRANSFERRED TO ICU VIA ACLS FOR CLOSE MONITORING. PATIENT IS AAOX2. ABLE TO MAKE NEEDS KNOWN. NO RESPIRATORY DISTRESS. PLACED ON O2 AT 2LPM. NO C/O PAIN. HOOKED TO BEDSIDE MONITOR. PATIENT NOTED WITH ILEOSTOMY WITH MINIMAL OUTPUT. NO URINE AT THIS TIME. CALL LIGHT PLACED WITHIN REACH. WILL CONT. TO MONITOR.
--- NOTE | 2020-05-03 03:30 | NUR ---
BOX MACHINE OPERATOR PT TRANSFERRED TO ICU 262-1 VIA ACLS PROTOCOL (BED) PT STABLE CONDITION REPORT GIVEN TO PRODUCTION HAND. PT SR 88'S-95 HR TELE MONITOR. ON CARDIAC MONITORING, NO S/S OF DISTRESS
--- NOTE | 2020-05-03 03:31 | NUR ---
CIRCUIT BREAKER ASSEMBLER ENDORSE TO PALLETIZER TO COLLECT STOOL AND ANOTHER URINE AT THIS TIME.
[2020-05-03] MEDS ORDERED: MEROPENEM 500 MG in IV NS 0.9% 50 ML IV SCH (05:00)
[2020-05-03 05:13] LABS: CALCIUM, SERUM 8.8 mg/dL (8.5-10.1); CARBON DIOXIDE 22 mmol/L (21-32); CHLORIDE 104 mmol/L (98-107); GLUCOSE 147 mg/dL (74-106); POTASSIUM 4.5 mmol/L (3.5-5.1); SODIUM SERUM 140 mmol/L (136-145)
[2020-05-03 05:18] LABS: CREATININE 7.9 mg/dL (0.6-1.3); UREA NITROGEN, BLOOD 92 mg/dL (7-18)
[2020-05-03 05:25] LABS: BASOPHILS % (AUTO) 0.3 % (0.0-2.0); EOSINOPHILS % (AUTO) 0.4 % (0.0-6.0); HEMATOCRIT 38 % (33-45); HEMOGLOBIN 12.3 g/dL (11.5-14.8); LYMPHOCYTES # (AUTO) 1.4 /CMM (0.8-4.8); LYMPHOCYTES % (AUTO) 15.3 % (20.0-44.0); MEAN CORPUSCULAR HGB CONC 32 g/dl (31.0-36.0); MEAN CORPUSCULAR VOLUME 89 fL (82-100); MONOCYTES # (AUTO) 0.7 /CMM (0.1-1.30); MONOCYTES % (AUTO) 8.1 % (2.0-12.0); NEUTROPHILS % (AUTO) 75.9 % (43.0-81.0); PLATELET COUNT (AUTO) 239 /CMM (150-450); RED BLOOD CELL COUNT(AUTO) 4.28 MIL/uL (4.0-5.2); WHITE BLOOD COUNT (AUTO) 9.2 K/uL (4.3-11.0)
[2020-05-03] MEDS ORDERED: MEROPENEM 500 MG VIAL IV ONE (06:24)
[2020-05-03] MEDS: BLOOD SUGAR DIAGNOSTIC 1 EACH STRIP IN SCH ×3 (06:42→18:00)
[2020-05-03] MEDS: INSULIN REGULAR, HUMAN 100 UNIT/ML 3 ML VIAL SQ PRN ×3 (06:46→18:01)
--- NOTE | 2020-05-03 07:00 | NUR ---
RN CLOSING NOTES: PATIENT IN STABLE CONDITION. STOOL SPECIMEN FOR CDIFF COLLECTED AND DROPPED OFF TO LAB. URINE SPECIMEN STILL PENDING. ASKED PATIENT IF SHE WANTS PHILLIP CATH INSERTED, PATIENT DECLINED, OFFERED RISKS AND BENEFITS. ENDORSED TO AM RN FOR CONTINUITY OF CARE.
--- NOTE | 2020-05-03 07:05 | NUR ---
RN NOTES RECEIVED PT ON BED, ALERT/ ORIENTED x2, ABLE TO MAKE NEEDS KNOWN.NO DISTRESS NOTED, VSS STABLE, ILEOSTOMY WITH MINIMAL GREENISH LIQUID OUTPUT INTACT, D5NS AT 75CC/HR RUNNING VIA L AC IV SITE G 20. R FA IV SITE D/C'S DUE TO SLIGHT REDNESS AT THE SITE , SR UP x3, CALL LIGHT WITHIN EASY REACH, BED LOCKED AND IN LOWEST POSITION, CONTINUE TO MONITOR.
[2020-05-03] MEDS ORDERED: FEE PK DOSING 1 MIN EA MC ONE ×2 (07:07)
--- NOTE | 2020-05-03 08:00 | NUR ---
RN NOTES PT IS INCONTINENT OF URINE, ORDER RECEIVED FROM DR MITCHELL TO INSERT PHILLIP FOR ACCURATE I&O'S . PHILLIP INSERTED 500 CC CLEAR YELLOW URINE DRAINED .
[2020-05-03 08:27] LABS: ALBUMIN 3.2 g/dL (3.4-5.0); BILIRUBIN,DIRECT 0.2 mg/dL (0.0-0.2); BILIRUBIN,TOTAL 0.8 mg/dL (0.2-1.0); MAGNESIUM 1.8 mg/dL (1.8-2.4); PHOSPHORUS 7.5 mg/dL (2.5-4.9); TOTAL PROTEIN, SERUM 7.1 g/dL (6.4-8.2)
--- NOTE | 2020-05-03 11:20 | NUR ---
RN NOTES PT TRANSFERRED TO ROOM 322-2 TELE STATUS VIA ACLS PROTOCOL IN STABLE CONDITION, REPORT GIVEN TO MONICA GUZMAN FOR CONTINUITY OF CARE.
--- NOTE | 2020-05-03 11:30 | NUR ---
RECEIVED PT TRANSFER FROM ICU AND RECEIVED REPORT FROM DELFIN Mitchell PT ALERT AND VERBALLY RESPONSIVE IN CHINESE. PT MOANS OFTEN BUT DENIES SHE IS IN PAIN. PT ABLE TO TOLERATE ICE CHIPS AND HAS ON/OFF EPISODE OF NOT BEING ABLE TO FEED HERSELF WITH ICE CHIPS EVEN IF SHE IS ABLE TO FEED HERSELF WITH ICE CHIPS ON HER OWN. WITH ILEOSTOMY BAG INTACT ON RT SIDE OF THE ABDOMEN.WITH IVF D5NS AT 75 ML/HR ON THE LFA INFUSING WELL. CHECKED PT'S BLOOD SUGAR WITH 145 RESULT EVEN ON NPO. WILL MONITOR.CALL LIGHT PLACED WITHIN REACH.
--- NOTE | 2020-05-03 13:00 | NUR ---
PT ATE 100% LUNCH ON HER OWN AND WAS ABLE TO TOLERATE IT.KHMER SPEAKING. PT NORMALLY MOANS WHEN TALKING EVEN WHEN DENYING SHE IS IN PAIN.
[2020-05-03] MEDS: IV D5/ 0.9% NACL 1,000 ML IV PRN (13:05)
[2020-05-03] MEDS: IV NS 0.9% 1,000 ML IV PRN (15:30)
[2020-05-03 18:22] LABS: CREATININE, URINE 126.4 MG/DL (30.0-125.0); URINE TOTAL PROTEIN 70.8 mg/dL (0-11.9)
[2020-05-03 19:05] LABS: APPEARANCE,URINE CLEAR (CLEAR); BILIRUBIN,URINE NEGATIVE (NEGATIVE); BLOOD, URINE NEGATIVE Ery/uL (NEGATIVE); COLOR,URINE YELLOW (YELLOW); KETONES,URINE NEGATIVE (NEGATIVE); LEUKOCYTE ESTERASE ,URINE NEGATIVE (NEGATIVE); NITRITE, URINE NEGATIVE (NEGATIVE); PH,URINE 5.5 (5.0-8.0); PROTEIN,URINE NEGATIVE (NEGATIVE); UGLUCOSE 100 MG/DL mg/dL (NEGATIVE); UROBILINOGEN,URINE 0.2 EU/dL (0.2)
[2020-05-03 20:00] LABS: EOSINOPHIL,URINE None Seen
[2020-05-04] VITALS: BP 125/59
[2020-05-04] MEDS: BLOOD SUGAR DIAGNOSTIC 1 EACH STRIP IN SCH ×4 (00:16→17:08)
--- NOTE | 2020-05-04 01:31 | NUR ---
MS/TELE/RN PATIENT IS SLEEPING AT THIS TIME, APPEAR COMFORTABLE, NO SIGNS OF DISTRESS NOTED, CALL LIGHT IN REACH, WILL CONTINUE TO MONITOR.
[2020-05-04 04:00] VITALS: BP 103/69
[2020-05-04] MEDS ORDERED: MEROPENEM 500 MG in IV NS 0.9% 50 ML IV SCH (06:00)
[2020-05-04] MEDS: IV NS 0.9% 1,000 ML IV PRN ×2 (06:06→21:58)
--- NOTE | 2020-05-04 06:30 | NUR ---
MS/TELE/RN PATIENT IS AWAKE, COMFORTABLE, NO C/O PAIN, NO DISTRESS NOTE, CALL LIGHT IN REACH, ALL NEEDS ATTENDED AT THIS TIME, WILL CONTINUE TO MONITOR.
[2020-05-04 06:32] LABS: BASOPHILS % (AUTO) 0.6 % (0.0-2.0); EOSINOPHILS % (AUTO) 2.2 % (0.0-6.0); HEMATOCRIT 36 % (33-45); HEMOGLOBIN 11.5 g/dL (11.5-14.8); LYMPHOCYTES # (AUTO) 1.9 /CMM (0.8-4.8); LYMPHOCYTES % (AUTO) 24.2 % (20.0-44.0); MEAN CORPUSCULAR HGB CONC 32 g/dl (31.0-36.0); MEAN CORPUSCULAR VOLUME 90 fL (82-100); MONOCYTES # (AUTO) 0.7 /CMM (0.1-1.30); MONOCYTES % (AUTO) 9.3 % (2.0-12.0); NEUTROPHILS % (AUTO) 63.7 % (43.0-81.0); PLATELET COUNT (AUTO) 190 /CMM (150-450); RED BLOOD CELL COUNT(AUTO) 3.97 MIL/uL (4.0-5.2); WHITE BLOOD COUNT (AUTO) 7.8 K/uL (4.3-11.0)
[2020-05-04 06:44] LABS: ALANINE AMINOTRANSFERASE 52 U/L (12-78); ALBUMIN 2.9 g/dL (3.4-5.0); ALKALINE PHOSPHATASE 69 U/L (46-116); ASPARTATE AMINOTRANSFERASE 37 U/L (15-37); BILIRUBIN,TOTAL 0.5 mg/dL (0.2-1.0); CALCIUM, SERUM 8.6 mg/dL (8.5-10.1); CARBON DIOXIDE 22 mmol/L (21-32); CHLORIDE 109 mmol/L (98-107); CREATININE 3.3 mg/dL (0.6-1.3); GLUCOSE 95 mg/dL (74-106); LIPASE 496 U/L (73-393); MAGNESIUM 1.6 mg/dL (1.8-2.4); PHOSPHORUS 4.2 mg/dL (2.5-4.9); POTASSIUM 3.6 mmol/L (3.5-5.1); SODIUM SERUM 143 mmol/L (136-145); TOTAL PROTEIN, SERUM 6.4 g/dL (6.4-8.2); UREA NITROGEN, BLOOD 65 mg/dL (7-18)
--- NOTE | 2020-05-04 08:06 | NUR ---
VALIDATION SOFTWARE FACILITATOR OPENING NOTES RECEIVED PT ON BED, A/OX1, ENG/MARTINIQUAIS SPEAKING. RESPIRATION EVEN AND NON LABORED WITH ALBERTO CUTE RESPIRATORY DISTRESS. ABD SOFT AND NON DISTENDED WITH ACTIVE BOWEL SOUNDS, FC YELLOW OUTPUT, ILEOSTOMY WITH DARK GREEN LIQUID OUTPUT, INTACT AND CLEAN. ASSESSED NO S/SX OF PAIN AND DISCOMFORT. SKIN WARM TO TOUCH AND DRY. ON TELE MONITOR SHOWS SR 98. IV SITE AT LEFT WRIST #24 RUNNING NS AT 75 ML/HR. BED IN LOW LOCKED POSITION, SR X2 UP FOR SAFETY. CALL LIGHT WITHIN REACH. WILL CONTINUE POC.
[2020-05-04 08:25] VITALS: BP 137/71
--- NOTE | 2020-05-04 11:04 | NUR ---
MS RN NOTES PT SEEN AND EVALUATED BY STAR HERNANDEZ DNP, ADVANCING DIET PER PROVIDER.
--- NOTE | 2020-05-04 11:06 | NUR ---
M/S RN NOTES MG 1.6 REPORTED TO STAR HERNANDEZ DNP, REPORTED PHARMACY WON'T REPLACE DUE TO HIGH CREATININE. TO REPLACE BY PROVIDER
[2020-05-04] MEDS: INSULIN REGULAR, HUMAN 100 UNIT/ML 3 ML VIAL SQ PRN (11:26)
[2020-05-04] MEDS ORDERED: MAGNESIUM OXIDE 400 MG TABLET PO ONE (11:30)
[2020-05-04] MEDS ORDERED: VANCOMYCIN 1 GM in IV D5W 250 ML IV SCH ×4 (14:00)
[2020-05-04 16:13] VITALS: BP 128/73
[2020-05-04] MEDS: MEROPENEM 500 MG in IV NS 0.9% 50 ML IV SCH (17:09)
--- NOTE | 2020-05-04 18:43 | NUR ---
M/S RN CLOSING NOTES PT A/OX1, NO PRESENCE OF ACUTE RESPIRATORY DISTRESS, SATING 98% RA. ABD SOFT AND NON DISTENDED WITH ACTIVE BOWEL SOUNDS, FC YELLOW OUTPUT, ILEOSTOMY WITH DARK GREEN LIQUID OUTPUT, INTACT AND CLEAN. NO S/SX OF PAIN AND DISCOMFORT. SKIN WARM TO TOUCH AND DRY, NO NEW OPEN SKIN BREAKDOWN. IV SITE AT LEFT FA #24 RUNNING NS AT 75 ML/HR. BED IN LOW LOCKED POSITION, SR X2 UP FOR SAFETY. CALL LIGHT WITHIN REACH. ALL CONCERNS ATTENDED. ENDORSED PT CARE TO NEXT SHIFT,
--- NOTE | 2020-05-04 19:37 | NUR ---
MS RN OPENING NOTES PATIENT AWAKE IN BED. A/OX1. ON RA. NO S/S OF ACUTE RESPIRATORY DISTRESS; BREATHING IS EVEN AND UNLABORED. NO C/O PAIN AT THIS TIME. ILEOSTOMY PRESENT, INTACT & PATENT. PHILLIP CATH PRESENT AND DRAINING WELL. IV PRESENT ON LEFT FA, SIZE 24, INTACT & PATENT, HEP LOCKED. SAFETY MEASURES IN PLACE AND PATIENT'S NEEDS MET. BED LOCKED, ALARM ON, SIDE RAILS X2, CALL LIGHT WITHIN REACH. WILL CONTINUE TO MONITOR.
[2020-05-04 20:00] VITALS: BP 118/62
[2020-05-05] MEDS: BLOOD SUGAR DIAGNOSTIC 1 EACH STRIP IN SCH ×4 (00:22→17:33)
[2020-05-05] MEDS: MEROPENEM 500 MG in IV NS 0.9% 50 ML IV SCH ×2 (06:10→17:34)
[2020-05-05 06:17] LABS: BASOPHILS % (AUTO) 0.5 % (0.0-2.0); EOSINOPHILS % (AUTO) 2.7 % (0.0-6.0); HEMATOCRIT 36 % (33-45); HEMOGLOBIN 11.5 g/dL (11.5-14.8); LYMPHOCYTES # (AUTO) 1.9 /CMM (0.8-4.8); LYMPHOCYTES % (AUTO) 23.1 % (20.0-44.0); MEAN CORPUSCULAR HGB CONC 32 g/dl (31.0-36.0); MEAN CORPUSCULAR VOLUME 90 fL (82-100); MONOCYTES # (AUTO) 0.6 /CMM (0.1-1.30); MONOCYTES % (AUTO) 7.3 % (2.0-12.0); NEUTROPHILS # (AUTO) 5.5 /CMM (1.8-8.9); NEUTROPHILS % (AUTO) 66.4 % (43.0-81.0); PLATELET COUNT (AUTO) 178 /CMM (150-450); RED BLOOD CELL COUNT(AUTO) 3.95 MIL/uL (4.0-5.2); WHITE BLOOD COUNT (AUTO) 8.3 K/uL (4.3-11.0)
[2020-05-05 06:35] LABS: CALCIUM, SERUM 8.3 mg/dL (8.5-10.1); CREATININE 1.2 mg/dL (0.6-1.3); PHOSPHORUS 1.8 mg/dL (2.5-4.9); POTASSIUM 3.8 mmol/L (3.5-5.1)
[2020-05-05 06:41] LABS: MAGNESIUM 1.2 mg/dL (1.8-2.4)
--- NOTE | 2020-05-05 07:39 | NUR ---
MS RN CLOSING NOTES PATIENT AWAKE IN BED. A/OX1. NO S/S OF ACUTE RESPIRATORY DISTRESS; BREATHING IS EVEN AND UNLABORED. NO C/O PAIN AT THIS TIME. ILEOSTOMY PRESENT, INTACT & PATENT, 250 CC REMOVED. PHILLIP CATH PRESENT AND DRAINING WELL, 350 CC CLEAR YELLOW URINE REMOVED. IV PRESENT ON LEFT FA, SIZE 24, INTACT & PATENT, HEP LOCKED. SAFETY MEASURES IN PLACE AND PATIENT'S NEEDS MET. BED LOCKED, ALARM ON, SIDE RAILS X2, CALL LIGHT WITHIN REACH. WILL ENDORSE TO DAY SHIFT NURSE PLAN OF CARE.
[2020-05-05 08:00] VITALS: BP 157/88
[2020-05-05] MEDS ORDERED: MAGNESIUM OXIDE 400 MG TABLET PO ONE (09:00)
[2020-05-05] MEDS ORDERED: K PHOS NEUTRAL 250 MG TABLET PO ONE (09:00)
--- NOTE | 2020-05-05 10:14 | NUR ---
WOUND CARE CONSULT: PT PRESENTS WITH DRY SKIN TO LOWER EXTREMITIES, PRESENT ON ADMISSION. PT ALSO NOTED TO HAVE ILEOSTOMY WITH POUCH INTACT. RECOMMENDATIONS MADE FOR SKIN PROTECTION. DISCUSSED WITH NURSING STAFF. WILL SEE PRN.
--- NOTE | 2020-05-05 11:37 | NUR ---
MS RN NOTES CALLED PHARMACY AWAITING FOR EUCERIN CREAM. PER PHARMACY THEY WILL DELIVER CREAM.
[2020-05-05] MEDS: MINERAL OIL/PETROLATUM,WHITE 120 GM JAR TP SCH (11:40)
[2020-05-05] MEDS: IV NS 0.9% 1,000 ML IV PRN (11:41)
[2020-05-05] MEDS: INSULIN REGULAR, HUMAN 100 UNIT/ML 3 ML VIAL SQ PRN ×2 (11:56→17:34)
[2020-05-05] MEDS ORDERED: VANCOMYCIN 1 GM in IV D5W 250 ML IV SCH ×2 (14:00→17:00)
[2020-05-05 16:00] VITALS: BP 114/53
--- NOTE | 2020-05-05 16:40 | NUR ---
MS RN NOTES COVID TEST DONE, SENT TO LAB.
[2020-05-05] MEDS ORDERED: ERTA1VIA4 IV (17:02)
--- NOTE | 2020-05-05 19:00 | NUR ---
MS RN NOTES PATIENT RESTING COMFORTABLY IN BED, HOB ELEVATED. ALERT AND ORIENTED X1. NO S/S OF RESPIRATORY DISTRESS. DENIES ANY C/O PAIN NOR DISCOMFORT AST THIS TIME. PHILLIP CATHETER INTACT AND PATENT DRAINING YELLOW COLORED URINE VIA BEDSIDE. RIGHT HAND SL # 24 INTACT AND PATENT INFUSING NS AT 75ML/HR MEGHAN WELL. PATIENT FOR DISCHARGE BACK TO [facility]. DISCHARGE PACKET DONE. ALL BELONGINGS ACCOUNTED FOR. RIGHT HAND #24 IV ACCESS KEPT IN PLACE DUE TO ASSISTED LIVING NEEDS IV ACCESS. BED IN LOWEST POSITION, LOCKED. CALL LIGHT WITHIN REACH. IN NO APPARENT DISTRESS. AWAITING FOR TRANSPORT.
--- NOTE | 2020-05-05 20:00 | NUR ---
MS RN OPENING NOTE: Patient in bed sleeping comfortably, easily arousable. Patient on room air. Shows no signs of distress or SOB. Breathing unlabored and even. Patient denies pain. Ileostomy noted, patent and intact. Branch catheter noted, patent and draining well. Left FA IV noted, sizze #24; intact and patent. No redness or infiltration. Safety measure in place; bed in lowest position, side rails x 2 are up, brakes are on, alarm is on, and call light is within reach. Will continue care of plan.
[2020-05-05] MEDS: HEPARIN SODIUM, PORCINE 5000 UNITS/1 ML VIAL SQ SCH (20:14)
[2020-05-06] MEDS: BLOOD SUGAR DIAGNOSTIC 1 EACH STRIP IN SCH ×5 (00:45→23:40)
[2020-05-06] MEDS: INSULIN REGULAR, HUMAN 100 UNIT/ML 3 ML VIAL SQ PRN ×3 (00:46→18:06)
[2020-05-06 02:04] VITALS: BP 137/74
[2020-05-06] MEDS: MEROPENEM 500 MG in IV NS 0.9% 50 ML IV SCH ×2 (05:42→18:04)
[2020-05-06] MEDS: IV NS 0.9% 1,000 ML IV PRN ×2 (05:42→20:29)
--- NOTE | 2020-05-06 06:00 | NUR ---
MS RN CLOSING NOTE: Patient in bed sleeping comfortably, easily arousable. Patient on room air. Shows no signs of distress or SOB. Breathing unlabored and even. Safety measure in place; bed in lowest position, side rails x 2 are up, brakes are on, alarm is on, and call light is within reach. Will continue care of plan. Will endorse to next shift.
[2020-05-06 08:00] VITALS: BP 149/85
[2020-05-06 08:55] LABS: CALCIUM, SERUM 8.3 mg/dL (8.5-10.1); PHOSPHORUS 1.6 mg/dL (2.5-4.9); POTASSIUM 3.5 mmol/L (3.5-5.1)
[2020-05-06] MEDS: HEPARIN SODIUM, PORCINE 5000 UNITS/1 ML VIAL SQ SCH ×2 (09:13→20:24)
[2020-05-06] MEDS: MINERAL OIL/PETROLATUM,WHITE 120 GM JAR TP SCH (09:23)
[2020-05-06] MEDS ORDERED: K PHOS NEUTRAL 250 MG TABLET PO ONE (10:00)
[2020-05-06] MEDS ORDERED: MAGNESIUM OXIDE 400 MG TABLET PO ONE (10:30)
[2020-05-06 16:00] VITALS: BP 155/86
--- NOTE | 2020-05-06 18:00 | NUR ---
GIVEN K-PHOS TABS FOR LOW PHOSPHOROUS AND LOW POTASSIUM LEVELS.STILL AWAITING COVID RESULTS.
--- NOTE | 2020-05-06 19:30 | NUR ---
RN medsur opening notes Pt is sitting in bed comfortably. Pt is alert and orientedX1-2. Respiration is normal in room air. No SOB. No S/S of distress noted. IV sites at R hand# 24 is clean, intact, and infusing well NS@ 75 ml/hr. Branch cath is intact, patent and draining yellow urine. Ileostomy is intact and patent. Safety precautions is maintained. Bed at low position, brakes locked, side rails upX3, bed alarm is on and call light is within reach. Will continue to monitor.
[2020-05-06 20:00] VITALS: BP 140/79
[2020-05-07] MEDS: MEROPENEM 500 MG in IV NS 0.9% 50 ML IV SCH ×2 (05:04→18:05)
[2020-05-07] MEDS: BLOOD SUGAR DIAGNOSTIC 1 EACH STRIP IN SCH ×4 (05:33→23:48)
--- NOTE | 2020-05-07 06:45 | NUR ---
RN medsurg closing notes Pt is resting in bed comfortably. Pt is alert and orientedX1-2. Respiration is normal in room air. No SOB. No S/S of distress noted. VS is stable. Afebrile. Morning blood sugar is 91 and no coverage is given. Routine meds were given as ordered. IV sites at R hand# 24 is clean, intact, and infusing well NS@ 75 ml/hr. Branch cath is intact, patent and draining yellow urine. Ileostomy is intact and patent. Safety precautions is maintained. Bed at low position, brakes locked, side rails upX3, bed alarm is on and call light is within reach. Will endorse to morning nurse for VENUS.
--- NOTE | 2020-05-07 07:03 | NUR ---
BLUEPRINT ENGINEER OPENING NOTES RECEIVED PT IN BED, AWAKE AT THIS TIME, AO X1-2. NO SOB NOTED, NO S/S OF ANY ACUTE DISTRESS NOTED. NO C/O OF PAIN AT THIS TIME, RESPIRATIONS EVEN AND UNLABORED. IV ACCESS IN R-HAND G# 24, INTACT AND PATENT. PHILLIP CATHETER IN PLACE DRAINING TO GRAVITY CLEAR YELLOW URINE OUTPUT. ILEOSTOMY IN PLACE, DRAINING DARK LIQUID OUTPUT. ASPIRATION AND SAFETY PRECAUTIONS IN PLACE. BED IN LOWEST LOCKED POSITION, SIDE RAILS UP X2, HOB ELEVATED, CALL LIGHT WITHIN REACH . WILL CONTINUE TO MONITOR
[2020-05-07 07:58] LABS: POTASSIUM 3.2 mmol/L (3.5-5.1)
[2020-05-07 08:00] VITALS: BP 168/78
[2020-05-07 08:08] LABS: CREATININE 0.9 mg/dL (0.6-1.3); PHOSPHORUS 2.2 mg/dL (2.5-4.9)
[2020-05-07] MEDS: HEPARIN SODIUM, PORCINE 5000 UNITS/1 ML VIAL SQ SCH ×2 (08:44→21:08)
[2020-05-07] MEDS: MINERAL OIL/PETROLATUM,WHITE 120 GM JAR TP SCH (09:17)
[2020-05-07] MEDS ORDERED: K PHOS NEUTRAL 250 MG TABLET PO ONE (09:30)
[2020-05-07] MEDS: POTASSIUM CHLORIDE 20 MEQ TAB.PRT.SR PO SCH ×2 (09:31→10:38)
[2020-05-07] MEDS: IV NS 0.9% 1,000 ML IV PRN ×2 (10:39→23:48)
--- NOTE | 2020-05-07 18:55 | NUR ---
MANAGER ORACLE CLOSING NOTES PT IN BED AWAKE AT THIS TIME. PT REMAINED STABLE THROUGHOUT SHIFT. PHILLIP CATHETER CARE AND ILEOSTOMY CARE PROVIDED. ALL CARE, NEEDS, TREATMENT AND MEDICATIONS ADMINISTERED ANTICIPATED PER ORDER. PT KEPT CLEAN AND DRY. PT REPOSITIONED Q2HRS, PRN AND PER PROTOCOL. ASPIRATION AND SAFETY PRECAUTIONS IN PLACE. BED IN LOWEST LOCKED POSITION, SIDE RAILS UP, HOB ELEVATED, CALL LIGHT WITHIN REACH. WILL ENDORSE TO NIGHT FOR VENUS
--- NOTE | 2020-05-07 19:25 | NUR ---
MS RN NOTES PATIENT RECEIVED IN BED RESTING COMFORTABLY, AWAKEN BY NAME AND LIGHT TOUCH. ALERT AND ORIENTED X 1-2, FRENCH SPEAKING. PATIENT ON ROOM AIR WITH NO SIGNS OF RESPIRATORY DISTRESS AT THIS TIME, WITH EVEN NON-LABORED BREATHING, AND NO SOB NOTED. PATIENT SKIN WARM AND DRY TO TOUCH. IV ACCESS INTACT AND PATENT. PHILLIP CATHETER IN PLACE AND INTACT. ILEOSTOMY INTACT AND IN PLACE WITH NO LEAKAGE AT SITE. SAFETY PRECAUTIONS IMPLEMENTED WITH BED LOCKED, BED IN THE LOWEST POSITION, BILATERAL SIDE RAILS UP, BED ALARM ON, AND CALL LIGHT WITHIN EASY REACH OF THE PATIENT. WILL CONTINUE TO MONITOR PATIENT.
[2020-05-07 20:00] VITALS: BP 160/88
[2020-05-08 00:50] VITALS: BP 160/88
[2020-05-08] MEDS: MEROPENEM 500 MG in IV NS 0.9% 50 ML IV SCH ×2 (05:47→17:57)
[2020-05-08] MEDS: BLOOD SUGAR DIAGNOSTIC 1 EACH STRIP IN SCH ×4 (05:48→23:31)
--- NOTE | 2020-05-08 06:54 | NUR ---
MS RN NOTES PATIENT IN BED RESTING COMFORTABLY WATCHING TV. ON ROOM AIR WITH NO SIGNS OF RESPIRATORY DISTRESS, WITH EVEN NON-LABORED BREATHING, AND NO SOB NOTED. PATIENT IV ACCESS INTACT AND PATENT INFUSING NORMAL SALINE AT 75ml/hr. PATIENT SKIN KEPT CLEAN AND DRY. ILEOSTOMY INTACT AN IN PLACE WITH NO LEAKAGE. PHILLIP CATHETER IN PLACE AND URINE FLOWING BY GRAVITY. PATIENT'S BLOOD SUGAR 81, NO INSULIN, SLIDING SCALE COVERAGE NEEDED. NO PAIN OR DISCOMFORT, PROVIDED COMFORT MEASURES, AND MET ALL OF PATIENT'S NEEDS. SAFETY PRECAUTIONS IMPLEMENTED WITH BED LOCKED, BED IN THE LOWEST POSITION, BILATERAL SIDE RAILS UP, AND CALL LIGHT WITHIN EASY REACH OF PATIENT. WILL ENDORSE PLAN OF CARE TO UPCOMING DAYSHIFT NURSE.
--- NOTE | 2020-05-08 07:05 | NUR ---
COBBLER UPPER OPENING NOTES RECEIVED PT IN BED, AWAKE AT THIS TIME, AO X1-2. NO SOB NOTED, NO C/O OF PAIN AT THIS TIME, NO S/S OF ANY APPARENT DISTRESS NOTED. BREATHING EVEN AND UNLABORED. IV ACCESS IN R-HAND G# 24, INTACT, PATENT AND INFUSING WELL WITH NS@75ML/HR. PHILLIP CATHETER IN PLACE DRAINING TO GRAVITY CLEAR YELLOW URINE OUTPUT. ILEOSTOMY IN PLACE, DRAINING DARK LIQUID OUTPUT. ASPIRATION AND SAFETY PRECAUTIONS IN PLACE. BED IN LOWEST LOCKED POSITION, SIDE RAILS UP X2, HOB ELEVATED, CALL LIGHT WITHIN REACH . WILL CONTINUE TO MONITOR
[2020-05-08 08:00] VITALS: BP 152/90
[2020-05-08] MEDS: HEPARIN SODIUM, PORCINE 5000 UNITS/1 ML VIAL SQ SCH ×2 (08:34→21:44)
[2020-05-08] MEDS: MINERAL OIL/PETROLATUM,WHITE 120 GM JAR TP SCH (08:36)
[2020-05-08 08:41] LABS: BASOPHILS % (AUTO) 0.4 % (0.0-2.0); EOSINOPHILS % (AUTO) 1.7 % (0.0-6.0); HEMATOCRIT 37 % (33-45); HEMOGLOBIN 11.8 g/dL (11.5-14.8); LYMPHOCYTES # (AUTO) 1.3 /CMM (0.8-4.8); LYMPHOCYTES % (AUTO) 15.6 % (20.0-44.0); MEAN CORPUSCULAR HGB CONC 32 g/dl (31.0-36.0); MEAN CORPUSCULAR VOLUME 89 fL (82-100); MONOCYTES # (AUTO) 0.5 /CMM (0.1-1.30); MONOCYTES % (AUTO) 6.5 % (2.0-12.0); NEUTROPHILS # (AUTO) 6.2 /CMM (1.8-8.9); NEUTROPHILS % (AUTO) 75.8 % (43.0-81.0); PLATELET COUNT (AUTO) 204 /CMM (150-450); RED BLOOD CELL COUNT(AUTO) 4.15 MIL/uL (4.0-5.2); WHITE BLOOD COUNT (AUTO) 8.2 K/uL (4.3-11.0)
[2020-05-08 08:51] LABS: ALBUMIN 2.8 g/dL (3.4-5.0); BILIRUBIN,TOTAL 0.5 mg/dL (0.2-1.0); CALCIUM, SERUM 8.5 mg/dL (8.5-10.1); CREATININE 0.8 mg/dL (0.6-1.3); PHOSPHORUS 1.8 mg/dL (2.5-4.9); POTASSIUM 3.1 mmol/L (3.5-5.1); TOTAL PROTEIN, SERUM 6.4 g/dL (6.4-8.2)
[2020-05-08 09:04] LABS: MAGNESIUM 1.2 mg/dL (1.8-2.4)
--- NOTE | 2020-05-08 09:16 | NUR ---
RECEIVED REPORT FROM JENS STAFF NURSE ANESTHETIST. PT'S PHOSPHORUS IS 1.8. REPORT READ BACK. DOCTOR CORNELIO MADE AWARE OF PT'S PHOSPHORUS 1.8, POTASSIUM 3.1, MAGNESIUM 1.2. AWAITING ORDERS. WILL CONTINUE TO MONITOR
[2020-05-08 16:00] VITALS: BP 161/96
[2020-05-08] MEDS ORDERED: K PHOS NEUTRAL 250 MG TABLET PO ONE (16:00)
[2020-05-08] MEDS: INSULIN REGULAR, HUMAN 100 UNIT/ML 3 ML VIAL SQ PRN ×2 (18:01→23:31)
[2020-05-08 20:00] VITALS: BP 144/78
--- NOTE | 2020-05-08 20:30 | NUR ---
RN NOTES/ASSESSMENT: RECEIVED REPORT FROM FANTA GUZMAN. PT R/O COVID, PPE, N95, FACE SHIELD UTILIZED. MET WITH PT AT BED SIDE, PT IS A/O X2, ON RA RESPIRATIONS EVEN AND UNLABORED, DENIES ANY PAIN OR DISCOMFORT AT THIS TIME. IV ACCESS PATENT AND FLUSHING WELL, ON HL. PT HAS ILEOSTOMY ON RLQ. PHILLIP CATHETER IN PLACED, BAG DRAINING VIA GRAVITY. BLE KEPT OFFLOADED ON PILLOWS. SAFETY PRECAUTIONS FOR FALL INITIATED, CALL LIGHT IN REACH, WILL CONTINUE MONITORING PT.
--- NOTE | 2020-05-08 21:56 | NUR ---
RN NOTES/EPIC MD: NOTIFIED EPIC MD BEHAVIORAL HEALTH CONSULTANT REGARDING PT'S K LEVEL 3.1, MG 1.2, PHOS 1.8, NEUTRA PHOS K TAB 500 MG ORDERED DURING DAY FOR REPLACEMENT OF ELECTROLYTES. NO NEW ORDERS RECEIVED FROM MD.
--- NOTE | 2020-05-08 23:32 | NUR ---
fingerstick glucose check 106: accu check performed and result is 106, no insulin cobverage given per sliding scale.
[2020-05-09] MEDS: MEROPENEM 500 MG in IV NS 0.9% 50 ML IV SCH ×2 (05:00→17:26)
[2020-05-09] MEDS: BLOOD SUGAR DIAGNOSTIC 1 EACH STRIP IN SCH ×3 (05:09→18:12)
[2020-05-09] MEDS: INSULIN REGULAR, HUMAN 100 UNIT/ML 3 ML VIAL SQ PRN ×3 (05:10→12:38)
--- NOTE | 2020-05-09 05:11 | NUR ---
fingerstick blood glucose check 131: blood glucose check result is 131, 2units of insulin given per sliding scale.
--- NOTE | 2020-05-09 07:04 | NUR ---
end of shift report: pt remains a/o x2, able to make needs known. ileostomy bag remains in placed, surrounding area remains c/d/i, free from any leakage. iv access remains patent and flushing well, on hl. ble kept offloaded on pillows. accu check performed, all result wnl, no insulin coverage given per sliding scale. PLAN OF CARE: okay for DC, pending covid result. am care, wound care and complete linen change provided. VS remains stable, needs attended. Safety precautions for fall remains engaged, call light in reach, will endorse to day rn for continuity of care.
--- NOTE | 2020-05-09 07:30 | NUR ---
RN OPENING NOTES RECEIVED PATIENT IN BED RESTING. A/OX2-3, SOME CONFUSION, REORIENTED PATIENT. NOT IN ANY FORM OF DISTRESS. NO SOB. IV ACCESS INTACT AND PATENT. KEPT PATIENT SAFE AND COMFORTABLE. BED IN LOW/LOCKED POSITION, SIDERAILS UPX2, CALL LIGHT IN REACH. WILL CONT TO MONIOTR ACCORDINGLY.
[2020-05-09 08:00] VITALS: BP 158/92
[2020-05-09 08:26] LABS: CALCIUM, SERUM 8.3 mg/dL (8.5-10.1); CREATININE 0.9 mg/dL (0.6-1.3); PHOSPHORUS 1.9 mg/dL (2.5-4.9)
[2020-05-09 08:56] LABS: POTASSIUM 2.8 mmol/L (3.5-5.1)
[2020-05-09 08:57] LABS: MAGNESIUM 1.1 mg/dL (1.8-2.4)
[2020-05-09] MEDS: MINERAL OIL/PETROLATUM,WHITE 120 GM JAR TP SCH (08:58)
[2020-05-09] MEDS: HEPARIN SODIUM, PORCINE 5000 UNITS/1 ML VIAL SQ SCH (09:00)
[2020-05-09] MEDS ORDERED: POTASSIUM CL. PREMIX PERIPHER. 50 ML IV SCH (09:30)
--- NOTE | 2020-05-09 10:00 | NUR ---
rn notes patient refused heparin sq. patient crying saying "NO!" and swaying her arms. risk and benefits explained but still refused.
[2020-05-09] MEDS: Magnesium 1GM/D5W 100ML PREMIX 100 ML IV SCH ×2 (10:05→11:48)
[2020-05-09] MEDS ORDERED: POTASSIUM CHLORIDE 20 MEQ TAB.PRT.SR PO ONE (10:30)
--- NOTE | 2020-05-09 12:48 | NUR ---
RN NOTES MAGNESIUM AND POTASSIUM REPLACED ORDERED.
--- NOTE | 2020-05-09 14:00 | NUR ---
RN NOTES ILEOSTOMY BAG CHANGED.
[2020-05-09] MEDS ORDERED: K PHOS NEUTRAL 250 MG TABLET PO ONE (14:30)
[2020-05-09 16:00] VITALS: BP 140/76
[2020-05-09] MEDS ORDERED: NEUTRA PHOS 1 POWD.PACKET PO SCH (17:00)
--- NOTE | 2020-05-09 18:49 | NUR ---
DISCHARGED PATIENT BACK TO [facility] PICKED UP BY 2 COUNTERINTELLIGENCE/HUMINT SPECIALIST IN STABLE CONDITION. DC INSTRUCTIONS GIVEN TO PATIENT TO FOLLOW UP WITH HER PRIMARY DOCTOR AND CONT HOME MEDS, VERBALIZED UNDERSTANDING PATIENT STATED "OK" AND "YES". DC PAPERWORK HANDED TO COUNTERINTELLIGENCE/HUMINT SPECIALIST. PHOTOS TAKEN. NAME BAND REMOVED. REMOVED IV ACCESS, TIP INTACT AND APPLIED PRESSURE, NO COMPLICATIONS.
== END 2020-05-09 18:44 | DRG 720 ==
LOC: ER 14:00 → TELE 17:58 → ICU 05-03 03:13 → TELE 05-03 11:20 → MED 05-04 09:08
PROVIDERS: ADMIT Nurse Practitioner Acute Care; ATTEND Nurse Practitioner Acute Care
DX: A41.9 Sepsis, unspecified organism (principal); K55.069 Acute infarction of intestine, part and extent unspecified; N17.0 Acute kidney failure with tubular necrosis; K85.90 Acute pancreatitis without necrosis or infection, unspecified; D68.59 Other primary thrombophilia; E87.1 Hypo-osmolality and hyponatremia; R65.20 Severe sepsis without septic shock; K63.89 Other specified diseases of intestine; K21.9 Gastro-esophageal reflux disease without esophagitis; E87.5 Hyperkalemia; F03.90 Unspecified dementia, unspecified severity, without behavioral disturbance, psychotic disturbance, mood disturbance, and anxiety; E78.5 Hyperlipidemia, unspecified; Z90.49 Acquired absence of other specified parts of digestive tract; Z79.84 Long term (current) use of oral hypoglycemic drugs; Z79.899 Other long term (current) drug therapy; E86.0 Dehydration; E66.01 Morbid (severe) obesity due to excess calories; E86.9 Volume depletion, unspecified; E87.2 Acidosis; Q43.8 Other specified congenital malformations of intestine; Z93.2 Ileostomy status; Z93.3 Colostomy status; F48.2 Pseudobulbar affect; J98.11 Atelectasis; M51.37 Other intervertebral disc degeneration, lumbosacral region; E55.9 Vitamin D deficiency, unspecified; E87.6 Hypokalemia
CPT/HCPCS: 36415; 71045-TC; 80048-TC; 80053-TC; 80061-TC; 80076-TC; 80202-TC; 81000-TC; 82570-TC; 82962-TC; 83605-TC; 83690-TC; 83735-TC; 84100-TC; 84132-TC; 84155-TC; 84300-TC; 84484-TC; 85025-TC; 87040-TC; 87081-TC; A4216; A6403; G0378; J1644; J1815; J2185; J2543; J3370; J3475; J3480; J3490; J7030; J7042; J7050; J7060; U0003-CS